=== PATIENT | male | born 1935 | race Caucasian/White ===

== ENCOUNTER 2017-01-16 14:05 | Emergency (ER) | payer MEDICARE, MEDICAID ==
[2017-01-16 14:17] VITALS: BP 112/72
--- NOTE | 2017-01-16 14:33 | EDM.PDOC ---
ED HPI GENERAL MEDICAL PROBLEM - General Chief Complaint: General Stated Complaint: PAIN R SIDE. [phone] Time Seen by Provider: 01/16/17 14:27 Source of Information: Reports: Patient History Limitations: Reports: No limitations - History of Present Illness INITIAL COMMENTS - FREE TEXT/NARRATIVE: This 81 yo male patient reports to the ED due to pain in his right lower ribs that started this morning. The patient reports he has COPD and coughs all the time, but today he has pain only when he takes a deep breath or coughs. Onset: today Onset Date: 01/16/17 Onset Time: 09:00 Duration: Intermittent Location: Reports: chest (right lower rib pain) Quality: Reports: Ache Severity: moderate Improves with: Reports: None Worsens with: Reports: None Associated Symptoms: Reports: chest pain (right lower ribs) Treatments HOSPITALIST MEDICAL DIRECTOR: Reports: Breathing treatments Right Abdominal Pain Score (Numeric/FACES): 5 - Related Data Allergies Allergy/AdvReac Type Severity Reaction Status Date / Time Penicillins Allergy Mild Rash Verified 11/06/14 13:26 roflumilast Allergy Mild Itching Verified 11/06/14 13:26 tiotropium bromide Allergy Unknown UNKNOWN Verified 11/06/14 13:26 [From Spiriva with HandiHaler] cortisone Allergy Hallucinati Verified 09/14/15 13:21 ons diltiazem Allergy Rash Verified 11/06/14 13:26 simvastatin Allergy Itching Verified 09/14/15 13:21 tiotropium Allergy Itching Verified 11/06/14 13:26 Home Meds: Home Meds Pantoprazole [Protonix] 40 mg PO DAILY 09/15/15 [History] Albuterol/Ipratropium [DuoNeb 3.0-0.5 MG/3 ML] 3 ml NEB TID #90 neb 07/23/16 [Rx ] Budesonide [Pulmicort] 0.5 mg NEB BIDRT #60 neb 07/23/16 [Rx] Levofloxacin [Levaquin] 500 mg PO Q24H #5 tablet 07/23/16 [Rx] Prednisone [IJD: Prednisone] 5 mg PO DAILY #2 tab 07/23/16 [Rx] Prednisone [IJD: predniSONE] 40 mg PO WITHBREAKFAST #2 tab 07/23/16 [Rx] Prednisone [IJP: Prednisone] 10 mg PO DAILY #2 tab 07/23/16 [Rx] Prednisone [IMW: predniSONE] 20 mg PO WITHBREAKFAST #2 tab 07/23/16 [Rx] Past Medical History Cardiovascular History: Reports: CAD, Hypertension Respiratory History: Reports: COPD Gastrointestinal History: Reports: Colon polyp, Diverticulosis, GERD, Other ( see below) Other Gastrointestinal History: angiodysplasiaof the colon Musculoskeletal History: Reports: Other (see below) Other Musculoskeletal History: neuropathy, Dupuytren's contracture, spdondylosis Neurological History: Reports: Neuropathy, diabetic, Other (see below) Other Neuro History: carpal tunnel syndrome Endocrine/Metabolic History: Reports: Diabetes, type II Hematologic History: Reports: Anemia - Past Surgical History Cardiovascular Surgical History: Reports: None Respiratory Surgical History: Reports: None GI Surgical History: Reports: Colonoscopy Social & Family History - Family History Family Medical History: Noncontributory - Tobacco Use Smoking Status *Q: Unknown Ever Smoked Years of Tobacco use: 20 Used Tobacco, but Quit: Yes Month Tobacco Last Used: 12 Second Hand Smoke Exposure: No - Caffeine Use Caffeine Use: Reports: None - Alcohol Use Days Per Week of Alcohol Use: 1 Number of Drinks Per Day: 1 Total Drinks Per Week: 1 - Recreational Drug Use Recreational Drug Use: No - Living Situation & Occupation Living situation: Reports: single, , alone Occupation: retired ED ROS GENERAL - Review of Systems Review Of Systems: See Below Constitutional: Reports: no symptoms HEENT: Reports: No symptoms Respiratory: Reports: pleuritic chest pain (right lower ribs) Cardiovascular: Reports: No symptoms Endocrine: Reports: no symptoms GI/Abdominal: Reports: No symptoms : Reports: no symptoms Musculoskeletal: Reports: no symptoms Skin: Reports: no symptoms Neurological: Reports: no symptoms Psychiatric: Reports: No symptoms Hematologic/Lymphatic: Reports: no symptoms Immunologic: Reports: no symptoms ED EXAM, GENERAL - Physical Exam Exam: See Below Exam Limited By: No limitations General Appearance: alert, WD/WN, mild distress Eye Exam: bilateral eye: EOMI, normal inspection, PERRL Ears: normal external exam, normal canal, normal TMs, hearing loss Nose: normal inspection, normal mucosa, no blood Throat/Mouth: Normal inspection, Normal lips, Normal teeth, Normal gums, Normal oropharynx, Normal voice, No airway compromise Head: atraumatic, normocephalic Neck: normal inspection, supple, non-tender, full range of motion Respiratory/Chest: no respiratory distress, lungs clear, normal breath sounds, no accessory muscle use, other (chest wall tenderness to right lower quadrant, no evidence of trauma, no bruising) Cardiovascular: normal peripheral pulses, regular rate, rhythm, no edema, no gallop, no JVD, no murmur, no rub GI/Abdominal: normal bowel sounds, soft, non tender, no organomegaly, no distention, no abnormal bruit, no mass (Male) Exam: Deferred Rectal (Males) Exam: Deferred Back Exam: normal inspection, full range of motion, NT Extremities: normal inspection, normal range of motion, non-tender, normal capillary refill, no pedal edema Neurological: alert, oriented, CN II-XII intact, normal cognition, normal gait, normal reflexes, no motor/sensory deficits Psychiatric: normal affect, normal mood Skin Exam: Warm, Dry, Intact, Normal color, No rash Lymphatic: no adenopathy Course - Vital Signs Last Recorded V/S: Last Vital Signs Temp 36.3 C 01/16/17 14:15 Pulse 105 H 01/16/17 14:15 Resp 20 01/16/17 14:15 BP 112/72 01/16/17 14:15 Pulse Ox 92 L 01/16/17 14:15 - Orders/Labs/Meds Labs: Laboratory Tests 01/16/17 01/16/17 Range/Units 14:50 14:50 WBC 10.4 H (5.0-10.0) 10^3/uL RBC 3.72 L (4.6-6.2) 10^6/uL Hgb 12.1 L (14.0-18.0) g/dL Hct 36.9 L (40.0-54.0) % MCV 99.2 (80-100) fL MCH 32.5 (27.0-34.0) pg MCHC 32.8 L (33.0-35.0) g/dL Plt Count 298 (150-450) 10^3/uL Neut % (Auto) 73.1 (42.2-75.2) % Lymph % (Auto) 19.5 L (20.5-50.1) % [place] % (Auto) 5.7 (2-8) % Eos % (Auto) 1.3 (1.0-3.0) % Baso % (Auto) 0.4 (0.0-1.0) % Sodium 137 (135-145) mmol/L Potassium 3.9 (3.6-5.0) mmol/L Chloride 102 (101-111) mmol/L Carbon Dioxide 24.0 (21.0-31.0) mmol/L Anion Gap 14.9 BUN 24 H (7-18) mg/dL Creatinine 1.3 (0.6-1.3) mg/dL Est Cr Clr Drug Dosing 44.46 mL/min Estimated GFR (MDRD) 53 BUN/Creatinine Ratio 18.46 Glucose 153 H (74-105) mg/dL Calcium 9.2 (8.4-10.2) mg/dl Total Bilirubin 0.7 (0.2-1.0) mg/dL AST 24 (10-42) IU/L ALT 13 (10-60) IU/L Alkaline Phosphatase 48 (42-121) IU/L Total Protein 7.4 (6.7-8.2) g/dl Albumin 3.7 (3.2-5.5) g/dl Globulin 3.7 Albumin/Globulin Ratio 1.00 Departure - Departure Time of Disposition: 15:38 Disposition: Home, Self-Care 01 Condition: fair Clinical Impression: Right-sided chest wall pain Instructions: Chest Wall Pain, [id number] Forms: ED Department Discharge Care Plan Goals: The patient was advised of the examination, lab and x-ray results during the visit. The patient was encouraged to continue to do his nebulizer treatments as prescribed. If the patient has any additional symptoms or further concerns, the patient should follow-up with his primary care facility or return to the emergency department.
--- NOTE | 2017-01-16 15:02 | CR ---
CLINICAL HISTORY: 81-year-old male with lower right chest pain (exacerbated by cough) upon awakening this a.m. No known trauma this patient reported with chronic, asymmetric extrathoracic subcutaneous mass (right of midline) upper back of the neck, posteriorly. INTERPRETATION: 1. Asymmetric large extrathoracic soft tissue mass posteriorly, right of midline, over the right ape x. 2. COPD and blunting both costophrenic sulci with pleural parenchymal scarring left lower lobe. 3. Normal cardiac silhouette without cephalization of flow or signs of alveolar edema. 4. No new lung mass, hilar lymphadenopathy or focal lobar pneumonia when compared directly to Oct emb2013 chest radiograph. CONCLUSION: No acute new cardiopulmonary abnormality.
== END 2017-01-16 15:48 | disposition home or self-care (01) ==
LOC: DL.ED 14:05
DX: R07.89 Other chest pain (principal); I25.10 Atherosclerotic heart disease of native coronary artery without angina pectoris; I10 Essential (primary) hypertension; J44.9 Chronic obstructive pulmonary disease, unspecified; K21.9 Gastro-esophageal reflux disease without esophagitis; E11.40 Type 2 diabetes mellitus with diabetic neuropathy, unspecified; Z86.2 Personal history of diseases of the blood and blood-forming organs and certain disorders involving the immune mechanism; Z79.899 Other long term (current) drug therapy; Z88.8 Allergy status to other drugs, medicaments and biological substances; Z88.0 Allergy status to penicillin
CPT/HCPCS: 36415; 71020; 80053; 85025; 99283; 99284

== ENCOUNTER 2017-04-18 10:54 | Inpatient (IN) | payer MEDICARE, MEDICAID ==
[2017-04-18] MEDS: Albuterol/Ipratropium 3.0-0.5 MG/3 ML Neb Soln ONE ×2 (10:46→10:49)
[~2017-04-18 10:54] MED LIST: Albuterol 0.083% 2.5 MG/3 ML Neb Soln NEB ONE; Albuterol/Ipratropium 3.0-0.5 MG/3 ML Neb Soln NEB ONE; methylPREDNISolone Sodium Succinate 125 MG/2 ML SDV IVPUSH ONE
[2017-04-18] MEDS ORDERED: Sodium Chloride 0.9% 500 ML IV SCH (11:00)
[2017-04-18 11:09] LABS: CHLORIDE,CL 96 mmol/L (101-111); SODIUM,NA 130 mmol/L (135-145)
--- NOTE | 2017-04-18 12:09 | EDM.PDOC ---
ED HPI GENERAL MEDICAL PROBLEM - General Chief Complaint: Respiratory Problem Stated Complaint: IN BY AMBULANCE Time Seen by Provider: 04/18/17 11:00 Source of Information: Reports: Patient History Limitations: Reports: No Limitations - History of Present Illness INITIAL COMMENTS - FREE TEXT/NARRATIVE: patient is an 81-year-old male who has a history of COPD. He states that he began feeling yesterday and gradually increased shortness of breath today. He states the shortness of breath is worse he gets up and walks around better when he sits still.he denies fever chills nausea or vomiting patient uses home oxygen as needed not continuously the he states that he began to have increased need over the last 3 days. At the time of my exam he is having no pain he is in no acute distress he speaks in full sentences. He is able to give history Onset: Gradual Duration: Day(s): (3) Severity: Moderate Improves with: Reports: Rest Worsens with: Reports: Movement - Related Data Allergies Allergy/AdvReac Type Severity Reaction Status Date / Time Penicillins Allergy Mild Rash Verified 11/06/14 13:26 roflumilast Allergy Mild Itching Verified 11/06/14 13:26 tiotropium bromide Allergy Unknown UNKNOWN Verified 11/06/14 13:26 [From Spiriva with HandiHaler] cortisone Allergy Hallucinati Verified 09/14/15 13:21 ons diltiazem Allergy Rash Verified 11/06/14 13:26 simvastatin Allergy Itching Verified 09/14/15 13:21 tiotropium Allergy Itching Verified 11/06/14 13:26 Home Meds: Home Meds Pantoprazole [ProTONIX] 40 mg PO DAILY 09/15/15 [History] Albuterol/Ipratropium [DuoNeb 3.0-0.5 MG/3 ML] 3 ml NEB TID #90 neb 07/23/16 [Rx ] Budesonide [Pulmicort] 0.5 mg NEB BIDRT #60 neb 07/23/16 [Rx] Levofloxacin [Levaquin] 500 mg PO Q24H #5 tablet 07/23/16 [Rx] Prednisone [IJD: Prednisone] 5 mg PO DAILY #2 tab 07/23/16 [Rx] Prednisone [IJD: predniSONE] 40 mg PO WITHBREAKFAST #2 tab 07/23/16 [Rx] Prednisone [IJP: Prednisone] 10 mg PO DAILY #2 tab 07/23/16 [Rx] Prednisone [IMW: predniSONE] 20 mg PO WITHBREAKFAST #2 tab 07/23/16 [Rx] Past Medical History Cardiovascular History: Reports: CAD, Hypertension Respiratory History: Reports: COPD Gastrointestinal History: Reports: Colon Polyp, Diverticulosis, GERD, Other ( See Below) Other Gastrointestinal History: angiodysplasiaof the colon Musculoskeletal History: Reports: Other (See Below) Other Musculoskeletal History: neuropathy, Dupuytren's contracture, spdondylosis Neurological History: Reports: Neuropathy, Diabetic, Other (See Below) Other Neuro History: carpal tunnel syndrome Endocrine/Metabolic History: Reports: Diabetes, Type II Hematologic History: Reports: Anemia - Past Surgical History Cardiovascular Surgical History: Reports: None Respiratory Surgical History: Reports: None GI Surgical History: Reports: Colonoscopy Social & Family History - Family History Family Medical History: Noncontributory - Tobacco Use Smoking Status *Q: Unknown Ever Smoked Years of Tobacco use: 20 Used Tobacco, but Quit: Yes Month Tobacco Last Used: 12 Second Hand Smoke Exposure: No - Caffeine Use Caffeine Use: Reports: None - Alcohol Use Days Per Week of Alcohol Use: 1 Number of Drinks Per Day: 1 Total Drinks Per Week: 1 - Recreational Drug Use Recreational Drug Use: No - Living Situation & Occupation Living situation: Reports: Single, , Alone Occupation: Retired ED ROS GENERAL - Review of Systems Review Of Systems: ROS reveals no pertinent complaints other than HPI. ED EXAM, GENERAL - Physical Exam Exam: See Below Exam Limited By: No Limitations General Appearance: Alert, WD/WN, Mild Distress Eye Exam: Bilateral Eye: PERRL Nose: Normal Inspection, Normal Mucosa, No Blood Throat/Mouth: Normal Lips, Normal Oropharynx, Normal Voice, No Airway Compromise Head: Atraumatic, Normocephalic Neck: Normal Inspection, Supple, Non-Tender, Full Range of Motion Respiratory/Chest: No Accessory Muscle Use, Chest Non-Tender, Rhonchi, Wheezing. No: Accessory Muscle Use Cardiovascular: Normal Peripheral Pulses, Regular Rate, Rhythm, No Edema, No Gallop, No JVD, No Murmur, No Rub (Male) Exam: No Hernia, Normal Inspection, Normal Prostate, Circumcised Back Exam: Normal Inspection, Full Range of Motion, NT Extremities: Normal Inspection, Normal Range of Motion, Non-Tender, No Pedal Edema, Normal Capillary Refill. No: Pedal Edema Neurological: Alert, Oriented, Normal Cognition Psychiatric: Normal Affect, Normal Mood Skin Exam: Warm, Dry, Intact, Normal Color, No Rash Course - Vital Signs Last Recorded V/S: Last Vital Signs Temp 98.1 F 04/18/17 10:30 Pulse 102 H 04/18/17 10:45 Resp 22 H 04/18/17 10:30 BP 88/55 L 04/18/17 10:30 Pulse Ox 90 L 04/18/17 10:54 - Orders/Labs/Meds Orders: Active Orders 24 hr Category Date Time Status Peripheral IV Care [RC] . DIRECTED Care 04/18/17 10:34 Active RT Aerosol Therapy [RC] ASDIRECTED Care 04/18/17 10:36 Active CULTURE BLOOD [BC] Stat Lab 04/18/17 10:40 Received CULTURE BLOOD [BC] Stat Lab 04/18/17 11:03 Results CULTURE SPUTUM + SMEAR [RM] Stat Lab 04/18/17 11:58 Results Sodium Chloride 0.9% [Normal Saline] 1,000 ml Med 04/18/17 12:30 Active IV ASDIRECTED Sodium Chloride 0.9% [Normal Saline] 500 ml Med 04/18/17 11:00 Active IV .BOLUS Sodium Chloride 0.9% [Saline Flush] Med 04/18/17 10:34 Active 10 ml FLUSH ASDIRECTED PRN Blood Culture x2 Reflex Set [OM.PC] Stat Oth 04/18/17 10:34 Ordered Peripheral IV Insertion Adult [OM.PC] Routine Oth 04/18/17 10:34 Ordered Medication Orders Sodium Chloride (Normal Saline) 500 mls @ 999 mls/hr IV .BOLUS TERESA Last Admin: 04/18/17 11:00 Dose: 999 mls/hr Sodium Chloride (Normal Saline) 1,000 mls @ 125 mls/hr IV ASDIRECTED TERESA Sodium Chloride (Saline Flush) 10 ml FLUSH ASDIRECTED PRN PRN Reason: Keep Vein Open Labs: Laboratory Tests 04/18/17 04/18/17 04/18/17 Range/Units 10:40 10:40 10:40 WBC 19.4 H (5.0-10.0) 10^3/uL RBC 3.70 L (4.6-6.2) 10^6/uL Hgb 11.6 L (14.0-18.0) g/dL Hct 35.4 L (40.0-54.0) % MCV 95.7 (80-100) fL MCH 31.4 (27.0-34.0) pg MCHC 32.8 L (33.0-35.0) g/dL Plt Count 424 (150-450) 10^3/uL Neut % (Auto) 84.6 H (42.2-75.2) % Lymph % (Auto) 8.5 L (20.5-50.1) % [place] % (Auto) 6.7 (2-8) % Eos % (Auto) 0.1 L (1.0-3.0) % Baso % (Auto) 0.1 (0.0-1.0) % Sodium 130 L (135-145) mmol/L Potassium 4.3 (3.6-5.0) mmol/L Chloride 96 L (101-111) mmol/L Carbon Dioxide 23.0 (21.0-31.0) mmol/L Anion Gap 15.3 BUN 24 H (7-18) mg/dL Creatinine 1.0 (0.6-1.3) mg/dL Est Cr Clr Drug Dosing TNP Estimated GFR (MDRD) > 60 BUN/Creatinine Ratio 24.00 Glucose 191 H (74-105) mg/dL Lactic Acid (0.5-2.2) mmol/L Calcium 9.2 (8.4-10.2) mg/dl Total Bilirubin 0.7 (0.2-1.0) mg/dL AST 51 H (10-42) IU/L ALT 58 (10-60) IU/L Alkaline Phosphatase 76 (42-121) IU/L Creatine Kinase 23 L (26-174) IU/L Creatine Kinase Index 7.8 H (0-2.4) % CK-MB (CK-2) 1.80 (0.4-4.7) ng/mL Troponin I < 0.02 (0.00-0.02) ng/ml B-Natriuretic Peptide 146 H (0-100) pg/ml Total Protein 7.7 (6.7-8.2) g/dl Albumin 2.8 L (3.2-5.5) g/dl Globulin 4.9 Albumin/Globulin Ratio 0.57 04/18/17 Range/Units 10:40 WBC (5.0-10.0) 10^3/uL RBC (4.6-6.2) 10^6/uL Hgb (14.0-18.0) g/dL Hct (40.0-54.0) % MCV (80-100) fL MCH (27.0-34.0) pg MCHC (33.0-35.0) g/dL Plt Count (150-450) 10^3/uL Neut % (Auto) (42.2-75.2) % Lymph % (Auto) (20.5-50.1) % [place] % (Auto) (2-8) % Eos % (Auto) (1.0-3.0) % Baso % (Auto) (0.0-1.0) % Sodium (135-145) mmol/L Potassium (3.6-5.0) mmol/L Chloride (101-111) mmol/L Carbon Dioxide (21.0-31.0) mmol/L Anion Gap BUN (7-18) mg/dL Creatinine (0.6-1.3) mg/dL Est Cr Clr Drug Dosing Estimated GFR (MDRD) BUN/Creatinine Ratio Glucose (74-105) mg/dL Lactic Acid 1.6 (0.5-2.2) mmol/L Calcium (8.4-10.2) mg/dl Total Bilirubin (0.2-1.0) mg/dL AST (10-42) IU/L ALT (10-60) IU/L Alkaline Phosphatase (42-121) IU/L Creatine Kinase (26-174) IU/L Creatine Kinase Index (0-2.4) % CK-MB (CK-2) (0.4-4.7) ng/mL Troponin I (0.00-0.02) ng/ml B-Natriuretic Peptide (0-100) pg/ml Total Protein (6.7-8.2) g/dl Albumin (3.2-5.5) g/dl Globulin Albumin/Globulin Ratio Meds: Medications Generic Name Dose Route Start Last Admin Trade Name Freq PRN Reason Stop Dose Admin Sodium Chloride 500 mls @ 999 mls/hr 04/18/17 11:00 04/18/17 11:00 Normal Saline IV 999 mls/hr .BOLUS TERESA Administration Sodium Chloride 1,000 mls @ 125 mls/hr 04/18/17 12:30 Normal Saline IV ASDIRECTED TERESA Sodium Chloride 10 ml 04/18/17 10:34 Saline Flush FLUSH ASDIRECTED PRN Keep Vein Open Discontinued Medications Generic Name Dose Route Start Last Admin Trade Name Freq PRN Reason Stop Dose Admin Albuterol 2.5 mg 04/18/17 10:36 Proventil Neb Soln NEB 04/18/17 10:37 ONETIME ONE Albuterol 5 mg 04/18/17 10:48 04/18/17 10:50 Proventil Neb Soln NEB 04/18/17 10:49 5 mg ONETIME ONE Administration Albuterol/Ipratropium Confirm 04/18/17 10:40 04/18/17 10:49 Duoneb 3.0-0.5 Mg/3 Ml Administered 04/18/17 10:41 Not Given Dose 3 ml .ROUTE .STK-MED ONE Albuterol/Ipratropium 3 ml 04/18/17 10:47 04/18/17 10:49 Duoneb 3.0-0.5 Mg/3 Ml NEB 04/18/17 10:48 3 ml ONETIME ONE Administration Methylprednisolone Sodium Succinate 125 mg 04/18/17 10:36 04/18/17 11:30 Solu-Medrol IVPUSH 04/18/17 10:37 125 mg ONETIME ONE Administration - Radiology Interpretation Free Text/Narrative:: x-ray of the chest shows right lower lobe pneumonia per radiology report reviewed by myself - Re-Assessments/Exams Free Text/Narrative Re-Assessment/Exam: 04/18/17 12:12 patient is a chronically ill 81-year-old male who had IV established and was given DuoNeb x1 albuterol x2 and Solu-Medrol 125 and had significant decrease in work of breathing. Labs were obtained and reviewedand discussed with the patient. As well as Dr. Mix the hospitalist spine surgeon and the patient was admitted to the hospital. The patient remained stable with admission 04/18/17 12:52 Departure - Departure Time of Disposition: 12:52 Disposition: Admitted As Inpatient 64 Condition: fair Clinical Impression: Pneumonia of right lower lobe due to infectious organism, Hyponatremia Chronic obstructive pulmonary disease Qualifiers: COPD type: COPD with acute exacerbation Qualified Code(s): J44.1 - Chronic obstructive pulmonary disease with (acute) exacerbation Leukocytosis Qualifiers: Leukocytosis type: bandemia Qualified Code(s): D72.825 - Bandemia - Discharge Information Additional Instructions: Patient will be admitted for further evaluation and treatment the patient was agreeable to this plan of care and [facility] time of admissionpatient will have 750 mg of Levaquin started while in the emergency room. Cultures have been obtained - My Orders Last 24 Hours: My Active Orders 04/18/17 10:34 Peripheral IV Care [RC] . DIRECTED Sodium Chloride 0.9% [Saline Flush] 10 ml FLUSH ASDIRECTED PRN Blood Culture x2 Reflex Set [OM.PC] Stat Peripheral IV Insertion Adult [OM.PC] Routine 04/18/17 10:36 RT Aerosol Therapy [RC] ASDIRECTED 04/18/17 10:40 CULTURE BLOOD [BC] Stat 04/18/17 11:00 Sodium Chloride 0.9% [Normal Saline] 500 ml IV .BOLUS 04/18/17 11:03 CULTURE BLOOD [BC] Stat 04/18/17 11:58 CULTURE SPUTUM + SMEAR [RM] Stat 04/18/17 12:30 Sodium Chloride 0.9% [Normal Saline] 1,000 ml IV ASDIRECTED - Assessment/Plan Last 24 Hours: My Active Orders 04/18/17 10:34 Peripheral IV Care [RC] . DIRECTED Sodium Chloride 0.9% [Saline Flush] 10 ml FLUSH ASDIRECTED PRN Blood Culture x2 Reflex Set [OM.PC] Stat Peripheral IV Insertion Adult [OM.PC] Routine 04/18/17 10:36 RT Aerosol Therapy [RC] ASDIRECTED 04/18/17 10:40 CULTURE BLOOD [BC] Stat 04/18/17 11:00 Sodium Chloride 0.9% [Normal Saline] 500 ml IV .BOLUS 04/18/17 11:03 CULTURE BLOOD [BC] Stat 04/18/17 11:58 CULTURE SPUTUM + SMEAR [RM] Stat 04/18/17 12:30 Sodium Chloride 0.9% [Normal Saline] 1,000 ml IV ASDIRECTED
--- NOTE | 2017-04-18 12:20 | CR ---
CLINICAL HISTORY: 81-year-old male "short of air" INTERPRETATION: Abnormal AP portable chest. Asymmetric dense new pneumonic like consolidation right lower lobe when compared to 16 January 2017 exam. Clinical aspiration? 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 Normal cardiac silhouette without alveolar edema or dependent effusion. (Chronic blunting of the cos tophrenic sulci). No lung mass or other focal lobar consolidation. CONCLUSION: Right lower lobe pneumonia.
[2017-04-18] MEDS ORDERED: Sodium Chloride 0.9% 1,000 ML IV SCH (12:30)
[2017-04-18] MEDS ORDERED: Levofloxacin/Dextrose 5%-Water 750 MG in Premix Bag 1 BAG IV ONE (12:55)
[2017-04-18] MEDS ORDERED: Sodium Chloride 0.9% 10 ML Syringe FLUSH PRN (13:56)
[2017-04-18] MEDS ORDERED: Zolpidem 5 MG Tab PO PRN (13:56)
[2017-04-18] MEDS ORDERED: Acetaminophen 325 MG Tab PO PRN (13:56)
[2017-04-18] MEDS ORDERED: Albuterol 0.083% 2.5 MG/3 ML Neb Soln NEB PRN (13:59)
--- NOTE | 2017-04-18 14:09 | PCM.HP ---
H&P History of Present Illness - General Date of Service: 04/18/17 Admit Problem/Dx: Admission Diagnosis/Problem Admission Diagnosis/Problem Pneumonia Source of Information: Patient - History of Present Illness Initial Comments - Free Text/Narative: History of coronary artery disease, COPD on home oxygen, type 2 diabetes on no medication, hypertension. he has a chronic baseline shortness of breath, was recently evaluated by cardiology Dr. Almonte, if this is likely not cardiac in origin but recommended further pulmonary followup He presented with about a one-week history of increasing shortness of breath, cough, subjective fever, sputum production. the shortness of breath has been getting worse. He started to use his oxygen that he has been rarely doing. - Related Data Allergies/Adverse Reactions: Allergies Allergy/AdvReac Type Severity Reaction Status Date / Time Penicillins Allergy Mild Rash Verified 04/18/17 13:42 roflumilast Allergy Mild Itching Verified 04/18/17 13:42 tiotropium bromide Allergy Unknown UNKNOWN Verified 04/18/17 13:42 [From Spiriva with HandiHaler] cortisone Allergy Hallucinati Verified 04/18/17 13:42 ons diltiazem Allergy Rash Verified 04/18/17 13:42 simvastatin Allergy Itching Verified 04/18/17 13:42 tiotropium Allergy Itching Verified 04/18/17 13:42 Home Medications: Home Meds Pantoprazole [ProTONIX] 40 mg PO DAILY 09/15/15 [History] Albuterol/Ipratropium [DuoNeb 3.0-0.5 MG/3 ML] 3 ml NEB TID #90 neb 07/23/16 [Rx ] Budesonide [Pulmicort] 0.5 mg NEB BIDRT #60 neb 07/23/16 [Rx] Albuterol [Proventil Neb Soln] 2.5 mg NEB QID PRN 04/18/17 [History] Amoxicillin 1,000 mg PO DAILY 04/18/17 [History] Clopidogrel [Plavix] 75 mg PO DAILY 04/18/17 [History] Docusate Sodium [Colace] 100 mg PO DAILY PRN 04/18/17 [History] Fluticasone Propionate [Flonase] 1 spray NASBOTH DAILY 04/18/17 [History] Ranitidine HCl [Zantac] 150 mg PO BID 04/18/17 [History] Past Medical History Cardiovascular History: Reports: CAD, Hypertension Respiratory History: Reports: COPD Gastrointestinal History: Reports: Colon Polyp, Diverticulosis, GERD, Other ( See Below) Other Gastrointestinal History: angiodysplasiaof the colon Musculoskeletal History: Reports: Other (See Below) Other Musculoskeletal History: neuropathy, Dupuytren's contracture, spdondylosis Neurological History: Reports: Neuropathy, Diabetic, Other (See Below) Other Neuro History: carpal tunnel syndrome Endocrine/Metabolic History: Reports: Diabetes, Type II Hematologic History: Reports: Anemia - Past Surgical History Cardiovascular Surgical History: Reports: None Respiratory Surgical History: Reports: None GI Surgical History: Reports: Colonoscopy Social & Family History - Family History Family Medical History: Noncontributory - Tobacco Use Smoking Status *Q: Unknown Ever Smoked Years of Tobacco use: 20 Used Tobacco, but Quit: Yes Month Tobacco Last Used: 12 Second Hand Smoke Exposure: No - Caffeine Use Caffeine Use: Reports: None - Alcohol Use Days Per Week of Alcohol Use: 1 Number of Drinks Per Day: 1 Total Drinks Per Week: 1 - Recreational Drug Use Recreational Drug Use: No - Living Situation & Occupation Living situation: Reports: Single, , Alone Occupation: Retired H&P Review of Systems - Review of Systems: Review Of Systems: See Below General: Reports: Fever (subjective), Chills, Malaise, Weakness Pulmonary: Reports: Shortness of Breath, Wheezing. Denies: Pleuritic Chest Pain Cardiovascular: Reports: Dyspnea on Exertion. Denies: Chest Pain, Palpitations Gastrointestinal: Denies: Abdominal Pain Musculoskeletal: Denies: Neck Pain Psychiatric: Denies: Confusion Exam - Exam Exam: See Below - Vital Signs Vital Signs: Last Vital Signs Temp 37.3 C 04/18/17 13:36 Pulse 53 L 04/18/17 13:36 Resp 20 04/18/17 13:36 BP 106/67 04/18/17 13:36 Pulse Ox 93 L 04/18/17 13:56 Weight: 70.851 kg - Exam General: Alert, Oriented HEENT: EOMI Neck: Supple Lungs: Normal Respiratory Effort, Wheezing (bilateral). No: Rales Cardiovascular: Regular Rate, Regular Rhythm Abdomen: Normal Bowel Sounds, Soft Extremities: No: Edema Skin: Warm, Other (large lipoma on the upper back) Neuro Extensive - Mental Status: Alert, Oriented x3, Normal Mood/Affect, Normal Cognition Psychiatric: Alert, Normal Affect, Normal Mood - Patient Data Result Diagrams: 04/18/17 10:40 04/18/17 10:40 Imaging Impressions last 24 hrs: chest x-ray per official reading shows a right lower lobe infiltrate *Q Meaningful Use (ADM) - VTE *Q VTE Criteria *Q: - Stroke *Q Stroke Criteria *Q: - AMI *Q AMI Criteria *Q: - Problem List (1) Hyperglycemia SNOMED Code(s): 83808109 ICD Code: R73.9 - HYPERGLYCEMIA, UNSPECIFIED Status: Acute Current Visit : Yes (2) Pneumonia of right lower lobe due to infectious organism SNOMED Code(s): 664871794, 148708383 ICD Code: J18.1 - LOBAR PNEUMONIA, UNSPECIFIED ORGANISM Status: Acute Current Visit: Yes (3) Acute exacerbation of chronic obstructive airways disease SNOMED Code(s): 158805200 ICD Code: J44.1 - CHRONIC OBSTRUCTIVE PULMONARY DISEASE W (ACUTE) EXACERBATION Status: Acute Current Visit: No (4) Hyponatremia SNOMED Code(s): 89032056 ICD Code: E87.1 - HYPO-OSMOLALITY AND HYPONATREMIA Status: Acute Current Visit: No Problem List Initiated/Reviewed/Updated: Yes Orders Last 24hrs: Active Orders 24 hr Category Date Time Status Antiembolic Devices [RC] PER UNIT ROUTINE Care 04/18/17 13:58 Ordered Blood Glucose Check, Bedside [RC] QIDACANDBED Care 04/18/17 13:56 Ordered Oxygen Therapy [RC] PRN Care 04/18/17 13:56 Ordered Up With Assistance [RC] ASDIRECTED Care 04/18/17 13:56 Ordered VTE/DVT Education [RC] PER UNIT ROUTINE Care 04/18/17 13:56 Ordered Vital Signs [RC] Q4H Care 04/18/17 13:56 Ordered Consistent Carbohydrate Diet [DIET] Diet 04/18/17 Dinner Ordered Acetaminophen [Tylenol] Med 04/18/17 13:56 Ordered 650 mg PO Q4H PRN Albuterol [Proventil Neb Soln] Med 04/18/17 13:59 Ordered 2.5 mg NEB Q4HRRT PRN Albuterol/Ipratropium [DuoNeb 3.0-0.5 MG/3 ML] Med 04/18/17 14:00 Ordered 3 ml NEB TID Budesonide [Pulmicort] Med 04/18/17 18:00 Ordered 0.5 mg NEB BIDRT Clopidogrel [Plavix] Med 04/19/17 09:00 Ordered 75 mg PO DAILY Docusate Sodium [Colace] Med 04/18/17 13:56 Ordered 100 mg PO BID PRN Fluticasone Propionate [Flonase] Med 04/19/17 09:00 Ordered 1 spray NASBOTH DAILY Heparin Sodium Med 04/18/17 14:00 Ordered 5,000 units SUBCUT Q8HR Insulin Aspart [NovoLOG] Med 04/18/17 17:00 Ordered See Protocol SUBCUT TIDAC Levofloxacin/Dextrose 5%-Water [Levaquin in D5W 750 MG/ Med 04/19/17 14:00 Ordered 150 ML] 750 mg Premix Bag 1 bag IV Q24H Pantoprazole [ProTONIX] Med 04/19/17 09:00 Ordered 40 mg PO DAILY Sodium Chloride 0.9% [Saline Flush] Med 04/18/17 13:56 Ordered 10 ml FLUSH ASDIRECTED PRN Zolpidem [Ambien] Med 04/18/17 13:56 Ordered 5 mg PO BEDTIME PRN methylPREDNISolone Sod Succ [Solu-MEDROL] Med 04/18/17 14:00 Ordered 40 mg IVPUSH Q8H Antiembolic Hose [OM.PC] Per Unit Routine Oth 04/18/17 13:57 Ordered Saline Lock Insert [OM.PC] Routine Oth 04/18/17 13:56 Ordered Resuscitation Status Routine Resus Stat 04/18/17 13:56 Ordered Medication Orders Acetaminophen (Tylenol) 650 mg PO Q4H PRN PRN Reason: Pain (Mild 1-3)/fever Albuterol (Proventil Neb Soln) 2.5 mg NEB Q4HRRT PRN PRN Reason: Shortness of Breath Albuterol/Ipratropium (Duoneb 3.0-0.5 Mg/3 Ml) 3 ml NEB TID TERESA Budesonide (Pulmicort) 0.5 mg NEB BIDRT TERESA Clopidogrel Bisulfate (Plavix) 75 mg PO DAILY [facility] Docusate Sodium (Colace) 100 mg PO BID PRN PRN Reason: Constipation Fluticasone Propionate (Flonase) gm NASBOTH DAILY [facility] Heparin Sodium (Porcine) (Heparin Sodium) 5,000 units SUBCUT Q8HR TERESA Levofloxacin/Dextrose 750 mg/ (Premix) 150 mls @ 100 mls/hr IV ONETIME ONE Stop: 04/18/17 14:24 Last Admin: 04/18/17 13:04 Dose: 100 mls/hr Levofloxacin/Dextrose 750 mg/ (Premix) 150 mls @ 100 mls/hr IV Q24H TERESA Insulin Aspart (Novolog) 0 unit SUBCUT TIDAC TERESA PRN Reason: Protocol Methylprednisolone Sodium Succinate (Solu-Medrol) 40 mg IVPUSH Q8H TERESA Pantoprazole Sodium (Protonix) 40 mg PO DAILY [facility] Sodium Chloride (Saline Flush) 10 ml FLUSH ASDIRECTED PRN PRN Reason: Keep Vein Open Sodium Chloride (Saline Flush) 10 ml FLUSH ASDIRECTED PRN PRN Reason: Keep Vein Open Zolpidem Tartrate (Ambien) 5 mg PO BEDTIME PRN PRN Reason: Sleep Assessment/Plan Comment:: the patient is an 81-year-old gentleman with a history of coronary artery disease, COPD, diet-controlled diabetes. Acute community acquired right lower lobe pneumonia Will obtain blood culture, sputum culture The patient has penicillin allergy Will start with IV levofloxacin Acute on chronic hypoxemic respiratory failure Supplemental oxygen as needed Acute COPD exacerbation Start IV steroids, Pulmicort He was scheduled and p.r.n. DuoNeb Hyperglycemia with diet-controlled diabetes Likely exacerbated by the steroids Will give her supplemental insulin as needed follow blood sugars and consider long-acting insulin if needed Hyponatremia Mild, likely secondary to the lung disease Follow periodically History of coronary artery disease Recent evaluation with cardiology was reassuring Continue Plavix Gastroesophageal reflux disease treat with protonix DVT prophylaxis with subcutaneous heparin
[2017-04-18] MEDS: Heparin Sodium 5,000 Units/ML Vial SUBCUT SCH ×2 (14:41→21:00)
[2017-04-18] MEDS: Albuterol/Ipratropium 3.0-0.5 MG/3 ML Neb Soln NEB SCH ×3 (14:42→20:57)
[2017-04-18] MEDS ORDERED: Insulin Aspart 100 Units/ML 3 ML Pen SUBCUT SCH (17:00)
[2017-04-18] MEDS: Budesonide 0.5 MG/2 ML Neb Susp NEB SCH (18:04)
[2017-04-18] MEDS: Sodium Chloride 0.9% 10 ML Syringe FLUSH PRN (21:00)
[2017-04-18] MEDS: methylPREDNISolone Sodium Succinate 40 MG/1 ML SDV IVPUSH SCH (21:01)
[2017-04-18] MEDS: Insulin Aspart 100 Units/ML 3 ML Pen SUBCUT SCH (22:34)
[2017-04-18] MEDS: Docusate Sodium 100 MG Cap PO PRN (22:36)
[2017-04-19] MEDS: Heparin Sodium 5,000 Units/ML Vial SUBCUT SCH ×3 (05:48→22:02)
[2017-04-19] MEDS: Pantoprazole 40 MG Tab.CR PO SCH (05:51)
[2017-04-19] MEDS: Sodium Chloride 0.9% 10 ML Syringe FLUSH PRN ×3 (06:27→22:20)
[2017-04-19] MEDS: methylPREDNISolone Sodium Succinate 40 MG/1 ML SDV IVPUSH SCH ×3 (06:27→22:17)
[2017-04-19] MEDS: Budesonide 0.5 MG/2 ML Neb Susp NEB SCH ×2 (07:31→18:41)
[2017-04-19] MEDS: Albuterol/Ipratropium 3.0-0.5 MG/3 ML Neb Soln NEB SCH ×3 (07:31→21:45)
[2017-04-19] MEDS: Insulin Aspart 100 Units/ML 3 ML Pen SUBCUT SCH ×4 (08:21→21:44)
[2017-04-19] MEDS: Fluticasone Propionate Nasal Spray 16 GM Bottle NASBOTH SCH (08:22)
[2017-04-19] MEDS: Clopidogrel 75 MG Tab PO SCH (08:23)
[2017-04-19] MEDS ORDERED: Bisacodyl 10 MG Supp RECTAL PRN (10:29)
--- NOTE | 2017-04-19 10:52 | PN ---
DATE: 04/19/2017 SUBJECTIVE: He does not indicates that he still feels short of breath. He is coughing and it is productive of yellowish sputum. No chest pain. No headache, no blurring of vision. He is weak. His shortness of breath has improved since admission. REVIEW OF SYSTEMS: Cardiac, constitutional, respiratory, gastrointestinal, genitourinary system were reviewed. No other pertinent findings except as noted above. OBJECTIVE: General: The patient is alert, oriented to place, time, and person. Head: Atraumatic and normocephalic. Ear, Nose, and throat, unremarkable. Chest: Diminished air entry bilaterally. CVS: Regular rate and rhythm. Abdomen: Soft and nontender. Extremities: No pedal edema. No finger clubbing. skin: No rash. Vital Signs: Oxygen saturation is 94% on 2 L. Blood pressure 100/54, temperature 36.6. LABORATORY DATA: White count was 19,000, hemoglobin 11.6, platelets 424, glucose is 289. ASSESSMENT: 1. Community-acquired pneumonia. The patient has right lower lobe infiltrate. 2. Acute on chronic hypoxemic respiratory failure. This is secondary to pneumonia. He does have chronic oxygen use 2 L/minute. 3. Acute exacerbation of chronic obstructive pulmonary disease. 4. This also precipitated by pneumonia. 5. Diabetes mellitus. This has been diet controlled. However, blood sugar has been running high because of steroids. 6. Hyponatremia. 7. Coronary artery disease. Denies having chest pain. Has been on Plavix. 8. Gastroesophageal reflux disease. PLAN: 1. We will obtain repeat CBC. 2. Continue intravenous antibiotics. 3. Intravenous levofloxacin. 4. Keep the patient on Solu-Medrol. 5. Nebulize with DuoNeb. 6. Encourage increased activity. [facility] /[id number]
[2017-04-19] MEDS: Levofloxacin/Dextrose 5%-Water 750 MG in Premix Bag 1 BAG IV SCH (12:51)
[2017-04-19] MEDS: Docusate Sodium 100 MG Cap PO PRN (23:24)
[2017-04-20] MEDS: Pantoprazole 40 MG Tab.CR PO SCH (05:47)
[2017-04-20] MEDS: methylPREDNISolone Sodium Succinate 40 MG/1 ML SDV IVPUSH SCH (05:48)
[2017-04-20] MEDS: Sodium Chloride 0.9% 10 ML Syringe FLUSH PRN (05:48)
[2017-04-20] MEDS: Heparin Sodium 5,000 Units/ML Vial SUBCUT SCH ×3 (05:48→22:44)
[2017-04-20] MEDS: Budesonide 0.5 MG/2 ML Neb Susp NEB SCH ×2 (07:20→18:17)
[2017-04-20] MEDS: Albuterol/Ipratropium 3.0-0.5 MG/3 ML Neb Soln NEB SCH ×3 (07:20→21:04)
[2017-04-20] MEDS: Fluticasone Propionate Nasal Spray 16 GM Bottle NASBOTH SCH (08:30)
[2017-04-20] MEDS: Clopidogrel 75 MG Tab PO SCH (08:31)
[2017-04-20] MEDS: Insulin Aspart 100 Units/ML 3 ML Pen SUBCUT SCH ×4 (08:31→21:29)
--- NOTE | 2017-04-20 11:23 | PN ---
DATE: 04/20/2017 SUBJECTIVE: Mr. Jamil Cadet is an 81-year-old male with medical history significant for hypertension, hyperlipidemia, type 2 diabetes mellitus, not on any medication, diet controlled, chronic obstructive pulmonary disease, chronic hypoxic respiratory failure, was admitted to the hospital with complaints of increasing shortness of breath and noted to have right lower lobe pneumonia along with COPD exacerbation and acute respiratory failure. For the last 24 hours, the patient denies any complaints of chest pain. No shortness of breath. No abdominal pain. No nausea. No vomiting. No diarrhea. No acute events overnight. REVIEW OF SYSTEMS: Cardiovascular, respiratory, gastrointestinal, neurology, constitutional were all evaluated. PHYSICAL EXAMINATION: Vital Signs: Temperature of 97.9, pulse of 86, blood pressure of 123/77, respiratory rate of 20, and saturating at 96% on room air. General Appearance: The patient is well oriented to time, place, and person. Follows commands spontaneously. Cardiovascular System: S1 and S2 heard with normal intensity. No gallops. Respiratory: Clear to auscultation bilaterally. Crepitations at the bases mostly on the right lower lobe. No wheeze. Abdomen: Soft. Bowel sounds positive. Nontender. No rigidity. Extremities: No edema in bilateral lower extremities. Neurology: No gross focal neurological deficits. Skin: No acute rash noted. MEDICATIONS: Reviewed. 1. Continue with Tylenol 650 mg every 4 hours as needed for pain. 2. Albuterol every 4 hours as needed. 3. Dulcolax daily. 4. Pulmicort 0.5 mg nebulizer twice a day. 5. Plavix 75 mg daily. 6. Fluticasone daily. 7. Heparin 5000 subcutaneous q.8 hourly. 8. Levaquin 750 mg daily. 9. Ambien 5 mg at bedtime as needed. 10.Methylprednisolone 40 mg IV q.8 hourly. LABORATORY DATA: Reviewed. WBC 15.1, hemoglobin 10, hematocrit 30, and platelet count 412. Blood glucose 198. ASSESSMENT: 1. Acute chronic obstructive pulmonary disease exacerbation. 2. Acute respiratory failure. 3. Pneumonia. 4. Type 2 diabetes mellitus. 5. Hypertension. 6. Hyperlipidemia. 7. Weakness. PLAN: 1. Pneumonia. The patient was admitted with pneumonia. He is currently on IV antibiotic with Levaquin. So far, his cultures remain negative. We will closely follow. He remains afebrile. Continues to have leukocytosis. We will repeat a CBC in a.m. 2. Chronic obstructive pulmonary disease exacerbation. The patient was noted to have wheeze on initial presentation. His wheezing has much improved. He is started on nebulizer treatment and IV methylprednisolone. We will switch him to oral prednisone at this time. Continue the nebulizer treatment. 3. Acute respiratory failure. The patient was noted to be hypoxic at the time of admission, has home oxygen. We will increase the patient to ambulate around. We will get a walking desat study to see if the patient would need oxygen on exertion. 4. Hypertension. The patient's blood pressure seems to be in acceptable range. Continue with current antihypertensive medications. 5. Type 2 diabetes mellitus. The patient is currently on insulin regimen, supplemental scale. Have him check his fingersticks with each meals and dose adjust medications. The patient might benefit from adding a low-dose lisinopril, but he was noted to have low blood pressure at the time of admission, so, we will closely follow and add lisinopril given his underlying diabetes for renal protective cause. 6. Deep vein thrombosis prophylaxis. Continue with heparin for DVT prophylaxis. 7. Discussed with family members at bedside. [facility] /[id number]
[2017-04-20] MEDS: Levofloxacin/Dextrose 5%-Water 750 MG in Premix Bag 1 BAG IV SCH (12:58)
[2017-04-20] MEDS: Docusate Sodium 100 MG Cap PO PRN (21:03)
[2017-04-21] MEDS: Pantoprazole 40 MG Tab.CR PO SCH (06:06)
[2017-04-21] MEDS: Heparin Sodium 5,000 Units/ML Vial SUBCUT SCH ×3 (06:11→21:26)
[2017-04-21 07:05] LABS: CHLORIDE,CL 105 mmol/L (101-111); SODIUM,NA 136 mmol/L (135-145)
[2017-04-21] MEDS: Budesonide 0.5 MG/2 ML Neb Susp NEB SCH ×2 (07:20→18:38)
[2017-04-21] MEDS: Albuterol/Ipratropium 3.0-0.5 MG/3 ML Neb Soln NEB SCH ×3 (07:20→18:39)
[2017-04-21] MEDS ORDERED: predniSONE 20 MG Tab PO SCH (08:00)
[2017-04-21] MEDS: Clopidogrel 75 MG Tab PO SCH (08:39)
[2017-04-21] MEDS: Fluticasone Propionate Nasal Spray 16 GM Bottle NASBOTH SCH (08:41)
[2017-04-21] MEDS: Insulin Aspart 100 Units/ML 3 ML Pen SUBCUT SCH ×4 (08:42→21:24)
[2017-04-21] MEDS: methylPREDNISolone Sodium Succinate 40 MG/1 ML SDV IVPUSH SCH ×2 (12:10→18:00)
--- NOTE | 2017-04-21 12:12 | PN ---
DATE: 04/21/2017 HISTORY AND PHYSICAL: Mr. Jamil Cadet is an 81-year-old male with medical history significant for hypertension, hyperlipidemia, type 2 diabetes mellitus which is diet controlled, chronic obstructive pulmonary airway disease, chronic hypoxic respiratory failure, admitted with complaints of increasing shortness of breath, noted to have right lower lobe pneumonia along with acute COPD exacerbation and acute respiratory failure. For the past 24 hours, the patient's shortness of breath has gotten worse and we actually changed IV methylprednisolone to oral prednisone which could potentially lead to this acute exacerbation. He also required nasal cannula oxygen overnight. He grades the shortness of breath as 3 to 4/10 in intensity, aggravated on exertion, relieved with rest, not associated with any chest pain. Denies any abdominal pain. No nausea. No vomiting. No diarrhea. REVIEW OF SYSTEMS: Cardiovascular, respiratory, gastrointestinal, neurology, constitutional were all evaluated. PHYSICAL EXAMINATION: Vital signs: Temperature of 99.2, pulse of 121, blood pressure 106/47, respiratory rate of 20, saturating at 90% on 2 L of oxygen. General Appearance: The patient is well oriented to time, place, and person. Follows commands spontaneously. Cardiovascular System: S1 and S2 heard with normal intensity. No gallops. Respiratory System: Bilateral wheeze noted. Mild crepitations at the right lower lobe. Abdomen: Soft. Bowel sounds positive. Nontender. No rigidity. Extremities: No edema in bilateral lower extremities. MEDICATIONS: Reviewed, continue with; 1. Tylenol 650 every 4 hours for pain and fever. 2. DuoNeb changed to every 6 hours for wheezing. 3. Pulmicort 0.5 mg nebulizer twice a day. 4. Plavix 75 mg daily. 5. Flonase as needed. 6. Heparin 5000 subcutaneous q.8 hourly. 7. NovoLog supplemental scale. 8. Levaquin 750 mg every 24 hours. 9. Solu-Medrol 40 mg IV q.8 hourly. 10.Protonix 40 mg daily. 11.Ambien 5 mg at bedtime as needed for sleep. LABORATORY DATA: WBC 13.4, hemoglobin 9.9, hematocrit 29.2, platelet count 384. Sodium 136, potassium 4.8, chloride 105, bicarb 20, BUN 39, creatinine 1.1, glucose 169. ASSESSMENT: 1. Pneumonia. 2. Acute chronic obstructive pulmonary disease exacerbation. 3. Acute respiratory failure. 4. Hypertension. 5. Hyperlipidemia. 6. Type 2 diabetes mellitus. PLAN: 1. Pneumonia. The patient was admitted with pneumonia. He is currently on Levaquin. His cultures remain negative. Continue the same. His leukocytosis is improving at this time. 2. Acute chronic obstructive pulmonary disease exacerbation. The patient continues to have wheeze. We tried to decrease the Solu-Medrol to oral prednisone yesterday this could be resulting in this chronic obstructive pulmonary disease exacerbation. We will switch him back to IV methylprednisolone 40 mg q.8 hourly. We will continue with the nebulizers. Increase the DuoNeb to 4 times a day and continue with the Pulmicort nebulizer. Continue supplemental oxygen. 3. Acute respiratory failure. The patient continues to be hypoxic. Continue supplemental oxygen to maintain a saturation of 95%. 4. Hypertension. The patient was noted to have low blood pressure this morning, not on any active antihypertensive medication. Avoid any hypotensive episodes. This could be resulting again from chronic obstructive pulmonary disease exacerbation as he was noted to be tachycardic. 5. Type 2 diabetes mellitus, this is diet controlled. Use supplemental scale insulin as needed for additional coverage of his blood glucose as the patient is noted to be on steroid dosing. 6. Discussed with family members at bedside. 7. Deep vein thrombosis prophylaxis. Continue with heparin 5000 subcu q.8 hourly for deep vein thrombosis prophylaxis. [facility] /[id number]
[2017-04-21] MEDS: Levofloxacin/Dextrose 5%-Water 750 MG in Premix Bag 1 BAG IV SCH (13:39)
[2017-04-21] MEDS: Sodium Chloride 0.9% 10 ML Syringe FLUSH PRN (21:27)
[2017-04-22] MEDS: Albuterol/Ipratropium 3.0-0.5 MG/3 ML Neb Soln NEB SCH ×4 (00:27→18:00)
[2017-04-22] MEDS: Sodium Chloride 0.9% 10 ML Syringe FLUSH PRN ×2 (02:51→19:13)
[2017-04-22] MEDS: methylPREDNISolone Sodium Succinate 40 MG/1 ML SDV IVPUSH SCH ×3 (02:51→19:13)
[2017-04-22] MEDS: Pantoprazole 40 MG Tab.CR PO SCH (05:40)
[2017-04-22] MEDS: Heparin Sodium 5,000 Units/ML Vial SUBCUT SCH ×3 (05:40→21:24)
[2017-04-22] MEDS: Budesonide 0.5 MG/2 ML Neb Susp NEB SCH ×2 (07:23→18:00)
[2017-04-22] MEDS: Fluticasone Propionate Nasal Spray 16 GM Bottle NASBOTH SCH (08:27)
[2017-04-22] MEDS: Clopidogrel 75 MG Tab PO SCH (08:27)
[2017-04-22] MEDS: Insulin Aspart 100 Units/ML 3 ML Pen SUBCUT SCH ×4 (08:28→21:25)
--- NOTE | 2017-04-22 09:46 | PN ---
DATE: 04/22/2017 SUBJECTIVE: The patient is doing well this morning. He had a good night sleep, and he still has some coughing spells but denies any chest pain or shortness of breath, abdominal pain, or any other complaints. OBJECTIVE: Vital Signs: Blood pressure is 122/67, pulse of 95, respirations of 20, temperature of 97.8, and saturation is 97% on room air. Heart: Regular rate and rhythm. Normal S1 and S2. No gallops. No rubs. Lungs: Diminished breath sounds on both bases but no significant crackles. No wheezing. Abdomen: Soft, nontender. Bowel sounds positive. Extremities: Negative for any significant pedal edema. No calf tenderness. MEDICATIONS: Reviewed. PLAN: We will continue with IV Levaquin and also continue the IV Solu-Medrol and the rest of his management; and if he continues to do well, we will try again to change Solu-Medrol to oral prednisone. [facility] /[id number]
[2017-04-22] MEDS: Benzonatate 100 MG Cap PO PRN ×2 (11:57→23:37)
[2017-04-22] MEDS: Levofloxacin/Dextrose 5%-Water 750 MG in Premix Bag 1 BAG IV SCH (12:00)
[2017-04-22] MEDS: Bisacodyl 5 MG Tab PO PRN (22:11)
[2017-04-23] MEDS: Albuterol/Ipratropium 3.0-0.5 MG/3 ML Neb Soln NEB SCH ×4 (00:49→17:39)
[2017-04-23] MEDS: methylPREDNISolone Sodium Succinate 40 MG/1 ML SDV IVPUSH SCH (02:54)
[2017-04-23] MEDS: Sodium Chloride 0.9% 10 ML Syringe FLUSH PRN ×2 (02:55→21:17)
[2017-04-23] MEDS: Pantoprazole 40 MG Tab.CR PO SCH (05:48)
[2017-04-23] MEDS: Heparin Sodium 5,000 Units/ML Vial SUBCUT SCH ×3 (05:48→21:15)
[2017-04-23] MEDS: Budesonide 0.5 MG/2 ML Neb Susp NEB SCH ×2 (08:00→17:39)
[2017-04-23] MEDS: Clopidogrel 75 MG Tab PO SCH (08:18)
[2017-04-23] MEDS: Benzonatate 100 MG Cap PO PRN ×2 (08:18→17:46)
[2017-04-23] MEDS: Fluticasone Propionate Nasal Spray 16 GM Bottle NASBOTH SCH (08:20)
[2017-04-23] MEDS: Insulin Aspart 100 Units/ML 3 ML Pen SUBCUT SCH ×4 (08:21→21:12)
[2017-04-23] MEDS: predniSONE 20 MG Tab PO SCH (09:20)
[2017-04-23] MEDS: Levofloxacin/Dextrose 5%-Water 750 MG in Premix Bag 1 BAG IV SCH (12:05)
[2017-04-23] MEDS: Bisacodyl 5 MG Tab PO PRN (21:34)
[2017-04-24] MEDS: Benzonatate 100 MG Cap PO PRN ×2 (01:02→10:00)
[2017-04-24] MEDS: Albuterol/Ipratropium 3.0-0.5 MG/3 ML Neb Soln NEB SCH ×3 (01:02→13:44)
[2017-04-24] MEDS: Pantoprazole 40 MG Tab.CR PO SCH (06:04)
[2017-04-24] MEDS: Heparin Sodium 5,000 Units/ML Vial SUBCUT SCH ×2 (06:05→13:34)
[2017-04-24] MEDS: Budesonide 0.5 MG/2 ML Neb Susp NEB SCH (07:16)
--- NOTE | 2017-04-24 07:17 | PN ---
DATE: 04/23/2017 SUBJECTIVE: The patient had a good night sleep. He continues to do well and the patient denies any chest pain or any worsening of shortness of breath. Denies any abdominal pain or any other complaints. OBJECTIVE: Vital Signs: Blood pressure is 124/80, pulse of 93, respiration of 20, and saturation is 95% on room air. Heart: Regular rate and rhythm. Normal S1 and S2. No gallops. No rubs. Lungs: Diminished breath sounds on both bases, but no significant crackles. No wheezing. Abdomen: Soft and nontender. Bowel sounds positive. Extremities: Negative for any significant pedal edema. No calf tenderness. MEDICATIONS: Reviewed. PLAN: We will continue with his present management. I am going to discontinue the Solu-Medrol and we will try to change him to oral prednisone and we will see how he does. [facility] /[id number]
[2017-04-24] MEDS ORDERED: predniSONE 20 MG Tab PO SCH (08:00)
[2017-04-24] MEDS: Insulin Aspart 100 Units/ML 3 ML Pen SUBCUT SCH ×2 (08:21→12:30)
[2017-04-24] MEDS: predniSONE 20 MG Tab PO SCH (09:54)
[2017-04-24] MEDS: Clopidogrel 75 MG Tab PO SCH (09:54)
[2017-04-24] MEDS: Fluticasone Propionate Nasal Spray 16 GM Bottle NASBOTH SCH (09:55)
--- NOTE | 2017-04-24 11:25 | CR ---
Clinical history: 81-year-old hypertensive, diabetic male reported on 18 Apr 2017 to have "right low er lobe pneumonia". Follow-up please. Interpretation: Reproducible dense posterior segment right lower lobe pneumonic like consolidation ( aspiration?) but relative interval clearing i.e. improvement since 18 Apr 2017 exam. Chronic hypertrophic arthritic changes spine and blunting the left costophrenic sulcus. Normal cardiac silhouette without cephalization of flow, new signs of alveolar edema or dependent pl eural fluid accumulation. No new lung mass, hilar lymphadenopathy or other focal lobar consolidation. Asymmetric soft tissue mass upper back, on the right, partially obscuring the right lung apex.
[2017-04-24] MEDS: Levofloxacin/Dextrose 5%-Water 750 MG in Premix Bag 1 BAG IV SCH (13:27)
[2017-04-24 15:32] VITALS: BP 116/75
--- NOTE | 2017-04-25 22:24 | PCM.DCSUM1 ---
[id number] of increasing shortness of breath associated with cough in the last one week. He has a history of COPD and rarely he uses his oxygen however with a recent problem, he is needing to use the oxygen. He also has a past medical history of coronary artery disease. - Discharge Data Discharge Date: 04/24/17 Discharge Disposition: Home, Self-Care 01 Condition: Good - Discharge Diagnosis/Problem(s) (1) Pneumonia SNOMED Code(s): 301170058 ICD Code: J18.9 - PNEUMONIA, UNSPECIFIED ORGANISM Status: Acute (2) Acute exacerbation of chronic obstructive airways disease SNOMED Code(s): 747311476 ICD Code: J44.1 - CHRONIC OBSTRUCTIVE PULMONARY DISEASE W (ACUTE) EXACERBATION Status: Acute - Patient Summary/Data Consults: Consultations 04/20/17 13:32 PT Evaluation and Treatment [CONS] Routine 04/20/17 13:33 OT Evaluation and Treatment [CONS] Routine Hospital Course: patient was admitted in medical surgical bed. Chest x-ray showed right lower lobe pneumonia. given his history of coronary artery disease, troponin was checked and this was normal.He was started on Levaquin and because of the exacerbation of the COPDfrom the pneumonia, he was also given a loading dose of Solu-Medrol. This was followed by methylprednisolone 40 mg every 8 hours which was eventually tapered down to a p.o. prednisone. blood cultures unrevealing. Patient slowly gradually started to feel better. On the day of discharge, he reports that he feels better, and is ready to go home.he was eventually tapered off his oxygen.tolerating diet and ambulating well. - Patient Instructions Diet: Heart Healthy Diet Activity: As Tolerated Driving: Do Not Drive Showering/Bathing: May Shower Notify Provider of: Fever Other/Special Instructions: Follow up with primary care provider within one week from discharge. continue and finish antibiotics and steroids. monitor for adverse reactions from the medications. continue with flutter valve and incentive spirometry. will have repeat blood work on the morning of follow up. to come back to the emergency if with emergent health concerns. - Discharge Plan Prescriptions/Med Rec: Benzonatate [Tessalon Perles] 100 mg PO TID PRN 7 Days PRN Reason: Cough Levofloxacin [Levaquin] 750 mg PO DAILY 4 Days Methylprednisolone [IJD: Methylprednisolone] 4 mg PO DAILY #21 tab Home Medications: Home Meds Pantoprazole [ProTONIX] 40 mg PO DAILY 09/15/15 [History] Albuterol/Ipratropium [DuoNeb 3.0-0.5 MG/3 ML] 3 ml NEB TID #90 neb 07/23/16 [Rx ] Budesonide [Pulmicort] 0.5 mg NEB BIDRT #60 neb 07/23/16 [Rx] Albuterol [Proventil Neb Soln] 2.5 mg NEB QID PRN 04/18/17 [History] Clopidogrel [Plavix] 75 mg PO DAILY 04/18/17 [History] Docusate Sodium [Colace] 100 mg PO DAILY PRN 04/18/17 [History] Fluticasone Propionate [Flonase] 1 spray NASBOTH DAILY 04/18/17 [History] Ranitidine HCl [Zantac] 150 mg PO BID 04/18/17 [History] Benzonatate [Tessalon Perles] 100 mg PO TID PRN 7 Days 04/24/17 [Rx] Levofloxacin [Levaquin] 750 mg PO DAILY 4 Days 04/24/17 [Rx] Methylprednisolone [IJD: Methylprednisolone] 4 mg PO DAILY #21 tab 04/24/17 [Rx] Patient Handouts: Chronic Obstructive Pulmonary Disease Exacerbation, Easy-to- Read, Levofloxacin tablets, Methylprednisolone tablets, Community-Acquired Pneumonia, Adult, Benzonatate capsules Referrals: PCP,Unobtain [Primary Care Provider] - - Discharge Summary/Plan Comment DC Time >30 min.: No Discharge Summary/Plan Comment: followup in the clinic within 5 days from discharge with repeat blood work. Continue and complete antibiotics. Monitor for intolerance from antibiotic use. To come back to the emergency room if with emergent health concerns. - General Info Date of Service: 04/24/17 Subjective Update: significantly feels better today and is ready to go home. - Patient Data Vitals - Most Recent: Last Vital Signs Temp 37.1 C 04/24/17 15:00 Pulse 106 H 04/24/17 15:00 Resp 20 04/24/17 15:00 BP 116/75 04/24/17 15:00 Pulse Ox 96 04/24/17 15:00 Weight - Most Recent: 72.303 kg Med Orders - Current: Current Medications Discontinued Medications Acetaminophen (Tylenol) 650 mg PO Q4H PRN PRN Reason: Pain (Mild 1-3)/fever Albuterol (Proventil Neb Soln) 2.5 mg NEB ONETIME ONE Stop: 04/18/17 10:37 Last Admin: 04/18/17 14:32 Dose: Not Given Albuterol (Proventil Neb Soln) 5 mg NEB ONETIME ONE Stop: 04/18/17 10:49 Last Admin: 04/18/17 10:50 Dose: 5 mg Albuterol (Proventil Neb Soln) 2.5 mg NEB Q4HRRT PRN PRN Reason: Shortness of Breath Last Admin: 04/22/17 15:24 Dose: 2.5 mg Albuterol/Ipratropium (Duoneb 3.0-0.5 Mg/3 Ml) Confirm Administered Dose 3 ml .ROUTE .STK-MED ONE Stop: 04/18/17 10:41 Last Admin: 04/18/17 10:49 Dose: Not Given Albuterol/Ipratropium (Duoneb 3.0-0.5 Mg/3 Ml) 3 ml NEB ONETIME ONE Stop: 04/18/17 10:48 Last Admin: 04/18/17 10:49 Dose: 3 ml Albuterol/Ipratropium (Duoneb 3.0-0.5 Mg/3 Ml) 3 ml NEB TIDRT [facility] Last Admin: 04/21/17 07:20 Dose: 3 ml Albuterol/Ipratropium (Duoneb 3.0-0.5 Mg/3 Ml) 3 ml NEB Q6HRRT [facility] Last Admin: 04/24/17 13:44 Dose: 3 ml Benzonatate (Tessalon Perles) 100 mg PO TID PRN PRN Reason: Cough Last Admin: 04/24/17 10:00 Dose: 100 mg Bisacodyl (Dulcolax) 10 mg RECTAL DAILY PRN PRN Reason: constipation Bisacodyl (Dulcolax) 5 mg PO BID PRN PRN Reason: Constipation Last Admin: 04/23/17 21:34 Dose: 5 mg Budesonide (Pulmicort) 0.5 mg NEB BIDRT [facility] Last Admin: 04/24/17 07:16 Dose: 0.5 mg Clopidogrel Bisulfate (Plavix) 75 mg PO DAILY [facility] Last Admin: 04/24/17 09:54 Dose: 75 mg Docusate Sodium (Colace) 100 mg PO BID PRN PRN Reason: Constipation Last Admin: 04/20/17 21:03 Dose: 100 mg Fluticasone Propionate (Flonase) 0 gm NASBOTH DAILY [facility] Last Admin: 04/24/17 09:55 Dose: 1 spray Heparin Sodium (Porcine) (Heparin Sodium) 5,000 units SUBCUT Q8HR [facility] Last Admin: 04/24/17 13:34 Dose: 5,000 units Sodium Chloride (Normal Saline) 500 mls @ 999 mls/hr IV .BOLUS [facility] Last Admin: 04/18/17 11:00 Dose: 999 mls/hr Sodium Chloride (Normal Saline) 1,000 mls @ 125 mls/hr IV ASDIRECTED [facility] Last Admin: 04/18/17 11:30 Dose: 125 mls/hr Levofloxacin/Dextrose 750 mg/ (Premix) 150 mls @ 100 mls/hr IV ONETIME ONE Stop: 04/18/17 14:24 Last Admin: 04/18/17 13:04 Dose: 100 mls/hr Levofloxacin/Dextrose 750 mg/ (Premix) 150 mls @ 100 mls/hr IV Q24H [facility] Last Admin: 04/24/17 13:27 Dose: 100 mls/hr Insulin Aspart (Novolog) 0 unit SUBCUT TIDAC [facility] PRN Reason: Protocol Last Admin: 04/18/17 17:14 Dose: 6 units Insulin Aspart (Novolog) 0 unit SUBCUT QIDACANDBED [facility] PRN Reason: Protocol Last Admin: 04/24/17 12:30 Dose: 4 units Methylprednisolone Sodium Succinate (Solu-Medrol) 125 mg IVPUSH ONETIME ONE Stop: 04/18/17 10:37 Last Admin: 04/18/17 11:30 Dose: 125 mg Methylprednisolone Sodium Succinate (Solu-Medrol) 40 mg IVPUSH Q8HR [facility] Last Admin: 04/20/17 05:48 Dose: 40 mg Methylprednisolone Sodium Succinate (Solu-Medrol) 40 mg IVPUSH Q8H [facility] Last Admin: 04/23/17 02:54 Dose: 40 mg Pantoprazole Sodium (Protonix) 40 mg PO ACBRK [facility] Last Admin: 04/24/17 06:04 Dose: 40 mg Prednisone (Prednisone) 20 mg PO WITHBREAKFAST TERESA Last Admin: 04/21/17 08:39 Dose: 20 mg Prednisone (Prednisone) 40 mg PO WITHBREAKFAST TERESA Prednisone (Prednisone) 40 mg PO WITHBREAKFAST TERESA Last Admin: 04/24/17 09:54 Dose: 40 mg Sodium Chloride (Saline Flush) 10 ml FLUSH ASDIRECTED PRN PRN Reason: Keep Vein Open Last Admin: 04/23/17 21:17 Dose: 10 ml Sodium Chloride (Saline Flush) 10 ml FLUSH ASDIRECTED PRN PRN Reason: Keep Vein Open Zolpidem Tartrate (Ambien) 5 mg PO BEDTIME PRN PRN Reason: Sleep - Exam General: Reports: alert, oriented Lungs: Reports: Normal respiratory effort Cardiovascular: Reports: Regular Rate, Regular Rhythm Abdomen: Reports: bowel sounds present, soft, no tenderness Extremities: Reports: no edema *Q Meaningful Use (DIS) - VTE *Q VTE Criteria *Q: - Stroke *Q Stroke Criteria *Q: - AMI *Q AMI Criteria *Q:
== END 2017-04-24 16:05 | disposition home or self-care (01) | DRG 190 ==
LOC: DL.ED 10:54 → DL.MS 13:30
PROVIDERS: ADMIT Internal Medicine; ATTEND Internal Medicine
DX: J44.0 Chronic obstructive pulmonary disease with (acute) lower respiratory infection (principal); J18.9 Pneumonia, unspecified organism; J18.1 Lobar pneumonia, unspecified organism; E87.1 Hypo-osmolality and hyponatremia; D72.825 Bandemia; J44.1 Chronic obstructive pulmonary disease with (acute) exacerbation; K21.9 Gastro-esophageal reflux disease without esophagitis; I25.10 Atherosclerotic heart disease of native coronary artery without angina pectoris; I10 Essential (primary) hypertension; E11.40 Type 2 diabetes mellitus with diabetic neuropathy, unspecified; E11.65 Type 2 diabetes mellitus with hyperglycemia; Z88.0 Allergy status to penicillin; Z88.8 Allergy status to other drugs, medicaments and biological substances; Z79.899 Other long term (current) drug therapy
CPT/HCPCS: 36415; 71010; 80053; 82550; 82553; 83605; 83880; 84484; 85025; 87040 ×2; 87070; 87205; 94640; 94762; 96361; 96365; 96375; 99284; 99285; J1956; J2930; J7030; J7040; J7620; 71020; 80048; 82962; 85027; 94010; 94060; 94667; 94668; 96366; 97162-GP; 97165-GO; A9270-GY; J1644; J1815-GY; J2920; J7050

== ENCOUNTER 2017-04-25 20:04 | Observation (INO) | payer MEDICARE, MEDICAID ==
--- NOTE | 2017-04-25 20:28 | EDM.PDOC ---
ED HPI GENERAL MEDICAL PROBLEM - General Chief Complaint: General Stated Complaint: AMBULANCA Time Seen by Provider: 04/25/17 20:20 Source of Information: Reports: Patient, EMS History Limitations: Reports: No Limitations - History of Present Illness INITIAL COMMENTS - FREE TEXT/NARRATIVE: This 81 yo male patient was brought to the ED by [facility] due to profound weakness and inability to get up. The patient was discharged from the Hospital yesterday after being admitted for pneumonia. The patient reports his family assisted him getting home yesterday. Once the patient was home, the patient got up to go to the bathroom, but did not have enough strength to get off the toilet. The patient reports he slid to the floor and stayed on the floor the past 24 hours. The patient's family came to check on the patient this evening and called the ambulance. Onset: Gradual Duration: Constant Location: Reports: Generalized Quality: Reports: Other Severity: Severe Improves with: Reports: None Worsens with: Reports: None Associated Symptoms: Reports: Weakness Lower Back Pain Score (Numeric/FACES): 10 - Related Data Allergies Allergy/AdvReac Type Severity Reaction Status Date / Time Penicillins Allergy Mild Rash Verified 04/18/17 13:42 roflumilast Allergy Mild Itching Verified 04/18/17 13:42 tiotropium bromide Allergy Unknown UNKNOWN Verified 04/18/17 13:42 [From Spiriva with HandiHaler] cortisone Allergy Hallucinati Verified 04/18/17 13:42 ons diltiazem Allergy Rash Verified 04/18/17 13:42 simvastatin Allergy Itching Verified 04/18/17 13:42 tiotropium Allergy Itching Verified 04/18/17 13:42 Home Meds: Home Meds Pantoprazole [ProTONIX] 40 mg PO DAILY 09/15/15 [History] Albuterol/Ipratropium [DuoNeb 3.0-0.5 MG/3 ML] 3 ml NEB TID #90 neb 07/23/16 [Rx ] Budesonide [Pulmicort] 0.5 mg NEB BIDRT #60 neb 07/23/16 [Rx] Albuterol [Proventil Neb Soln] 2.5 mg NEB QID PRN 04/18/17 [History] Clopidogrel [Plavix] 75 mg PO DAILY 04/18/17 [History] Docusate Sodium [Colace] 100 mg PO DAILY PRN 04/18/17 [History] Fluticasone Propionate [Flonase] 1 spray NASBOTH DAILY 04/18/17 [History] Ranitidine HCl [Zantac] 150 mg PO BID 04/18/17 [History] Benzonatate [Tessalon Perles] 100 mg PO TID PRN 7 Days 04/24/17 [Rx] Levofloxacin [Levaquin] 750 mg PO DAILY 4 Days 04/24/17 [Rx] Methylprednisolone [IJD: Methylprednisolone] 4 mg PO DAILY #21 tab 04/24/17 [Rx] Past Medical History Cardiovascular History: Reports: CAD, Hypertension Respiratory History: Reports: COPD Gastrointestinal History: Reports: Colon Polyp, Diverticulosis, GERD, Other ( See Below) Other Gastrointestinal History: angiodysplasiaof the colon Musculoskeletal History: Reports: Other (See Below) Other Musculoskeletal History: neuropathy, Dupuytren's contracture, spdondylosis Neurological History: Reports: Neuropathy, Diabetic, Other (See Below) Other Neuro History: carpal tunnel syndrome Endocrine/Metabolic History: Reports: Diabetes, Type II Hematologic History: Reports: Anemia Dermatologic History: Reports: Other (See Below) Other Dermatologic History: hump to right side of upper back. - Past Surgical History Cardiovascular Surgical History: Reports: None Respiratory Surgical History: Reports: None GI Surgical History: Reports: Colonoscopy Social & Family History - Family History Family Medical History: Noncontributory - Tobacco Use Smoking Status *Q: Never Smoker Years of Tobacco use: 20 Used Tobacco, but Quit: Yes Month Tobacco Last Used: 12 Second Hand Smoke Exposure: No - Caffeine Use Caffeine Use: Reports: None - Alcohol Use Days Per Week of Alcohol Use: 1 Number of Drinks Per Day: 1 Total Drinks Per Week: 1 - Recreational Drug Use Recreational Drug Use: No - Living Situation & Occupation Living situation: Reports: Single, , Alone Occupation: Retired ED ROS GENERAL - Review of Systems Review Of Systems: ROS reveals no pertinent complaints other than HPI. ED EXAM, GENERAL - Physical Exam Exam: See Below Exam Limited By: No Limitations General Appearance: Alert, WD/WN, Moderate Distress, Thin Eye Exam: Bilateral Eye: EOMI, Normal Inspection, PERRL Ears: Normal External Exam, Normal Canal, Hearing Grossly Normal, Normal TMs Nose: Normal Inspection, Normal Mucosa, No Blood Throat/Mouth: Normal Inspection, Normal Lips, Normal Teeth, Normal Gums, Normal Oropharynx, Normal Voice, No Airway Compromise Head: Atraumatic, Normocephalic Neck: Normal Inspection, Supple, Non-Tender, Full Range of Motion Respiratory/Chest: No Respiratory Distress, Lungs Clear, Normal Breath Sounds, No Accessory Muscle Use, Chest Non-Tender Cardiovascular: Normal Peripheral Pulses, Regular Rate, Rhythm, No Edema, No Gallop, No JVD, No Murmur, No Rub GI/Abdominal: Normal Bowel Sounds, Soft, Non-Tender, No Organomegaly, No Distention, No Abnormal Bruit, No Mass (Male) Exam: Deferred Rectal (Males) Exam: Deferred Back Exam: Normal Inspection, Full Range of Motion, NT Extremities: Other Neurological: Alert, Oriented, CN II-XII Intact, Normal Cognition. No: Normal Gait Psychiatric: Normal Affect, Normal Mood Skin Exam: Other (abrasion to right lateral elbow) Lymphatic: No Adenopathy Course - Vital Signs Last Recorded V/S: Last Vital Signs Temp 37.9 C 04/25/17 20:04 Pulse 114 H 04/25/17 20:04 Resp 18 04/25/17 20:04 BP 115/61 04/25/17 20:04 Pulse Ox 95 04/25/17 20:04 - Orders/Labs/Meds Orders: Active Orders 24 hr Category Date Time Status CULTURE BLOOD [BC] Stat Lab 04/25/17 21:05 Ordered CULTURE BLOOD [BC] Stat Lab 04/25/17 21:05 Ordered UA W/MICROSCOPIC [URIN] Stat Lab 04/25/17 21:05 Uncollected Blood Culture x2 Reflex Set [OM.PC] Stat Oth 04/25/17 21:05 Ordered Labs: Laboratory Tests 04/25/17 04/25/17 04/25/17 Range/Units 20:31 20:31 20:31 WBC 29.8 H* (5.0-10.0) 10^3/uL RBC 4.23 L (4.6-6.2) 10^6/uL Hgb 13.3 L (14.0-18.0) g/dL Hct 38.6 L (40.0-54.0) % MCV 91.3 (80-100) fL MCH 31.4 (27.0-34.0) pg MCHC 34.5 (33.0-35.0) g/dL Plt Count 519 H (150-450) 10^3/uL Neut % (Auto) 87.5 H (42.2-75.2) % Lymph % (Auto) 7.2 L (20.5-50.1) % [place] % (Auto) 5.1 (2-8) % Eos % (Auto) 0.1 L (1.0-3.0) % Baso % (Auto) 0.1 (0.0-1.0) % Add Manual Diff Yes Neutrophils % (Manual) 78 % Band Neutrophils % 8 % Lymphocytes % (Manual) 11 % Monocytes % (Manual) 3 % Sodium (135-145) mmol/L Potassium (3.6-5.0) mmol/L Chloride (101-111) mmol/L Carbon Dioxide (21.0-31.0) mmol/L Anion Gap BUN (7-18) mg/dL Creatinine (0.6-1.3) mg/dL Est Cr Clr Drug Dosing mL/min Estimated GFR (MDRD) BUN/Creatinine Ratio Glucose (74-105) mg/dL Lactic Acid 1.7 (0.5-2.2) mmol/L Calcium (8.4-10.2) mg/dl Magnesium 1.8 (1.8-2.5) mg/dL Total Bilirubin (0.2-1.0) mg/dL AST (10-42) IU/L ALT (10-60) IU/L Alkaline Phosphatase (42-121) IU/L Total Protein (6.7-8.2) g/dl Albumin (3.2-5.5) g/dl Globulin Albumin/Globulin Ratio // Range/Units 20:31 WBC (5.0-10.0) 10^3/uL RBC (4.6-6.2) 10^6/uL Hgb (14.0-18.0) g/dL Hct (40.0-54.0) % MCV (80-100) fL MCH (27.0-34.0) pg MCHC (33.0-35.0) g/dL Plt Count (150-450) 10^3/uL Neut % (Auto) (42.2-75.2) % Lymph % (Auto) (20.5-50.1) % [place] % (Auto) (2-8) % Eos % (Auto) (1.0-3.0) % Baso % (Auto) (0.0-1.0) % Add Manual Diff Neutrophils % (Manual) % Band Neutrophils % % Lymphocytes % (Manual) % Monocytes % (Manual) % Sodium 135 (135-145) mmol/L Potassium 4.0 (3.6-5.0) mmol/L Chloride 102 (101-111) mmol/L Carbon Dioxide 25.0 (21.0-31.0) mmol/L Anion Gap 12.0 BUN 26 H (7-18) mg/dL Creatinine 1.0 (0.6-1.3) mg/dL Est Cr Clr Drug Dosing 56.74 mL/min Estimated GFR (MDRD) > 60 BUN/Creatinine Ratio 26.00 Glucose 156 H (74-105) mg/dL Lactic Acid (0.5-2.2) mmol/L Calcium 8.3 L (8.4-10.2) mg/dl Magnesium (1.8-2.5) mg/dL Total Bilirubin 0.8 (0.2-1.0) mg/dL AST 23 (10-42) IU/L ALT 23 (10-60) IU/L Alkaline Phosphatase 59 (42-121) IU/L Total Protein 6.6 L (6.7-8.2) g/dl Albumin 2.6 L (3.2-5.5) g/dl Globulin 4.0 Albumin/Globulin Ratio 0.65 Departure - Departure Time of Disposition: 21:06 Disposition: Admitted As Inpatient 64 Condition: poor Clinical Impression: Weakness Pneumonia Qualifiers: Pneumonia type: due to unspecified organism Laterality: bilateral Lung location : lower lobe of lung Qualified Code(s): J18.9 - Pneumonia, unspecified organism - Discharge Information Care Plan Goals: Discussed the history, lab and x-ray results with Dr. Cortez. Dr. Cortez accepted the patient for continued evaluation and care as an inpatient at [facility]. - My Orders Last 24 Hours: My Active Orders 04/25/17 21:05 CULTURE BLOOD [BC] Stat CULTURE BLOOD [BC] Stat UA W/MICROSCOPIC [URIN] Stat Blood Culture x2 Reflex Set [OM.PC] Stat - Assessment/Plan Last 24 Hours: My Active Orders 04/25/17 21:05 CULTURE BLOOD [BC] Stat CULTURE BLOOD [BC] Stat UA W/MICROSCOPIC [URIN] Stat Blood Culture x2 Reflex Set [OM.PC] Stat
[2017-04-25 20:57] LABS: CHLORIDE,CL 102 mmol/L (101-111); SODIUM,NA 135 mmol/L (135-145)
--- NOTE | 2017-04-25 22:36 | PCM.HP ---
[id number] Illness Initial Comments - Free Text/Narative: patient is an 81-year-old male was admitted because of generalized weakness. Patient was recently admitted because of right lower lobe pneumonia and was discharged on steroids and p.o. Levaquin. Left the hospital around 5 PM. Daughter brought him home. He reports that his daughter is turned on the air conditioning and his room felt chilly. He went to the bathroom to have a bowel movement however, is not able to stand himself up from the stool. he slowly lowered himself to the floor.He clearly denies falling. subsequent day, still not able to stand himself up, stayed on the floor. Around 7 PM on the day of admission, daughter found him and since they're not able to stand him up, called ambulance and brought to the emergency room. patient denies any shortness of breath, he actually reports his cough to be "tapering down". He denies any chest pain. Reports his stools are normal. No headache or dizziness. Lower Back Pain Score (Numeric/FACES): 10 - Related Data Allergies/Adverse Reactions: Allergies Allergy/AdvReac Type Severity Reaction Status Date / Time Penicillins Allergy Mild Rash Verified 06/06/17 21:46 roflumilast Allergy Mild Itching Verified 06/06/17 21:46 tiotropium bromide Allergy Unknown UNKNOWN Verified 06/06/17 21:46 [From Spiriva with HandiHaler] cortisone Allergy Hallucinati Verified 06/06/17 21:46 ons diltiazem Allergy Rash Verified 06/06/17 21:46 simvastatin Allergy Itching Verified 06/06/17 21:46 tiotropium Allergy Itching Verified 06/06/17 21:46 Home Medications: Home Meds Pantoprazole [ProTONIX] 40 mg PO DAILY 09/15/15 [History] Albuterol/Ipratropium [DuoNeb 3.0-0.5 MG/3 ML] 3 ml NEB TID #90 neb 07/23/16 [Rx ] Budesonide [Pulmicort] 0.5 mg NEB BIDRT #60 [facility] 07/23/16 [Rx] Clopidogrel [Plavix] 75 mg PO DAILY 04/18/17 [History] Docusate Sodium [Colace] 100 mg PO DAILY PRN 04/18/17 [History] Fluticasone Propionate [Flonase] 1 spray NASBOTH DAILY 04/18/17 [History] Ranitidine HCl [Zantac] 150 mg PO BID 04/18/17 [History] Benzonatate [Tessalon Perles] 100 mg PO TID PRN 7 Days 04/24/17 [Rx] Methylprednisolone [IJD: Methylprednisolone] 4 mg PO DAILY #21 tab 04/24/17 [Rx] Albuterol [IJD: Albuterol] 2.5 mg NEB QID PRN #0 nebule 04/27/17 [Rx] Latanoprost [Xalatan 0.005% Ophth Soln] 1 drop EYEBOTH BEDTIME 05/04/17 [History ] Meropenem [Merrem] 1 gm IV Q8H sdv 05/12/17 [Rx] Past Medical History Cardiovascular History: Reports: CAD, Hypertension Respiratory History: Reports: COPD Gastrointestinal History: Reports: Colon Polyp, Diverticulosis, GERD, Other ( See Below) Other Gastrointestinal History: angiodysplasiaof the colon Musculoskeletal History: Reports: Other (See Below) Other Musculoskeletal History: neuropathy, Dupuytren's contracture, spdondylosis Neurological History: Reports: Neuropathy, Diabetic, Other (See Below) Other Neuro History: carpal tunnel syndrome Endocrine/Metabolic History: Reports: Diabetes, Type II Hematologic History: Reports: Anemia Dermatologic History: Reports: Other (See Below) Other Dermatologic History: hump to right side of upper back. - Past Surgical History Cardiovascular Surgical History: Reports: None Respiratory Surgical History: Reports: None GI Surgical History: Reports: Colonoscopy Social & Family History - Family History Family Medical History: Noncontributory - Tobacco Use Smoking Status *Q: Never Smoker Years of Tobacco use: 20 Used Tobacco, but Quit: Yes Month Tobacco Last Used: 12 Second Hand Smoke Exposure: No - Caffeine Use Caffeine Use: Reports: None - Alcohol Use Days Per Week of Alcohol Use: 1 Number of Drinks Per Day: 1 Total Drinks Per Week: 1 - Recreational Drug Use Recreational Drug Use: No - Living Situation & Occupation Living situation: Reports: Single, , Alone Occupation: Retired H&P Review of Systems - Review of Systems: Review Of Systems: See Below General: Reports: Chills Pulmonary: Reports: No Symptoms, Cough (getting better from the recent admission.) Cardiovascular: Reports: No Symptoms Gastrointestinal: Reports: No Symptoms Exam - Exam Exam: See Below - Vital Signs Vital Signs: Last Vital Signs Temp 37.9 C 04/25/17 20:04 Pulse 114 H 04/25/17 20:04 Resp 18 04/25/17 20:04 BP 115/61 04/25/17 20:04 Pulse Ox 95 04/25/17 20:04 Weight: 70.942 kg - Exam Quality Assessment: Supplemental Oxygen General: Alert, Oriented Lungs: Normal Respiratory Effort, Crackles (on the right lower lobe) Cardiovascular: Regular Rate, Regular Rhythm Abdomen: Normal Bowel Sounds, Soft Extremities: Normal Inspection - Patient Data Result Diagrams: 04/27/17 05:55 04/27/17 05:55 Polo Results Last 24 hrs: Microbiology 04/25/17 21:24 Anaerobic Blood Culture - Final Blood - Venous - Lab Draw *Q Meaningful Use (ADM) - VTE *Q VTE Criteria *Q: - Stroke *Q Stroke Criteria *Q: - AMI *Q AMI Criteria *Q: Problem List Initiated/Reviewed/Updated: Yes Assessment/Plan Comment:: Generalized weakness - might still be related to the recent infection however with increase in leukocytosis, infectious workup ordered; chest x-ray didn't show any significant worsening from the recent chest x-ray done from her previous admission. - Follow up in the blood cultures done - repeat CBC the next day - IV fluids started Leukocytosis, likely related to underlying infection versus recent steroid use - Infectious work up as mentioned Recent pneumonia, right lower lobe - continue and finish p.o. antibiotics ( Levaquin) - Send sputum for culture and sensitivity COPD, stable - Denies shortness of breath, no wheezing on auscultation Continue albuterol and budesonide Hyperglycemia, patient has history of diabetes which is diet controlled Continue Glucochecks and NovoLog sliding-scale History of coronary artery disease - Patient denies any chest pain; continue Plavix DVT prophylaxis- Lovenox Code status: full
[2017-04-25] MEDS ORDERED: Benzonatate 100 MG Cap PO PRN (22:39)
[2017-04-25] MEDS ORDERED: Albuterol 0.083% 2.5 MG/3 ML Neb Soln NEB PRN (22:39)
[2017-04-25] MEDS ORDERED: Docusate Sodium 100 MG Cap PO PRN (22:39)
[2017-04-25] MEDS ORDERED: methylPREDNISolone 4 MG Tab 21 Tab/Dosepak PO SCH (22:45)
[2017-04-25] MEDS: Sodium Chloride 0.9% 1,000 ML IV SCH (23:10)
[2017-04-26] MEDS: Pantoprazole 40 MG Tab.CR PO SCH (05:33)
[2017-04-26] MEDS ORDERED: methylPREDNISolone 4 MG Tab 21 Tab/Dosepak PO SCH ×5 (06:00→21:00)
[2017-04-26] MEDS: Sodium Chloride 0.9% 1,000 ML IV SCH ×2 (09:24→21:15)
[2017-04-26] MEDS: Albuterol/Ipratropium 3.0-0.5 MG/3 ML Neb Soln NEB SCH ×3 (09:30→21:23)
[2017-04-26] MEDS: Budesonide 0.5 MG/2 ML Neb Susp NEB SCH ×2 (09:30→17:39)
[2017-04-26] MEDS ORDERED: Iopamidol 612 MG/ML 100 ML Bottle IVPUSH ONE (09:33)
[2017-04-26] MEDS: Levofloxacin 250 MG Tab PO SCH (09:35)
[2017-04-26] MEDS: Fluticasone Propionate Nasal Spray 16 GM Bottle NASBOTH SCH (09:35)
[2017-04-26] MEDS: Clopidogrel 75 MG Tab PO SCH (09:36)
[2017-04-26] MEDS: Enoxaparin 40 MG/0.4 ML Syringe SUBCUT SCH (09:36)
[2017-04-26] MEDS: Famotidine 20 MG Tab PO SCH ×2 (10:35→21:19)
[2017-04-26] MEDS ORDERED: Barium Sulfate w/v 1.3% Oral Susp 450 ML Bottle PO ONE (12:30)
[2017-04-26] MEDS ORDERED: Barium Sulfate w/v 2.1% Oral Susp 450 ML Bottle PO ONE ×2 (12:30→13:30)
--- NOTE | 2017-04-26 15:23 | CT ---
CLINICAL HISTORY: 81-year-old hospitalized 156 pound hypertensive and diabetic male with leukocytosi s. Etiology? Previous appendectomy and colon surgery". SCAN TECHNIQUE: Volume acquisition of data from the chest, abdomen and pelvis obtained after oral in gestion 2 bottles Redicat barium and during the intravenous administration 100 cc nonionic Isovue co ntrast while the patient was lying supine on the Siemens multislice CT scanner [place], [place]. All data archived in the PACS system for storage, reformatting and study . INTERPRETATION: Abnormal. 1. Asymmetric mixed pneumonic like consolidation and atelectasis involving the entire right lower lo be. Ipsilateral large dependent right pleural effusion. Small inflammatory lymph nodes right hilum a nd middle mediastinum. Clinical aspiration? 2. Multilevel thoracic and lumbar disc disease with associated hypertrophic arthritic changes of the spine. 3. Normal cardiac silhouette. No pericardial effusion, cephalization of vascular flow or alveolar ed joann. Normal aorta. 4. Small cortical cysts, upper pole cortex right and renal pelvis left kidneys. No nephrolithiasis o r obstructive uropathy. 5. Diseased gallbladder (tiny dependently layering stones). No gallbladder wall inflammation or abno rmal ductal dilatation. 6. Total orthopedic hip prosthesis, on the right. Large fat density subcutaneous mass, high on the b ack. 7. Resection ascending right colon but no abdominal or pelvic mass lesion, inflammatory "dirty" darlene toneal fat, signs of retroperitoneal lymphadenopathy, mechanical bowel obstruction, ascites or free intraperitoneal air. CONCLUSION: Right hemicolectomy. Cholelithiasis. Renal cysts. Total right hip. Multilevel disc disea se/arthritis spine. *Extensive right lower lobe pneumonia with lymphadenopathy and effusion.
[2017-04-26] MEDS ORDERED: Furosemide 20 MG/2 ML VIAL IVPUSH ONE (17:27)
[2017-04-26] MEDS: Insulin Aspart 100 Units/ML 3 ML Pen SUBCUT SCH ×2 (17:38→21:28)
--- NOTE | 2017-04-26 18:12 | PCM.PN ---
- General Info Date of Service: 04/26/17 Subjective Update: patient has no new concerns today. Again he denies any shortness of breath or worsening of his cough. There has been no fever. He continues to cough productive of greenish phlegm. No chest pain. Tolerated his diet. still feels weak - Patient Data Vitals - most recent: Last Vital Signs Temp 36.8 C 04/26/17 15:00 Pulse 77 04/26/17 15:14 Resp 20 04/26/17 15:00 BP 113/63 04/26/17 15:00 Pulse Ox 96 04/26/17 15:00 Weight - most recent: 70.942 kg I&O - last 24 hours: Intake & Output 04/26/17 04/26/17 04/26/17 06:59 14:59 22:59 Intake Total 850 463 Balance 850 463 Lab Results last 24 hrs: Laboratory Results - last 24 hr 04/26/17 04/26/17 04/26/17 Range/Units 06:09 11:03 17:05 WBC 24.4 H (5.0-10.0) 10^3/uL RBC 3.62 L (4.6-6.2) 10^6/uL Hgb 11.3 L (14.0-18.0) g/dL Hct 33.5 L (40.0-54.0) % MCV 92.5 (80-100) fL MCH 31.2 (27.0-34.0) pg MCHC 33.7 (33.0-35.0) g/dL Plt Count 417 (150-450) 10^3/uL Neut % (Auto) 87.8 H (42.2-75.2) % Lymph % (Auto) 8.2 L (20.5-50.1) % [place] % (Auto) 3.9 (2-8) % Eos % (Auto) 0.1 L (1.0-3.0) % Baso % (Auto) 0.0 (0.0-1.0) % Add Manual Diff POC Glucose 272 H 162 H (83-110) mg/dl Med Orders - Current: Current Medications Albuterol (Proventil Neb Soln) 2.5 mg NEB QID PRN PRN Reason: Shortness of Breath Albuterol/Ipratropium (Duoneb 3.0-0.5 Mg/3 Ml) 3 ml NEB TIDRT [facility] Last Admin: 04/26/17 15:16 Dose: 3 ml Benzonatate (Tessalon Perles) 100 mg PO TID PRN PRN Reason: Cough Budesonide (Pulmicort) 0.5 mg NEB BIDRT [facility] Last Admin: 04/26/17 17:39 Dose: 0.5 mg Clopidogrel Bisulfate (Plavix) 75 mg PO DAILY [facility] Last Admin: 04/26/17 09:36 Dose: 75 mg Docusate Sodium (Colace) 100 mg PO DAILY PRN PRN Reason: Constipation Enoxaparin Sodium (Lovenox) 40 mg SUBCUT DAILY [facility] Last Admin: 04/26/17 09:36 Dose: 40 mg Famotidine (Pepcid) 20 mg PO BID [facility] Last Admin: 04/26/17 10:35 Dose: 20 mg Fluticasone Propionate (Flonase) 0 gm NASBOTH DAILY [facility] Last Admin: 04/26/17 09:35 Dose: 1 spray Sodium Chloride (Normal Saline) 1,000 mls @ 100 mls/hr IV ASDIRECTED [facility] Last Admin: 04/26/17 09:24 Dose: 100 mls/hr Insulin Aspart (Novolog) 0 unit SUBCUT ACBED [facility] PRN Reason: Protocol Last Admin: 04/26/17 17:38 Dose: 2 units Levofloxacin (Levaquin) 750 mg PO DAILY [facility] Last Admin: 04/26/17 09:35 Dose: 750 mg Methylprednisolone (Medrol) 4 mg PO PCLUNCH [facility] PRN Reason: Protocol Stop: 04/29/17 12:31 Last Admin: 04/26/17 12:59 Dose: 4 mg Methylprednisolone (Medrol) 4 mg PO PCDINNER [facility] PRN Reason: Protocol Stop: 04/28/17 18:31 Last Admin: 04/26/17 17:38 Dose: 4 mg Methylprednisolone (Medrol) 8 mg PO BEDTIME [facility] PRN Reason: Protocol Stop: 04/27/17 21:01 Methylprednisolone (Medrol) 4 mg PO BEDTIME [facility] PRN Reason: Protocol Stop: 04/30/17 21:01 Methylprednisolone (Medrol) 4 mg PO ACBRK [facility] PRN Reason: Protocol Stop: 05/01/17 06:01 Pantoprazole Sodium (Protonix) 40 mg PO ACBRK [facility] Last Admin: 04/26/17 05:33 Dose: 40 mg Discontinued Medications Barium Sulfate (Readi-Cat 2) 450 ml PO ONETIME ONE Stop: 04/26/17 13:31 Last Admin: 04/26/17 13:36 Dose: 450 ml Barium Sulfate (Readi-Cat 2) 450 ml PO ONETIME ONE Stop: 04/26/17 12:31 Last Admin: 04/26/17 12:59 Dose: 450 ml Furosemide (Lasix) 20 mg IVPUSH ONETIME ONE Stop: 04/26/17 17:28 Last Admin: 04/26/17 17:38 Dose: 20 mg Iopamidol (Isovue-300 (61%)) 100 ml IVPUSH ONETIME ONE Stop: 04/26/17 09:34 Last Admin: 04/26/17 09:33 Dose: 100 ml Methylpred[facility]isolone (Medrol) 8 [facility] PRN Reason: Protocol Stop: 04/26/17 06:01 Last Admin: 04/26/17 05:31 Dose: 8 mg - Exam Quality Assessment: supplemental oxygen General: alert, oriented Lungs: Normal respiratory effort, Crackles (right lower no) Cardiovascular: Regular Rate, Regular Rhythm Abdomen: bowel sounds present, soft, no tenderness Back Exam: No: Paraspinal Tenderness Extremities: no edema - Problem List Review Problem List Initiated/Reviewed/Updated: Yes - My Orders Last 24 Hours: My Active Orders 04/25/17 22:51 Flutter Valve Therapy [RT Chest Physiotherapy] [RC] ASDIRECTED RT Incentive Spirometry [RC] ASDIRECTED 04/25/17 22:53 PT Evaluation and Treatment [CONS] Routine 04/26/17 09:28 RT Aerosol Therapy [RC] ASDIRECTED 04/26/17 11:00 POC Glucose [Blood Glucose Check, Bedside] [RC] QIDACANDBED 04/26/17 12:30 methylPREDNISolone [Medrol] 4 mg PO PCLUNCH 04/26/17 16:26 CULTURE SPUTUM + SMEAR [RM] Routine 04/26/17 17:00 Insulin Aspart [NovoLOG] See Protocol SUBCUT ACBED 04/26/17 18:30 methylPREDNISolone [Medrol] 4 mg PO PCDINNER 04/26/17 21:00 methylPREDNISolone [Medrol] 8 mg PO BEDTIME 04/27/17 06:00 B-TYPE NATRIURETIC PEPTIDE,BNP [CHEM] Routine BASIC METABOLIC PANEL,BMP [CHEM] Routine CBC WITH AUTO DIFF [HEME] Routine methylPREDNISolone [Medrol] 4 mg PO ACBRK 04/28/17 21:00 methylPREDNISolone [Medrol] 4 mg PO BEDTIME - Plan Plan:: right lower lobe pneumonia, stable; patient's breathing is better although with persistent cough; leukocytosis is better -Continue Levaquin, send sputum for culture and sensitivity - With culture showing, unrevealing so far - continue with incentive spirometry and flutter valve - Continue oxygen supplementation leukocytosis, better - Scheduled for a CAT scan of the chest abdomen pelvis - No signs of fever, monitor CBC Hyperglycemia on a patient with history of diet-controlled - Patient has been on steroids, continue glucosechecksand to be covered by NovoLog sliding scale COPD, stable - Continue nebulizations, incentive spirometry, flutter - continue with the budesonide history of coronary artery disease - Chest pain-free, on Plavix DVT prophylaxis with Lovenox Generalized weakness - PT evaluation
[2017-04-27] MEDS ORDERED: methylPREDNISolone 4 MG Tab 21 Tab/Dosepak PO SCH ×2 (06:00)
[2017-04-27] MEDS: Pantoprazole 40 MG Tab.CR PO SCH (06:27)
[2017-04-27 07:05] LABS: CHLORIDE,CL 106 mmol/L (101-111); SODIUM,NA 136 mmol/L (135-145)
[2017-04-27] MEDS: Albuterol/Ipratropium 3.0-0.5 MG/3 ML Neb Soln NEB SCH (07:18)
[2017-04-27] MEDS: Budesonide 0.5 MG/2 ML Neb Susp NEB SCH (07:19)
[2017-04-27] MEDS: Sodium Chloride 0.9% 1,000 ML IV SCH (07:41)
[2017-04-27] MEDS: Insulin Aspart 100 Units/ML 3 ML Pen SUBCUT SCH (08:31)
[2017-04-27] MEDS: Enoxaparin 40 MG/0.4 ML Syringe SUBCUT SCH (08:57)
[2017-04-27] MEDS: Fluticasone Propionate Nasal Spray 16 GM Bottle NASBOTH SCH (08:57)
[2017-04-27] MEDS: Famotidine 20 MG Tab PO SCH (08:58)
[2017-04-27] MEDS: Clopidogrel 75 MG Tab PO SCH (08:58)
[2017-04-27] MEDS: Levofloxacin 250 MG Tab PO SCH (09:03)
--- NOTE | 2017-04-27 09:53 | PCM.DCSUM1 ---
Discharge Summary - Hospital Course Free Text/Narrative:: the patient is an 81-year-old gentleman who was recently admitted with a pneumonia. The patient has a history of diet-controlled diabetes, COPD. During the previous acute care hospital stay was noted to have significant right lower lobe pneumonia. Was treated with IV antibiotics, treated for COPD exacerbation. The patient was discharged home. The patient was readmitted with weakness. Noted to have leukocytosis. CT showed continued right lower lobe infiltrate and some effusion. nevertheless the patient remained afebrile. Breathing remained stable. He continued to be weak. Plan to transfer to main campus medical center for further antibiotic therapy, treatment for COPD , physical and occupational therapy. - Discharge Data Discharge Date: 04/27/17 Discharge Disposition: DC/Tfer W/I Hosp To [place] [id number] Condition: Fair - Patient Summary/Data Consults: Consultations 04/25/17 22:53 PT Evaluation and Treatment [CONS] Routine - Patient Instructions Diet: Heart Healthy Diet Activity: As Tolerated - Discharge Plan Home Medications: Home Meds Pantoprazole [ProTONIX] 40 mg PO DAILY 09/15/15 [History] Albuterol/Ipratropium [DuoNeb 3.0-0.5 MG/3 ML] 3 ml NEB TID #90 neb 07/23/16 [Rx ] Budesonide [Pulmicort] 0.5 mg NEB BIDRT #60 neb 07/23/16 [Rx] Clopidogrel [Plavix] 75 mg PO DAILY 04/18/17 [History] Docusate Sodium [Colace] 100 mg PO DAILY PRN 04/18/17 [History] Fluticasone Propionate [Flonase] 1 spray NASBOTH DAILY 04/18/17 [History] Ranitidine HCl [Zantac] 150 mg PO BID 04/18/17 [History] Benzonatate [Tessalon Perles] 100 mg PO TID PRN 7 Days 04/24/17 [Rx] Levofloxacin [Levaquin] 750 mg PO DAILY 4 Days 04/24/17 [Rx] Methylprednisolone [IJD: Methylprednisolone] 4 mg PO DAILY #21 tab 04/24/17 [Rx] Albuterol [IJD: Albuterol] 2.5 mg NEB QID PRN #0 nebule 04/27/17 [Rx] Insulin Aspart [NovoLOG] 0 unit SUBCUT ACBED pen 04/27/17 [Rx] methylPREDNISolone [Medrol] 4 mg PO ACBRK dospk 04/27/17 [Rx] methylPREDNISolone [Medrol] 4 mg PO BEDTIME dospk 04/27/17 [Rx] methylPREDNISolone [Medrol] 4 mg PO PCDINNER dospk 04/27/17 [Rx] methylPREDNISolone [Medrol] 4 mg PO PCLUNCH dospk 04/27/17 [Rx] methylPREDNISolone [Medrol] 8 mg PO BEDTIME [facility]k 04/27/17 [Rx] - Discharge Summary/Plan Comment DC Time >30 min.: No - General Info Date of Service: 04/27/17 Subjective Update: patient has no new concerns today. remained afebrile, some cough but no significant shortness of breath. - Review of Systems General: Reports: Weakness. Denies: Fever Pulmonary: Denies: shortness of breath Cardiovascular: Denies: Chest Pain Gastrointestinal: Denies: Abdominal pain - Patient Data Vitals - Most Recent: Last Vital Signs Temp 36.8 C 04/27/17 03:00 Pulse 69 04/27/17 07:20 Resp 20 04/27/17 03:00 BP 106/53 L 04/26/17 22:14 Pulse Ox 96 04/27/17 07:20 Weight - Most Recent: 70.942 kg I&O - Last 24 hours: Intake & Output 04/26/17 04/27/17 04/27/17 22:59 06:59 14:59 Intake Total 7859 974 5531 Output Total 600 600 Balance 796 037 3363 Lab Results - Last 24 hrs: Laboratory Results - last 24 hr 04/26/17 04/26/17 04/26/17 Range/Units 11:03 17:05 20:39 WBC (5.0-10.0) 10^3/uL RBC (4.6-6.2) 10^6/uL Hgb (14.0-18.0) g/dL Hct (40.0-54.0) % MCV (80-100) fL MCH (27.0-34.0) pg MCHC (33.0-35.0) g/dL Plt Count (150-450) 10^3/uL Neut % (Auto) (42.2-75.2) % Lymph % (Auto) (20.5-50.1) % [place] % (Auto) (2-8) % Eos % (Auto) (1.0-3.0) % Baso % (Auto) (0.0-1.0) % Add Manual Diff Neutrophils % (Manual) % Lymphocytes % (Manual) % Sodium (135-145) mmol/L Potassium (3.6-5.0) mmol/L Chloride (101-111) mmol/L Carbon Dioxide (21.0-31.0) mmol/L Anion Gap BUN (7-18) mg/dL Creatinine (0.6-1.3) mg/dL Est Cr Clr Drug Dosing mL/min Estimated GFR (MDRD) Glucose (74-105) mg/dL POC Glucose 272 H 162 H 279 H (83-110) mg/dl Calcium (8.4-10.2) mg/dl B-Natriuretic Peptide (0-100) pg/ml Urine Color (YELLOW) Urine Appearance (CLEAR) Urine pH (5.0-9.0) Ur Specific [place] (1.005-1.030) Urine Protein (NEGATIVE) Urine Glucose (UA) (NEGATIVE) Urine Ketones (NEGATIVE) Urine Occult Blood (NEGATIVE) Urine Nitrite (NEGATIVE) Urine Bilirubin (NEGATIVE) Urine Urobilinogen (0.2-1.0) mg/dL Ur Leukocyte Esterase (NEGATIVE) Urine RBC /HPF Urine WBC (0-5/HPF) /HPF Ur Epithelial Cells /HPF Urine Bacteria (0-FEW/HPF) /HPF 04/26/17 04/27/17 04/27/17 Range/Units 22:20 05:55 05:55 WBC 23.1 H (5.0-10.0) 10^3/uL RBC 3.38 L (4.6-6.2) 10^6/uL Hgb 10.6 L (14.0-18.0) g/dL Hct 31.2 L (40.0-54.0) % MCV 92.3 (80-100) fL MCH 31.4 (27.0-34.0) pg MCHC 34.0 (33.0-35.0) g/dL Plt Count 398 (150-450) 10^3/uL Neut % (Auto) 91.9 H (42.2-75.2) % Lymph % (Auto) 5.8 L (20.5-50.1) % [place] % (Auto) 2.3 (2-8) % Eos % (Auto) 0.0 L (1.0-3.0) % Baso % (Auto) 0.0 (0.0-1.0) % Add Manual Diff Yes Neutrophils % (Manual) 95 % Lymphocytes % (Manual) 5 % Sodium 136 (135-145) mmol/L Potassium 3.9 (3.6-5.0) mmol/L Chloride 106 (101-111) mmol/L Carbon Dioxide 24.0 (21.0-31.0) mmol/L Anion Gap 9.9 BUN 21 H (7-18) mg/dL Creatinine 0.8 (0.6-1.3) mg/dL Est Cr Clr Drug Dosing 70.20 mL/min Estimated GFR (MDRD) > 60 Glucose 177 H (74-105) mg/dL POC Glucose (83-110) mg/dl Calcium 7.4 L (8.4-10.2) mg/dl B-Natriuretic Peptide 79 (0-100) pg/ml Urine Color Light yellow (YELLOW) Urine Appearance Clear (CLEAR) Urine pH 5.5 (5.0-9.0) Ur Specific [place] <= 1.005 (1.005-1.030) Urine Protein Negative (NEGATIVE) Urine Glucose (UA) 100 H (NEGATIVE) Urine Ketones Negative (NEGATIVE) Urine Occult Blood Negative (NEGATIVE) Urine Nitrite Negative (NEGATIVE) Urine Bilirubin Negative (NEGATIVE) Urine Urobilinogen 0.2 (0.2-1.0) mg/dL Ur Leukocyte Esterase Negative (NEGATIVE) Urine RBC 0-5 /HPF Urine WBC 0-5 (0-5/HPF) /HPF Ur Epithelial Cells Few /HPF Urine Bacteria Few (0-FEW/HPF) /HPF 04/27/17 Range/Units 07:41 WBC (5.0-10.0) 10^3/uL RBC (4.6-6.2) 10^6/uL Hgb (14.0-18.0) g/dL Hct (40.0-54.0) % MCV (80-100) fL MCH (27.0-34.0) pg MCHC (33.0-35.0) g/dL Plt Count (150-450) 10^3/uL Neut % (Auto) (42.2-75.2) % Lymph % (Auto) (20.5-50.1) % [place] % (Auto) (2-8) % Eos % (Auto) (1.0-3.0) % Baso % (Auto) (0.0-1.0) % Add Manual Diff Neutrophils % (Manual) % Lymphocytes % (Manual) % Sodium (135-145) mmol/L Potassium (3.6-5.0) mmol/L Chloride (101-111) mmol/L Carbon Dioxide (21.0-31.0) mmol/L Anion Gap BUN (7-18) mg/dL Creatinine (0.6-1.3) mg/dL Est Cr Clr Drug Dosing mL/min Estimated GFR (MDRD) Glucose (74-105) mg/dL POC Glucose 185 H (83-110) mg/dl Calcium (8.4-10.2) mg/dl B-Natriuretic Peptide (0-100) pg/ml Urine Color (YELLOW) Urine Appearance (CLEAR) Urine pH (5.0-9.0) Ur Specific [place] (1.005-1.030) Urine Protein (NEGATIVE) Urine Glucose (UA) (NEGATIVE) Urine Ketones (NEGATIVE) Urine Occult Blood (NEGATIVE) Urine Nitrite (NEGATIVE) Urine Bilirubin (NEGATIVE) Urine Urobilinogen (0.2-1.0) mg/dL Ur Leukocyte Esterase (NEGATIVE) Urine RBC /HPF Urine WBC (0-5/HPF) /HPF Ur Epithelial Cells /HPF Urine Bacteria (0-FEW/HPF) /HPF SMITH Results - Last 24 hrs: Microbiology 04/26/17 22:52 Gram Stain - Final Sputum - Expectorated Med Orders - Current: Current Medications Albuterol (Proventil Neb Soln) 2.5 mg NEB QID PRN PRN Reason: Shortness of Breath Albuterol/Ipratropium (Duoneb 3.0-0.5 Mg/3 Ml) 3 ml NEB TIDRT [facility] Last Admin: 04/27/17 07:18 Dose: 3 ml Benzonatate (Tessalon Perles) 100 mg PO TID PRN PRN Reason: Cough Budesonide (Pulmicort) 0.5 mg NEB BIDRT [facility] Last Admin: 04/27/17 07:19 Dose: 0.5 mg Clopidogrel Bisulfate (Plavix) 75 mg PO DAILY [facility] Last Admin: 04/27/17 08:58 Dose: 75 mg Docusate Sodium (Colace) 100 mg PO DAILY PRN PRN Reason: Constipation Enoxaparin Sodium (Lovenox) 40 mg SUBCUT DAILY [facility] Last Admin: 04/27/17 08:57 Dose: 40 mg Famotidine (Pepcid) 20 mg PO BID [facility] Last Admin: 04/27/17 08:58 Dose: 20 mg Fluticasone Propionate (Flonase) 0 gm NASBOTH DAILY [facility] Last Admin: 04/27/17 08:57 Dose: 1 spray Sodium Chloride (Normal Saline) 1,000 mls @ 100 mls/hr IV ASDIRECTED [facility] Last Admin: 04/27/17 07:41 Dose: 100 mls/hr Insulin Aspart (Novolog) 0 unit SUBCUT ACBED [facility] PRN Reason: Protocol Last Admin: 04/27/17 08:31 Dose: 2 units Levofloxacin (Levaquin) 750 mg PO DAILY [facility] Last Admin: 04/27/17 09:03 Dose: 750 mg Methylprednisolone (Medrol) 4 mg PO PCLUNCH [facility] PRN Reason: Protocol Stop: 04/29/17 12:31 Last Admin: 04/26/17 12:59 Dose: 4 mg Methylprednisolone (Medrol) 4 mg PO PCDINNER [facility] PRN Reason: Protocol Stop: 04/28/17 18:31 Last Admin: 04/26/17 17:38 Dose: 4 mg Methylprednisolone (Medrol) 8 mg PO BEDTIME [facility] PRN Reason: Protocol Stop: 04/27/17 21:01 Last Admin: 04/26/17 21:20 Dose: 8 mg Methylprednisolone (Medrol) 4 mg PO BEDTIME [facility] PRN Reason: Protocol Stop: 04/30/17 21:01 Methylprednisolone (Medrol) 4 mg PO ACBRK [facility] PRN Reason: Protocol Stop: 05/01/17 06:01 Last Admin: 04/27/17 06:30 Dose: 1 tab Pantoprazole Sodium (Protonix) 40 mg PO ACBRK [facility] Last Admin: 04/27/17 06:27 Dose: 40 mg Discontinued Medications Barium Sulfate (Readi-Cat 2) 450 ml PO ONETIME ONE Stop: 04/26/17 13:31 Last Admin: 04/26/17 13:36 Dose: 450 ml Barium Sulfate (Readi-Cat 2) 450 ml PO ONETIME ONE Stop: 04/26/17 12:31 Last Admin: 04/26/17 12:59 Dose: 450 ml Furosemide (Lasix) 20 mg IVPUSH ONETIME ONE Stop: 04/26/17 17:28 Last Admin: 04/26/17 17:38 Dose: 20 mg Iopamidol (Isovue-300 (61%)) 100 ml IVPUSH ONETIME ONE Stop: 04/26/17 09:34 Last Admin: 04/26/17 09:33 Dose: 100 ml Methylprednisolone (Medrol) 8 mg PO ACK [facility] PRN Reason: Protocol Stop: 04/26/17 06:01 Last Admin: 04/26/17 05:31 Dose: 8 mg - Exam General: Reports: alert, oriented Neck: Reports: supple Lungs: Reports: Decreased breath sounds, Rhonchi (right side) Abdomen: Reports: bowel sounds present, soft, no tenderness Extremities: Reports: no edema Skin: Reports: warm, dry Neurological: Reports: no new focal deficit Psy/Mental Status: Reports: alert, normal affect, normal mood *Q Meaningful Use (DIS) - VTE *Q VTE Criteria *Q: - Stroke *Q Stroke Criteria *Q: - AMI *Q AMI Criteria *Q:
[2017-04-27 12:09] VITALS: BP 122/62
[2017-04-28] MEDS ORDERED: methylPREDNISolone 4 MG Tab 21 Tab/Dosepak PO SCH (21:00)
== END 2017-04-27 09:54 | disposition swing bed (61) ==
LOC: DL.ED 20:04 → UNDOADMOB 21:10 → INTOOBSV 21:10 → DL.MS 21:10
PROVIDERS: ADMIT Internal Medicine; ATTEND Internal Medicine
DX: J18.9 Pneumonia, unspecified organism (principal); R53.1 Weakness; D72.829 Elevated white blood cell count, unspecified; J44.1 Chronic obstructive pulmonary disease with (acute) exacerbation; Z79.4 Long term (current) use of insulin; Z79.899 Other long term (current) drug therapy; Z88.0 Allergy status to penicillin; Z88.8 Allergy status to other drugs, medicaments and biological substances; I25.10 Atherosclerotic heart disease of native coronary artery without angina pectoris; I10 Essential (primary) hypertension; K21.9 Gastro-esophageal reflux disease without esophagitis; E11.40 Type 2 diabetes mellitus with diabetic neuropathy, unspecified; D64.9 Anemia, unspecified; Z98.890 Other specified postprocedural states
CPT/HCPCS: 36415; 71010; 71260; 74177; 80048; 80053; 81001; 82550; 82962; 83605; 83735; 83880; 85025; 87040; 87070; 87205; 94640; 96361; 96372; 96374; 97161; 99285; A9270; G0378; J1650; J1815; J1940; J7030; Q9967; 99217; 99284

== ENCOUNTER 2017-04-27 09:54 | Inpatient (IN) | payer MEDICARE, MEDICAID ==
--- NOTE | 2017-04-27 10:43 | PCM.HP ---
H&P History of Present Illness - General Date of Service: 04/27/17 Admit Problem/Dx: Admission Diagnosis/Problem Admission Diagnosis/Problem Weakness Source of Information: Patient - History of Present Illness Initial Comments - Free Text/Narative: transfer from acute care to swing bed for weakness. Will need further treatment for COPD and pneumonia. - Related Data Allergies/Adverse Reactions: Allergies Allergy/AdvReac Type Severity Reaction Status Date / Time Penicillins Allergy Mild Rash Verified 04/27/17 10:14 roflumilast Allergy Mild Itching Verified 04/27/17 10:14 tiotropium bromide Allergy Unknown UNKNOWN Verified 04/27/17 10:14 [From Spiriva with HandiHaler] cortisone Allergy Hallucinati Verified 04/27/17 10:14 ons diltiazem Allergy Rash Verified 04/27/17 10:14 simvastatin Allergy Itching Verified 04/27/17 10:14 tiotropium Allergy Itching Verified 04/27/17 10:14 Home Medications: Home Meds Pantoprazole [ProTONIX] 40 mg PO DAILY 09/15/15 [History] Albuterol/Ipratropium [DuoNeb 3.0-0.5 MG/3 ML] 3 ml NEB TID #90 neb 07/23/16 [Rx ] Budesonide [Pulmicort] 0.5 mg NEB BIDRT #60 neb 07/23/16 [Rx] Clopidogrel [Plavix] 75 mg PO DAILY 04/18/17 [History] Docusate Sodium [Colace] 100 mg PO DAILY PRN 04/18/17 [History] Fluticasone Propionate [Flonase] 1 spray NASBOTH DAILY 04/18/17 [History] Ranitidine HCl [Zantac] 150 mg PO BID 04/18/17 [History] Benzonatate [Tessalon Perles] 100 mg PO TID PRN 7 Days 04/24/17 [Rx] Levofloxacin [Levaquin] 750 mg PO DAILY 4 Days 04/24/17 [Rx] Methylprednisolone [IJD: Methylprednisolone] 4 mg PO DAILY #21 tab 04/24/17 [Rx] Albuterol [IJD: Albuterol] 2.5 mg NEB QID PRN #0 nebule 04/27/17 [Rx] Insulin Aspart [NovoLOG] 0 unit SUBCUT ACBED pen 04/27/17 [Rx] methylPREDNISolone [Medrol] 4 mg PO ACBRK dospk 04/27/17 [Rx] methylPREDNISolone [Medrol] 4 mg PO BEDTIME dospk 04/27/17 [Rx] methylPREDNISolone [Medrol] 4 mg PO PCDINNER dospk 04/27/17 [Rx] methylPREDNISolone [Medrol] 4 mg PO PCLUNCH dospk 04/27/17 [Rx] methylPREDNISolone [Medrol] 8 mg PO BEDTIME dospk 04/27/17 [Rx] Past Medical History HEENT History: Reports: Hard of Hearing Cardiovascular History: Reports: CAD, Hypertension Respiratory History: Reports: COPD, Pneumonia, Recurrent Gastrointestinal History: Reports: Colon Polyp, Diverticulosis, GERD, Other ( See Below) Other Gastrointestinal History: angiodysplasiaof the colon Musculoskeletal History: Reports: Other (See Below) Other Musculoskeletal History: neuropathy, Dupuytren's contracture, spdondylosis Neurological History: Reports: Neuropathy, Diabetic, Other (See Below) Other Neuro History: carpal tunnel syndrome Endocrine/Metabolic History: Reports: Diabetes, Type II Hematologic History: Reports: Anemia Dermatologic History: Reports: Other (See Below) Other Dermatologic History: hump to right side of upper back. - Past Surgical History Cardiovascular Surgical History: Reports: None Respiratory Surgical History: Reports: None GI Surgical History: Reports: Colonoscopy Social & Family History - Family History Family Medical History: Noncontributory - Tobacco Use Smoking Status *Q: Former Smoker Years of Tobacco use: 20 Used Tobacco, but Quit: Yes Month Tobacco Last Used: unknown Second Hand Smoke Exposure: No - Caffeine Use Caffeine Use: Reports: None - Alcohol Use Days Per Week of Alcohol Use: 1 Number of Drinks Per Day: 1 Total Drinks Per Week: 1 - Recreational Drug Use Recreational Drug Use: No - Living Situation & Occupation Living situation: Reports: Single, , Alone Occupation: Retired H&P Review of Systems - Review of Systems: Review Of Systems: See Below General: Reports: Weakness. Denies: Fever Pulmonary: Denies: Shortness of Breath, Hemoptysis Cardiovascular: Denies: Chest Pain Genitourinary: Denies: Dysuria Exam - Exam Exam: See Below - Vital Signs Weight: 70.942 kg - Exam General: Alert Neck: Supple Lungs: Decreased Breath Sounds, Rhonchi (right-sided) Cardiovascular: Regular Rate, Regular Rhythm Abdomen: Normal Bowel Sounds, Soft Extremities: No: Edema *Q Meaningful Use (ADM) - VTE *Q VTE Criteria *Q: - Stroke *Q Stroke Criteria *Q: - AMI *Q AMI Criteria *Q: - Problem List (1) Chronic obstructive pulmonary disease SNOMED Code(s): 03630902 ICD Code: J44.9 - CHRONIC OBSTRUCTIVE PULMONARY DISEASE, UNSPECIFIED Status : Acute Current Visit: No (2) Pneumonia SNOMED Code(s): 880666481 ICD Code: J18.9 - PNEUMONIA, UNSPECIFIED ORGANISM Status: Acute Current Visit: No (3) Weakness SNOMED Code(s): 38679663 ICD Code: R53.1 - WEAKNESS Status: Acute Current Visit: No Problem List Initiated/Reviewed/Updated: Yes Orders Last 24hrs: Active Orders 24 hr Category Date Time Status Patient Status [ADT] Routine ADT 04/27/17 10:30 Ordered Antiembolic Devices [RC] PER UNIT ROUTINE Care 04/27/17 10:31 Ordered Oxygen Therapy [RC] PRN Care 04/27/17 10:30 Ordered Up With Assistance [RC] ASDIRECTED Care 04/27/17 10:30 Ordered VTE/DVT Education [RC] PER UNIT ROUTINE Care 04/27/17 10:30 Ordered Vital Signs [RC] QSHIFT Care 04/27/17 10:30 Ordered OT Evaluation and Treatment [CONS] Routine Cons 04/27/17 10:30 Ordered PT Evaluation and Treatment [CONS] Routine Cons 04/27/17 10:30 Ordered Consistent Carbohydrate Diet [DIET] Diet 04/27/17 Lunch Ordered Albuterol [Proventil Neb Soln] Med 04/27/17 10:25 Ordered 2.5 mg NEB QID PRN Albuterol/Ipratropium [DuoNeb 3.0-0.5 MG/3 ML] Med 04/27/17 14:00 Ordered 3 ml NEB TID Benzonatate [Tessalon Perles] Med 04/27/17 10:25 Ordered 100 mg PO TID PRN Budesonide [Pulmicort] Med 04/27/17 18:00 Ordered 0.5 mg NEB BIDRT Clopidogrel [Plavix] Med 04/28/17 09:00 Ordered 75 mg PO DAILY Docusate Sodium [Colace] Med 04/27/17 10:25 Ordered 100 mg PO DAILY PRN Famotidine [Pepcid] Med 04/27/17 21:00 Ordered 20 mg PO BID Fluticasone Propionate [Flonase] Med 04/28/17 09:00 Ordered 1 spray NASBOTH DAILY Heparin Sodium Med 04/27/17 14:00 Ordered 5,000 units SUBCUT Q8HR Insulin Aspart [NovoLOG] Med 04/27/17 10:30 Ordered 1 unit SUBCUT ACBED Levofloxacin Med 04/28/17 09:00 Ordered 750 mg PO DAILY Pantoprazole [ProTONIX] Med 04/28/17 09:00 Ordered 40 mg PO DAILY predniSONE Med 05/10/17 09:00 Ordered 10 mg PO DAILY predniSONE Med 05/04/17 08:00 Ordered 20 mg PO WITHBREAKFAST predniSONE Med 04/28/17 08:00 Ordered 40 mg PO WITHBREAKFAST Antiembolic Hose [OM.PC] Per Unit Routine Oth 04/27/17 10:31 Ordered Resuscitation Status Routine Resus Stat 04/27/17 10:30 Ordered Medication Orders Albuterol (Proventil Neb Soln) 2.5 mg NEB QID PRN PRN Reason: Shortness of Breath Albuterol/Ipratropium (Duoneb 3.0-0.5 Mg/3 Ml) 3 ml NEB TID [facility] Benzonatate (Tessalon Perles) 100 mg PO TID PRN PRN Reason: Cough Budesonide (Pulmicort) 0.5 mg NEB BIDRT [facility] Clopidogrel Bisulfate (Plavix) 75 mg PO DAILY [facility] Docusate Sodium (Colace) 100 mg PO DAILY PRN PRN Reason: Constipation Famotidine (Pepcid) 20 mg PO BID [facility] Fluticasone Propionate (Flonase) gm NASBOTH DAILY [facility] Heparin Sodium (Porcine) (Heparin Sodium) 5,000 units SUBCUT Q8HR [facility] Insulin Aspart (Novolog) 1 unit SUBCUT ACBED [facility] PRN Reason: Protocol Non-Formulary Medication (Levofloxacin) 750 mg PO DAILY [facility] Pantoprazole Sodium (Protonix) 40 mg PO DAILY [facility] Prednisone (Prednisone) 20 mg PO WITHBREAKFAST [facility] Stop: 05/09/17 08:01 Prednisone (Prednisone) 40 mg PO WITHBREAKFAST [facility] Stop: 05/03/17 08:01 Prednisone (Prednisone) 10 mg PO DAILY [facility] Stop: 05/15/17 09:01 Assessment/Plan Comment:: right lower lobe pneumonia, with bilateral r>l effusion patient's breathing is good -Continue Levaquin - at this point I do not think that the benefits of the right sided thoracentesis for possible parapneumonic effusion would outweigh its risks - continue with incentive spirometry and flutter valve - Continue oxygen supplementation Hyperglycemia on a patient with history of diet-controlled - Patient has been on steroids, continue glucose checks - use NovoLog sliding scale COPD, stable - Continue nebulizations with scheduled Pulmicort, Miky, p.r.n. DuoNeb - Taper systemic steroids history of coronary artery disease - Chest pain-free, on Plavix Generalized weakness - PT OT evaluation
[2017-04-27] MEDS: Insulin Aspart 100 Units/ML 3 ML Pen SUBCUT SCH ×3 (12:14→21:26)
[2017-04-27] MEDS: Albuterol/Ipratropium 3.0-0.5 MG/3 ML Neb Soln NEB SCH ×2 (15:57→20:40)
[2017-04-27] MEDS: Budesonide 0.5 MG/2 ML Neb Susp NEB SCH (18:03)
[2017-04-27] MEDS: Famotidine 20 MG Tab PO SCH (20:40)
[2017-04-27] MEDS: Docusate Sodium 100 MG Cap PO PRN (23:05)
[2017-04-28] MEDS: Heparin Sodium 5,000 Units/ML Vial SUBCUT SCH ×3 (05:29→21:57)
[2017-04-28] MEDS: Pantoprazole 40 MG Tab.CR PO SCH (05:29)
[2017-04-28] MEDS: Albuterol/Ipratropium 3.0-0.5 MG/3 ML Neb Soln NEB SCH ×3 (07:59→21:57)
[2017-04-28] MEDS: Budesonide 0.5 MG/2 ML Neb Susp NEB SCH ×2 (07:59→18:00)
[2017-04-28] MEDS ORDERED: predniSONE 20 MG Tab PO SCH (08:00)
[2017-04-28] MEDS: Insulin Aspart 100 Units/ML 3 ML Pen SUBCUT SCH ×4 (08:15→21:52)
[2017-04-28] MEDS: predniSONE 20 MG Tab PO SCH (08:16)
[2017-04-28] MEDS: Levofloxacin 250 MG Tab PO SCH (08:17)
[2017-04-28] MEDS: Famotidine 20 MG Tab PO SCH ×2 (08:17→21:57)
[2017-04-28] MEDS: Clopidogrel 75 MG Tab PO SCH (08:18)
[2017-04-28] MEDS: Fluticasone Propionate Nasal Spray 16 GM Bottle NASBOTH SCH (08:18)
[2017-04-28] MEDS: Albuterol 0.083% 2.5 MG/3 ML Neb Soln NEB PRN (17:58)
[2017-04-28] MEDS: Docusate Sodium 100 MG Cap PO PRN (21:57)
[2017-04-29] MEDS: Pantoprazole 40 MG Tab.CR PO SCH (06:31)
[2017-04-29] MEDS: Heparin Sodium 5,000 Units/ML Vial SUBCUT SCH ×3 (06:31→22:11)
[2017-04-29] MEDS: predniSONE 20 MG Tab PO SCH (08:48)
[2017-04-29] MEDS: Insulin Aspart 100 Units/ML 3 ML Pen SUBCUT SCH ×4 (08:49→22:09)
[2017-04-29] MEDS: Albuterol/Ipratropium 3.0-0.5 MG/3 ML Neb Soln NEB SCH ×3 (09:19→22:10)
[2017-04-29] MEDS: Budesonide 0.5 MG/2 ML Neb Susp NEB SCH ×3 (09:19→17:38)
[2017-04-29] MEDS: Clopidogrel 75 MG Tab PO SCH (10:32)
[2017-04-29] MEDS: Levofloxacin 250 MG Tab PO SCH (10:33)
[2017-04-29] MEDS: Famotidine 20 MG Tab PO SCH ×2 (10:34→22:11)
[2017-04-29] MEDS: Fluticasone Propionate Nasal Spray 16 GM Bottle NASBOTH SCH (10:35)
[2017-04-30] MEDS: Pantoprazole 40 MG Tab.CR PO SCH (05:54)
[2017-04-30] MEDS: Heparin Sodium 5,000 Units/ML Vial SUBCUT SCH ×3 (05:54→21:50)
[2017-04-30] MEDS: Albuterol/Ipratropium 3.0-0.5 MG/3 ML Neb Soln NEB SCH ×3 (07:15→21:52)
[2017-04-30] MEDS: Budesonide 0.5 MG/2 ML Neb Susp NEB SCH ×2 (07:16→17:26)
[2017-04-30] MEDS: Insulin Aspart 100 Units/ML 3 ML Pen SUBCUT SCH ×4 (07:59→21:55)
[2017-04-30] MEDS: Levofloxacin 250 MG Tab PO SCH (08:27)
[2017-04-30] MEDS: Clopidogrel 75 MG Tab PO SCH (08:27)
[2017-04-30] MEDS: predniSONE 20 MG Tab PO SCH (08:28)
[2017-04-30] MEDS: Famotidine 20 MG Tab PO SCH ×2 (08:28→21:48)
[2017-04-30] MEDS: Docusate Sodium 100 MG Cap **OWN MED PO SCH (08:29)
[2017-04-30] MEDS: Fluticasone Propionate Nasal Spray 16 GM Bottle NASBOTH SCH (08:29)
[2017-04-30] MEDS: Docusate Sodium 100 MG Cap **OWN MED PO PRN (22:42)
[2017-04-30] MEDS: Benzonatate 100 MG Cap PO PRN (22:44)
[2017-05-01] MEDS: Pantoprazole 40 MG Tab.CR PO SCH (06:21)
[2017-05-01] MEDS: Heparin Sodium 5,000 Units/ML Vial SUBCUT SCH ×3 (06:22→21:39)
[2017-05-01] MEDS: Albuterol/Ipratropium 3.0-0.5 MG/3 ML Neb Soln NEB SCH ×3 (06:23→21:39)
[2017-05-01] MEDS: Budesonide 0.5 MG/2 ML Neb Susp NEB SCH ×2 (06:32→15:15)
[2017-05-01] MEDS: Insulin Aspart 100 Units/ML 3 ML Pen SUBCUT SCH ×4 (08:47→21:38)
[2017-05-01] MEDS: Famotidine 20 MG Tab PO SCH ×2 (08:49→21:37)
[2017-05-01] MEDS: Levofloxacin 250 MG Tab PO SCH (08:49)
[2017-05-01] MEDS: Clopidogrel 75 MG Tab PO SCH (08:49)
[2017-05-01] MEDS: predniSONE 20 MG Tab PO SCH (08:49)
[2017-05-01] MEDS: Docusate Sodium 100 MG Cap **OWN MED PO SCH (08:51)
[2017-05-01] MEDS: Fluticasone Propionate Nasal Spray 16 GM Bottle NASBOTH SCH (08:52)
[2017-05-01] MEDS: Docusate Sodium 100 MG Cap **OWN MED PO PRN (21:48)
[2017-05-01] MEDS: Benzonatate 100 MG Cap PO PRN (21:52)
[2017-05-02] MEDS: Heparin Sodium 5,000 Units/ML Vial SUBCUT SCH ×3 (06:02→21:08)
[2017-05-02] MEDS: Pantoprazole 40 MG Tab.CR PO SCH (06:02)
[2017-05-02 07:06] LABS: CHLORIDE,CL 103 mmol/L (101-111); SODIUM,NA 138 mmol/L (135-145)
[2017-05-02] MEDS: Albuterol/Ipratropium 3.0-0.5 MG/3 ML Neb Soln NEB SCH ×3 (07:26→21:06)
[2017-05-02] MEDS: Budesonide 0.5 MG/2 ML Neb Susp NEB SCH ×2 (07:26→18:03)
[2017-05-02] MEDS: Famotidine 20 MG Tab PO SCH ×2 (08:40→21:03)
[2017-05-02] MEDS: Docusate Sodium 100 MG Cap **OWN MED PO SCH (08:40)
[2017-05-02] MEDS: predniSONE 20 MG Tab PO SCH (08:40)
[2017-05-02] MEDS: Clopidogrel 75 MG Tab PO SCH (08:41)
[2017-05-02] MEDS: Levofloxacin 250 MG Tab PO SCH (08:41)
[2017-05-02] MEDS: Fluticasone Propionate Nasal Spray 16 GM Bottle NASBOTH SCH (08:42)
[2017-05-02] MEDS: Insulin Aspart 100 Units/ML 3 ML Pen SUBCUT SCH ×4 (08:42→21:06)
--- NOTE | 2017-05-02 13:30 | CR ---
Clinical history: 81-year-old male with clinical "leukocytosis" and shortness of breath. CLINICAL HISTORY: Abnormal. 1. Asymmetric large soft tissue mass high in the back on the right (lipoma). 2. Chronic dense pneumonic like consolidation, anterior and posterior segments, right lower lobe pre sumably reflecting aspiration (similar appearance on upright AP chest of 25 April 2017). 3. Normal cardiac silhouette without alveolar edema or dependent effusion. 4. No new lung mass, hilar lymphadenopathy or focal lobar moderate consolidation in the left lung. 5. No pneumothorax.
[2017-05-02] MEDS: Benzonatate 100 MG Cap PO PRN (21:03)
[2017-05-02] MEDS: Docusate Sodium 100 MG Cap **OWN MED PO PRN (21:05)
[2017-05-03] MEDS: Pantoprazole 40 MG Tab.CR PO SCH (05:46)
[2017-05-03] MEDS: Heparin Sodium 5,000 Units/ML Vial SUBCUT SCH ×3 (05:47→21:34)
[2017-05-03] MEDS: Budesonide 0.5 MG/2 ML Neb Susp NEB SCH ×3 (07:11→17:17)
[2017-05-03] MEDS: Albuterol/Ipratropium 3.0-0.5 MG/3 ML Neb Soln NEB SCH ×3 (07:11→20:41)
[2017-05-03] MEDS: Insulin Aspart 100 Units/ML 3 ML Pen SUBCUT SCH ×4 (08:30→21:34)
[2017-05-03] MEDS: predniSONE 20 MG Tab PO SCH (08:53)
[2017-05-03] MEDS: Fluticasone Propionate Nasal Spray 16 GM Bottle NASBOTH SCH (08:54)
[2017-05-03] MEDS: Clopidogrel 75 MG Tab PO SCH (08:54)
[2017-05-03] MEDS: Famotidine 20 MG Tab PO SCH ×2 (08:54→20:41)
[2017-05-03] MEDS: Levofloxacin 250 MG Tab PO SCH (08:54)
[2017-05-03] MEDS: Docusate Sodium 100 MG Cap **OWN MED PO SCH (08:55)
--- NOTE | 2017-05-03 09:45 | PCM.PN ---
- General Info Date of Service: 05/03/17 Admission Dx/Problem (Free Text): Admission Diagnosis/Problem Admission Diagnosis/Problem Weakness Admitted after acute care for pneumonia. Subjective Update: Feeling well, has been working with physical therapy. Noted to have hypoxemia with activity. - Review of Systems General: Reports: Weakness Pulmonary: Reports: shortness of breath. Denies: cough, wheezing Cardiovascular: Denies: Chest Pain, Palpitations Gastrointestinal: Denies: Abdominal pain Genitourinary: Denies: dysuria Neurological: Denies: Confusion - Patient Data Vitals - most recent: Last Vital Signs Temp 36.9 C 05/02/17 21:00 Pulse 78 05/03/17 07:11 Resp 20 05/02/17 21:00 BP 109/55 L 05/02/17 21:00 Pulse Ox 96 05/02/17 22:00 Weight - most recent: 69.037 kg I&O - last 24 hours: Intake & Output 05/02/17 05/03/17 05/03/17 22:59 06:59 14:59 Intake Total 1190 75 Output Total 1075 600 Balance 115 -525 Lab Results last 24 hrs: Laboratory Results - last 24 hr 05/02/17 05/02/17 05/02/17 Range/Units 11:34 16:51 20:41 POC Glucose 289 H 279 H 333 H (83-110) mg/dl 05/03/17 Range/Units 07:41 POC Glucose 159 H (83-110) mg/dl Med Orders - Current: Current Medications Albuterol (Proventil Neb Soln) 2.5 mg NEB QIDRT PRN PRN Reason: Shortness of Breath Last Admin: 04/28/17 17:58 Dose: 2.5 mg Albuterol/Ipratropium (Duoneb 3.0-0.5 Mg/3 Ml) 3 ml NEB TIDRT TERESA Last Admin: 05/03/17 07:11 Dose: 3 ml Benzonatate (Tessalon Perles) 100 mg PO TID PRN PRN Reason: Cough Last Admin: 05/02/17 21:03 Dose: 100 mg Budesonide (Pulmicort) 0.5 mg NEB BIDRT [facility] Last Admin: 05/03/17 07:11 Dose: 0.5 mg Clopidogrel Bisulfate (Plavix) 75 mg PO DAILY [facility] Last Admin: 05/03/17 08:54 Dose: 75 mg Docusate Sodium (Colace) 100 mg PO DAILY [facility] Last Admin: 05/03/17 08:55 Dose: 100 mg Docusate Sodium (Colace) 100 mg PO DAILY PRN PRN Reason: Constipation Last Admin: 05/02/17 21:05 Dose: 100 mg Famotidine (Pepcid) 20 mg PO BID [facility] Last Admin: 05/03/17 08:54 Dose: 20 mg Fluticasone Propionate (Flonase) 0 gm NASBOTH DAILY [facility] Last Admin: 05/03/17 08:54 Dose: 1 spray Heparin Sodium (Porcine) (Heparin Sodium) 5,000 units SUBCUT Q8HR [facility] Last Admin: 05/03/17 05:47 Dose: 5,000 units Insulin Aspart (Novolog) 0 unit SUBCUT ACBED [facility] PRN Reason: Protocol Last Admin: 05/03/17 08:30 Dose: 1 units Levofloxacin (Levaquin) 750 mg PO DAILY [facility] Last Admin: 05/03/17 08:54 Dose: 750 mg Pantoprazole Sodium (Protonix) 40 mg PO ACBRK [facility] Last Admin: 05/03/17 05:46 Dose: 40 mg Prednisone (Prednisone) 20 mg PO WITHBREAKFAST [facility] Stop: 05/09/17 08:01 Prednisone (Prednisone) 10 mg PO DAILY [facility] Stop: 05/15/17 09:01 Senna/Docusate Sodium (Senna Plus) 1 tab PO DAILY [facility] Last Admin: 05/03/17 08:53 Dose: 1 tab Discontinued Medications Docusate Sodium (Colace) 100 mg PO DAILY PRN PRN Reason: Constipation Last Admin: 04/28/17 21:57 Dose: 100 mg Prednisone (Prednisone) 40 mg PO WITHBREAKFAST [facility] Prednisone (Prednisone) 40 mg PO WITHBREAKFAST [facility] Stop: 05/03/17 08:01 Last Admin: 05/03/17 08:53 Dose: 40 mg - Exam General: alert, oriented Neck: supple Lungs: Decreased breath sounds, Rhonchi (r base) Cardiovascular: Regular Rate, Regular Rhythm Abdomen: bowel sounds present, soft, no tenderness, no distension Extremities: no edema - Problem List & Annotations (1) Chronic obstructive pulmonary disease SNOMED Code(s): 23560296 Code(s): J44.9 - CHRONIC OBSTRUCTIVE PULMONARY DISEASE, UNSPECIFIED Status : Acute Current Visit: No (2) Pneumonia SNOMED Code(s): 036613338 Code(s): J18.9 - PNEUMONIA, UNSPECIFIED ORGANISM Status: Acute Current Visit: No (3) Weakness SNOMED Code(s): 18576144 Code(s): R53.1 - WEAKNESS Status: Acute Current Visit: No - Problem List Review Problem List Initiated/Reviewed/Updated: Yes - My Orders Last 24 Hours: My Active Orders 05/04/17 08:00 predniSONE 20 mg PO WITHBREAKFAST 05/10/17 09:00 predniSONE 10 mg PO DAILY - Plan Plan:: admitted with right lower lobe pneumonia, with bilateral r>l effusion on repeat CXR on 05/02 effusion resolved, still r. consolidation hypoxemia with activity still leukocytosis but afebrile -Continue Levaquin -leuocytosis might relate to steroids - taper - continue with incentive spirometry and flutter valve - Continue oxygen supplementation - repeat cbc and imaging in a few days - consider CT if consolidation is not resolving Hyperglycemia on a patient with history of diet-controlled - Patient has been on steroids, continue glucose checks - use NovoLog sliding scale COPD, stable - Continue nebulizations with scheduled Pulmicort, DuoNeb, p.r.n. DuoNeb - Taper systemic steroids history of coronary artery disease - Chest pain-free, on Plavix Generalized weakness - PT OT treatment
[2017-05-03] MEDS: Benzonatate 100 MG Cap PO PRN (22:22)
[2017-05-04] MEDS: Heparin Sodium 5,000 Units/ML Vial SUBCUT SCH ×3 (06:11→22:09)
[2017-05-04] MEDS: Pantoprazole 40 MG Tab.CR PO SCH (06:11)
[2017-05-04] MEDS: Albuterol/Ipratropium 3.0-0.5 MG/3 ML Neb Soln NEB SCH ×3 (07:11→20:59)
[2017-05-04] MEDS: Budesonide 0.5 MG/2 ML Neb Susp NEB SCH ×2 (07:11→18:25)
[2017-05-04] MEDS: Clopidogrel 75 MG Tab PO SCH (08:24)
[2017-05-04] MEDS: Levofloxacin 250 MG Tab PO SCH (08:24)
[2017-05-04] MEDS: Famotidine 20 MG Tab PO SCH ×2 (08:25→20:59)
[2017-05-04] MEDS: predniSONE 20 MG Tab PO SCH (08:25)
[2017-05-04] MEDS: Fluticasone Propionate Nasal Spray 16 GM Bottle NASBOTH SCH (08:26)
[2017-05-04] MEDS: Insulin Aspart 100 Units/ML 3 ML Pen SUBCUT SCH ×4 (08:27→21:06)
[2017-05-04] MEDS: Docusate Sodium 100 MG Cap **OWN MED PO SCH (20:59)
[2017-05-04] MEDS: LATANOPROST 0.005% EYEBOTH SCH (21:02)
[2017-05-04] MEDS: Benzonatate 100 MG Cap PO PRN (21:02)
[2017-05-05] MEDS: Pantoprazole 40 MG Tab.CR PO SCH (05:46)
[2017-05-05] MEDS: Heparin Sodium 5,000 Units/ML Vial SUBCUT SCH ×3 (05:46→22:03)
[2017-05-05] MEDS: Budesonide 0.5 MG/2 ML Neb Susp NEB SCH ×2 (07:12→17:17)
[2017-05-05] MEDS: Albuterol/Ipratropium 3.0-0.5 MG/3 ML Neb Soln NEB SCH ×3 (07:12→20:20)
[2017-05-05] MEDS: Insulin Aspart 100 Units/ML 3 ML Pen SUBCUT SCH ×4 (08:35→21:02)
[2017-05-05] MEDS: predniSONE 20 MG Tab PO SCH (08:37)
[2017-05-05] MEDS: Levofloxacin 250 MG Tab PO SCH (08:38)
[2017-05-05] MEDS: Fluticasone Propionate Nasal Spray 16 GM Bottle NASBOTH SCH (08:38)
[2017-05-05] MEDS: Famotidine 20 MG Tab PO SCH (08:39)
[2017-05-05] MEDS: Clopidogrel 75 MG Tab PO SCH (08:39)
[2017-05-05] MEDS: Fluconazole 100 MG Tab PO SCH (12:42)
--- NOTE | 2017-05-05 13:59 | PN ---
DATE: 05/05/2017 SUBJECTIVE: Mr. Jamil Cadet is an 81-year-old male with a medical history significant for hypertension, hyperlipidemia, chronic obstructive pulmonary airway disease, and history of coronary artery disease, was admitted to the hospital with complaints of pneumonia and got readmitted to the swing bed with complaints of increasing weakness and consistent pneumonia in the right lower lobe. For the last 24 hours, the patient continues to have mild shortness of breath aggravated on exertion, relieved with rest. He also complains of having some pain in the oral cavity, mostly on the left side. Denies any chest pains. No abdominal pain. No nausea. No vomiting. No diarrhea. The patient was noted to have low blood pressure earlier today. REVIEW OF SYSTEMS: Cardiovascular, respiratory, gastrointestinal, neurology, constitutional were all evaluated. PHYSICAL EXAMINATION: Vital signs: Temperature of 98.4, pulse of 89, blood pressure 108/54, respiratory rate 20, saturating at 94% on room air. General Appearance: The patient is well oriented to time, place, and person. Follows commands spontaneously. Cardiovascular System: S1 and S2 heard with normal intensity. No gallops. Respiratory: Clear to auscultation bilaterally. No wheeze. No crepitations. Abdomen: Soft. Bowel sounds positive. Nontender. No rigidity. Extremities: No edema in bilateral lower extremities. Neurology: No gross focal neurological deficits. LABORATORY DATA: No new labs ordered for today. The patient had leukocytosis with WBC of 20.4 dated 05/02/2017. MEDICATIONS: Reviewed. Continue with: 1. Albuterol nebulizer 4 times a day as needed. 2. DuoNeb 3 times a day. 3. Tessalon Perles 100 mg 3 times a day as needed. 4. Pulmicort 0.5 mg twice a day. 5. Plavix 75 mg daily. 6. Docusate sodium 100 mg as needed. 7. Pepcid 20 mg twice a day. 8. Diflucan 100 mg daily. 9. Heparin 5000 units subcu q.8 hourly. 10.Levaquin 750 mg daily. 11.Protonix 40 mg daily. 12.Prednisone 20 mg daily with breakfast. ASSESSMENT: 1. Pneumonia. 2. Generalized weakness. 3. Possible oral candidiasis. 4. Hypertension. 5. Hyperlipidemia. 6. Type 2 diabetes mellitus. 7. Chronic obstructive pulmonary airway disease. 8. Coronary artery disease. PLAN: 1. Pneumonia. The patient noted to have pneumonia, mostly involving the right lower lobe and he is currently on Levaquin. The patient is noted to have some cough while drinking water, so we will order for speech and swallow evaluation. Make sure the patient is not aspirating and causing this recurrent pneumonias, we will closely follow. Continue the oral Levaquin for now. We will recheck a CBC and a BMP in a.m. 2. Hyperglycemia. The patient noted to have tight control diabetes and currently having hyperglycemia secondary to steroid dosing. We will have him on a basal insulin like Lantus and continue supplemental scale insulin as needed for additional coverage of his blood glucose. 3. Chronic obstructive pulmonary disease, remains stable. The patient is noted to be on nebulizer treatment, continue the same. He is also noted to be on tapered dose of steroids. Continue the same. 4. Coronary artery disease. The patient denies any ongoing chest pains. Continue with Plavix and statin. 5. Generalized weakness. The patient was evaluated by Physical Therapy and Occupational Therapy while in the swing bed. Continue the same. 6. Oral thrush. The patient is noted to have oral thrush. We will start him on oral Diflucan for now. [facility] /[id number]
[2017-05-05] MEDS ORDERED: Sodium Chloride 0.9% 10 ML Syringe FLUSH PRN (14:01)
[2017-05-05] MEDS ORDERED: Sodium Chloride 0.9% 1,000 ML IV SCH ×2 (14:30→23:45)
[2017-05-05] MEDS: Insulin Detemir 100 Units/ML 3 ML Pen SUBCUT SCH (17:18)
[2017-05-05] MEDS: Docusate Sodium 100 MG Cap **OWN MED PO SCH (20:20)
[2017-05-05] MEDS: LATANOPROST 0.005% EYEBOTH SCH (20:51)
[2017-05-06] MEDS: Heparin Sodium 5,000 Units/ML Vial SUBCUT SCH ×3 (05:35→21:54)
[2017-05-06] MEDS: Pantoprazole 40 MG Tab.CR PO SCH (05:40)
[2017-05-06 06:44] LABS: CHLORIDE,CL 104 mmol/L (101-111); SODIUM,NA 137 mmol/L (135-145)
[2017-05-06] MEDS: Albuterol/Ipratropium 3.0-0.5 MG/3 ML Neb Soln NEB SCH ×3 (07:16→21:29)
[2017-05-06] MEDS: Budesonide 0.5 MG/2 ML Neb Susp NEB SCH ×3 (07:16→19:18)
[2017-05-06] MEDS: Insulin Detemir 100 Units/ML 3 ML Pen SUBCUT SCH ×2 (08:14→17:44)
[2017-05-06] MEDS: Levofloxacin 250 MG Tab PO SCH (08:52)
[2017-05-06] MEDS: Fluconazole 100 MG Tab PO SCH (08:53)
[2017-05-06] MEDS: Clopidogrel 75 MG Tab PO SCH (08:53)
[2017-05-06] MEDS: predniSONE 20 MG Tab PO SCH (08:53)
[2017-05-06] MEDS: Insulin Aspart 100 Units/ML 3 ML Pen SUBCUT SCH ×4 (10:57→21:30)
[2017-05-06] MEDS: Fluticasone Propionate Nasal Spray 16 GM Bottle NASBOTH SCH (12:48)
[2017-05-06] MEDS: Docusate Sodium 100 MG Cap **OWN MED PO SCH (21:30)
[2017-05-06] MEDS: LATANOPROST 0.005% EYEBOTH SCH (21:54)
[2017-05-06] MEDS: Benzonatate 100 MG Cap PO PRN (21:55)
[2017-05-07] MEDS: Pantoprazole 40 MG Tab.CR PO SCH (05:44)
[2017-05-07] MEDS: Heparin Sodium 5,000 Units/ML Vial SUBCUT SCH ×3 (05:44→22:32)
[2017-05-07] MEDS: Budesonide 0.5 MG/2 ML Neb Susp NEB SCH ×3 (08:08→23:52)
[2017-05-07] MEDS: Albuterol/Ipratropium 3.0-0.5 MG/3 ML Neb Soln NEB SCH ×3 (08:08→22:33)
[2017-05-07] MEDS: Fluticasone Propionate Nasal Spray 16 GM Bottle NASBOTH SCH (08:09)
[2017-05-07] MEDS: Insulin Aspart 100 Units/ML 3 ML Pen SUBCUT SCH ×4 (08:09→22:36)
[2017-05-07] MEDS: predniSONE 20 MG Tab PO SCH (08:29)
[2017-05-07] MEDS: Levofloxacin 250 MG Tab PO SCH (08:29)
[2017-05-07] MEDS: Fluconazole 100 MG Tab PO SCH (08:29)
[2017-05-07] MEDS: Clopidogrel 75 MG Tab PO SCH (08:29)
[2017-05-07] MEDS: Insulin Detemir 100 Units/ML 3 ML Pen SUBCUT SCH (17:45)
[2017-05-07] MEDS: Docusate Sodium 100 MG Cap **OWN MED PO SCH (22:33)
[2017-05-07] MEDS: LATANOPROST 0.005% EYEBOTH SCH (22:35)
[2017-05-08] MEDS: Heparin Sodium 5,000 Units/ML Vial SUBCUT SCH ×3 (05:53→22:22)
[2017-05-08] MEDS: Pantoprazole 40 MG Tab.CR PO SCH (05:54)
[2017-05-08] MEDS: Albuterol/Ipratropium 3.0-0.5 MG/3 ML Neb Soln NEB SCH ×3 (07:16→22:23)
[2017-05-08] MEDS: Budesonide 0.5 MG/2 ML Neb Susp NEB SCH ×3 (07:16→17:53)
[2017-05-08] MEDS: Levofloxacin 250 MG Tab PO SCH (08:30)
[2017-05-08] MEDS: Clopidogrel 75 MG Tab PO SCH (08:30)
[2017-05-08] MEDS: Fluticasone Propionate Nasal Spray 16 GM Bottle NASBOTH SCH (08:30)
[2017-05-08] MEDS: predniSONE 20 MG Tab PO SCH (08:30)
[2017-05-08] MEDS: Fluconazole 100 MG Tab PO SCH (08:30)
--- NOTE | 2017-05-08 08:38 | CR ---
Clinical history: 81-year-old diabetic male with history "pneumonia" and persistent cough. Interpretation: Abnormal but radiographically unchanged since 02 May films. Reproducible dense pneumonic like consolidation involving the right lower lobe with associated pleur al reactive changes. Normal cardiac silhouette without heart failure. Left lung and pleural space remain clear. Large "lipoma" over the upper right chest, posteriorly. CONCLUSION: No improvement.
--- NOTE | 2017-05-08 09:55 | PN ---
DATE: 05/06/2017 SUBJECTIVE: Mr. Jamil Cadet is an 81-year-old male with a medical history significant for hypertension, hyperlipidemia, chronic obstructive pulmonary disease, history of coronary artery disease, admitted with complaints of pneumonia requiring readmission to the swing bed with complaints of increasing weakness. For the last 24 hours, the patient received IV fluids. The patient was noted to have hypotensive episodes and was positive for orthostatic blood pressure requiring IV fluids, after which his blood pressure seems to be improved. He was noted to have a small ulcer in the coccygeal area requiring DuoDERM placement. He also had a swallow study done which showed evidence of aspirations, so he is recommended to have thickened liquids. This morning, he denies any complaints of chest pain. No shortness of breath. No abdominal pain. No nausea. No vomiting. Claims that his weakness is much improved. REVIEW OF SYSTEMS: Cardiovascular, respiratory, gastrointestinal, neurology, constitutional were all evaluated. PHYSICAL EXAMINATION: Vital signs: Temperature of 96.9, pulse of 88, blood pressure 116/77, respiratory rate of 20, and saturating at 98% on room air. General Appearance: The patient is well oriented to time, place, and person. Follows commands spontaneously. Cardiovascular System: S1, S2 heard with normal intensity. No gallops. Respiratory: Clear to auscultation bilaterally except for mild crepitations at the bases. No wheeze. Abdomen: Soft. Bowel sounds positive. Nontender. No rigidity. Extremities: No edema bilateral lower extremities. Neurology: No gross focal neurological deficit appreciated. MEDICATIONS: Reviewed. Continue with: 1. Albuterol 2.5 mg nebulizer 4 times a day as needed. 2. DuoNeb 3 mL nebulizer 3 times a day. 3. Tessalon Perles 100 mg 3 times a day as needed for cough. 4. Pulmicort 0.5 mg nebulizer twice a day. 5. Plavix 75 mg daily. 6. Docusate sodium 100 mg as needed. 7. Diflucan 100 mg daily. 8. Flonase daily. 9. Heparin 5000 subcutaneous q.8 hourly. 10.NovoLog supplemental scale. 11.Levemir 15 units at bedtime. 12.Levaquin 750 mg oral daily. 13.Prednisone 20 mg daily. 14.Protonix 40 mg daily. 15.Senokot with docusate sodium as needed daily. LABORATORY DATA: Reviewed. WBC 15.1, hemoglobin 9.3, hematocrit 27.7, and platelet count 232. Sodium 137, potassium 3.8, chloride 104, bicarb 25, BUN 26, and creatinine 1. Glucose 267. ASSESSMENT: 1. Pneumonia. 2. Generalized weakness. 3. Orthostatic hypotension. 4. Coccygeal ulcer. 5. Oral candidiasis. 6. Possible aspiration. 7. Hypertension. 8. Hyperlipidemia. 9. Type 2 diabetes mellitus. 10.Chronic obstructive pulmonary disease. 11.Coronary artery disease. PLAN: 1. Pneumonia. The patient has recurrent pneumonia, questionable aspiration. At this time, the patient has been on Levaquin. His leukocytosis seems to be improving. We will continue with oral Levaquin. The patient was evaluated by speech and swallow evaluation and was noted to have possible aspiration. He is recommended to be on thickened liquids, we will continue the same. The patient is encouraged to sit upright 90 degrees while he is eating and have him on aspiration precautions at this time. 2. Generalized weakness. The patient was noted to be very weak yesterday, this is mainly from hypotensive episodes, possibly from dehydration. We will have him on IV fluids, after which his blood pressures improved. We will discontinue the IV fluids at this time. 3. Oral candidiasis. The patient was started on oral Diflucan which seems to be improving his symptoms. 4. Hypertension, much improved. Try to avoid any hypotensive episodes. Try to avoid any antihypertensive medications. Normalize the blood pressure. 5. Type 2 diabetes mellitus, improving. We started him on Levemir 15 units at bedtime in addition to the supplemental scale insulin. Try to avoid any hypoglycemic episodes. Have him on hypoglycemic protocol. 6. Chronic obstructive pulmonary airway disease, remains stable. Continue with current nebulizer treatment with DuoNeb, Pulmicort nebulizer, and use Flonase. 7. Coronary artery disease. Denies any ongoing chest pain. 8. Continue with physical therapy and occupational therapy while in the swing bed. [facility] /[id number]
[2017-05-08] MEDS: Insulin Aspart 100 Units/ML 3 ML Pen SUBCUT SCH ×4 (12:24→22:15)
--- NOTE | 2017-05-08 15:18 | PCM.PN ---
- General Info Date of Service: 05/08/17 Admission Dx/Problem (Free Text): Admission Diagnosis/Problem Admission Diagnosis/Problem Weakness Admitted after acute care for pneumonia. Subjective Update: Patient stated that his feeling better. He denies shortness of breath. He is still having cough but better. Overall he is feeling better. However he had the best of hypoglycemia today where he was shaking and felt cold. Otherwise he denies fever, chills, nausea, vomiting, chest pain, or any other symptoms. - Patient Data Vitals - most recent: Last Vital Signs Temp 36.5 C 05/08/17 06:46 Pulse 89 05/08/17 07:17 Resp 20 05/08/17 06:46 BP 120/70 05/08/17 06:46 Pulse Ox 100 05/08/17 06:46 Orthostatic Blood Pressure [ 74/40 Standing] Orthostatic Blood Pressure [ 98/50 Sitting] Orthostatic Blood Pressure [ 96/55 Supine] Weight - most recent: 69.037 kg I&O - last 24 hours: Intake & Output 05/08/17 05/08/17 05/08/17 06:59 14:59 22:59 Intake Total 480 Output Total 350 Balance 130 Lab Results last 24 hrs: Laboratory Results - last 24 hr 05/07/17 05/07/17 05/08/17 Range/Units 16:56 20:59 02:20 WBC (5.0-10.0) 10^3/uL RBC (4.6-6.2) 10^6/uL Hgb (14.0-18.0) g/dL Hct (40.0-54.0) % MCV (80-100) fL MCH (27.0-34.0) pg MCHC (33.0-35.0) g/dL Plt Count (150-450) 10^3/uL POC Glucose 239 H 324 H 51 L (83-110) mg/dl 05/08/17 05/08/17 05/08/17 Range/Units 05:50 07:53 11:29 WBC 12.6 H (5.0-10.0) 10^3/uL RBC 3.19 L (4.6-6.2) 10^6/uL Hgb 9.8 L (14.0-18.0) g/dL Hct 30.1 L (40.0-54.0) % MCV 94.4 (80-100) fL MCH 30.7 (27.0-34.0) pg MCHC 32.6 L (33.0-35.0) g/dL Plt Count 230 (150-450) 10^3/uL POC Glucose 213 H 129 H (83-110) mg/dl Med Orders - Current: Current Medications Albuterol (Proventil Neb Soln) 2.5 mg NEB QIDRT PRN PRN Reason: Shortness of Breath Last Admin: 04/28/17 17:58 Dose: 2.5 mg Albuterol/Ipratropium (Duoneb 3.0-0.5 Mg/3 Ml) 3 ml NEB TIDRT [facility] Last Admin: 05/08/17 07:16 Dose: 3 ml Benzonatate (Tessalon Perles) 100 mg PO TID PRN PRN Reason: Cough Last Admin: 05/06/17 21:55 Dose: 100 mg Budesonide (Pulmicort) 0.5 mg NEB BIDRT [facility] Last Admin: 05/08/17 07:16 Dose: 0.5 mg Clopidogrel Bisulfate (Plavix) 75 mg PO DAILY [facility] Last Admin: 05/08/17 08:30 Dose: 75 mg Docusate Sodium (Colace) 100 mg PO DAILY PRN PRN Reason: Constipation Last Admin: 05/02/17 21:05 Dose: 100 mg Docusate Sodium (Colace) 100 mg PO BEDTIME [facility] Last Admin: 05/07/17 22:33 Dose: 100 mg Fluconazole (Diflucan) 100 mg PO DAILY [facility] Last Admin: 05/08/17 08:30 Dose: 100 mg Fluticasone Propionate (Flonase) 0 gm NASBOTH DAILY [facility] Last Admin: 05/08/17 08:30 Dose: 1 spray Heparin Sodium (Porcine) (Heparin Sodium) 5,000 units SUBCUT Q8HR [facility] Last Admin: 05/08/17 05:53 Dose: 5,000 units Ceftriaxone Sodium 1 gm/ (Sodium Chloride) 50 mls @ 100 mls/hr IV Q24H [facility] Insulin Aspart (Novolog) 0 unit SUBCUT ACBED [facility] PRN Reason: Protocol Last Admin: 05/08/17 12:29 Dose: 2 units Insulin Detemir (Levemir) 15 unit SUBCUT DAILY@1800 [facility] Last Admin: 05/07/17 17:45 Dose: 15 units Latanoprost (Xalatan 0.005% Ophth Soln) 0 ml EYEBOTH BEDTIME [facility] Last Admin: 05/07/17 22:35 Dose: 1 drop Levofloxacin (Levaquin) 750 mg PO DAILY [facility] Last Admin: 05/08/17 08:30 Dose: 750 mg Pantoprazole Sodium (Protonix) 40 mg PO ACBRK [facility] Last Admin: 05/08/17 05:54 Dose: 40 mg Prednisone (Prednisone) 20 mg PO WITHBREAKFAST [facility] Stop: 05/09/17 08:01 Last Admin: 05/08/17 08:30 Dose: 20 mg Prednisone (Prednisone) 10 mg PO DAILY [facility] Stop: 05/15/17 09:01 Senna/Docusate Sodium (Senna Plus) 1 tab PO DAILY [facility] Last Admin: 05/08/17 08:30 Dose: 1 tab Discontinued Medications Docusate Sodium (Colace) 100 mg PO DAILY PRN PRN Reason: Constipation Last Admin: 04/28/17 21:57 Dose: 100 mg Docusate Sodium (Colace) 100 mg PO DAILY [facility] Last Admin: 05/03/17 08:55 Dose: 100 mg Famotidine (Pepcid) 20 mg PO BID [facility] Last Admin: 05/05/17 08:39 Dose: 20 mg Sodium Chloride (Normal Saline) 1,000 mls @ 100 mls/hr IV ASDIRECTED [facility] Stop: 05/06/17 00:29 Last Admin: 05/05/17 14:30 Dose: 100 mls/hr Sodium Chloride (Normal Saline) 1,000 mls @ 75 mls/hr IV ASDIRECTED [facility] Last Admin: 05/06/17 00:36 Dose: 75 mls/hr Insulin Detemir (Levemir) 15 unit SUBCUT DAILY [facility] Last Admin: 05/06/17 08:14 Dose: Not Given Prednisone (Prednisone) 40 mg PO WITHBREAKFAST [facility] Prednisone (Prednisone) 40 mg PO WITHBREAKFAST [facility] Stop: 05/03/17 08:01 Last Admin: 05/03/17 08:53 Dose: 40 mg Sodium Chloride (Saline Flush) 10 ml FLUSH ASDIRECTED PRN PRN Reason: Keep Vein Open - Exam General: alert, oriented, cooperative, no acute distress, severe distress. No: mild distress, moderate distress, sedated, lethargic, obtunded HEENT: Pupils equal, Pupils reactive, EOMI, Mucous membr. moist/pink Neck: supple, trachea midline, no JVD Lungs: Normal respiratory effort, Rales (On the right side). No: Stridor, Wheezing Cardiovascular: Regular Rate, Regular Rhythm Abdomen: bowel sounds present, soft, no tenderness, no distension Extremities: no edema, no tenderness/swelling Skin: warm, dry, intact Neurological: no new focal deficit Psy/Mental Status: alert, normal affect, normal mood - Problem List Review Problem List Initiated/Reviewed/Updated: Yes - My Orders Last 24 Hours: My Active Orders 05/08/17 15:15 cefTRIAXone [Rocephin] 1 gm Sodium Chloride 0.9% [Normal Saline] 50 ml IV Q24H - Plan Plan:: Right lower lobe pneumonia, with bilateral r>l effusion on repeat CXR on 05/02 effusion resolved, still r. consolidation On repeat chest x-ray on 05/08/17 there was no improvement in his pneumonia, so Rocephin IV was added to oral Levaquin Repeated CBC on 05/08/17 showed improvement of the WBC continue with incentive spirometry and flutter valve Continue oxygen supplementation as needed -repeat CBC and chest x-ray on Monday Hypoglycemia Continue to watch his blood glucose Hyperglycemia on a patient with history of diet-controlled - Patient has been on steroids, continue glucose checks - use NovoLog sliding scale COPD, stable - Continue nebulizations with scheduled Pulmicort, DuoNeb, p.r.n. DuoNeb - Taper systemic steroids history of coronary artery disease - Chest pain-free, on Plavix Generalized weakness - PT OT treatment
[2017-05-08] MEDS: cefTRIAXone 1 GM in Sodium Chloride 0.9% 50 ML IV SCH (16:34)
[2017-05-08] MEDS ORDERED: Insulin Detemir 100 Units/ML 3 ML Pen SUBCUT SCH (18:45)
[2017-05-08] MEDS: Insulin Detemir 100 Units/ML 3 ML Pen SUBCUT SCH ×2 (19:00→22:30)
[2017-05-08] MEDS: Docusate Sodium 100 MG Cap **OWN MED PO SCH (22:15)
[2017-05-08] MEDS: LATANOPROST 0.005% EYEBOTH SCH (22:17)
[2017-05-08] MEDS: Benzonatate 100 MG Cap PO PRN (22:29)
[2017-05-09] MEDS: Pantoprazole 40 MG Tab.CR PO SCH (06:39)
[2017-05-09] MEDS: Heparin Sodium 5,000 Units/ML Vial SUBCUT SCH ×3 (06:39→21:05)
[2017-05-09] MEDS: Albuterol/Ipratropium 3.0-0.5 MG/3 ML Neb Soln NEB SCH ×3 (07:13→20:53)
[2017-05-09] MEDS: Budesonide 0.5 MG/2 ML Neb Susp NEB SCH ×2 (07:13→17:54)
[2017-05-09] MEDS: Clopidogrel 75 MG Tab PO SCH (08:23)
[2017-05-09] MEDS: predniSONE 20 MG Tab PO SCH (08:24)
[2017-05-09] MEDS: Fluconazole 100 MG Tab PO SCH (08:24)
[2017-05-09] MEDS: Levofloxacin 250 MG Tab PO SCH (08:24)
[2017-05-09] MEDS: Insulin Aspart 100 Units/ML 3 ML Pen SUBCUT SCH ×4 (08:25→21:15)
[2017-05-09] MEDS: Fluticasone Propionate Nasal Spray 16 GM Bottle NASBOTH SCH (08:28)
[2017-05-09] MEDS: Sodium Chloride 0.9% 10 ML Syringe FLUSH PRN ×2 (15:33→20:58)
[2017-05-09] MEDS: cefTRIAXone 1 GM in Sodium Chloride 0.9% 50 ML IV SCH (15:33)
[2017-05-09] MEDS: Insulin Detemir 100 Units/ML 3 ML Pen SUBCUT SCH (17:25)
[2017-05-09] MEDS: Benzonatate 100 MG Cap PO PRN (20:53)
[2017-05-09] MEDS: Docusate Sodium 100 MG Cap **OWN MED PO SCH (20:53)
[2017-05-09] MEDS: LATANOPROST 0.005% EYEBOTH SCH (20:54)
[2017-05-10] MEDS: Pantoprazole 40 MG Tab.CR PO SCH (05:18)
[2017-05-10] MEDS: Heparin Sodium 5,000 Units/ML Vial SUBCUT SCH ×3 (05:18→22:15)
[2017-05-10] MEDS: Budesonide 0.5 MG/2 ML Neb Susp NEB SCH ×3 (07:11→19:18)
[2017-05-10] MEDS: Albuterol/Ipratropium 3.0-0.5 MG/3 ML Neb Soln NEB SCH ×3 (07:11→20:42)
[2017-05-10] MEDS: Insulin Aspart 100 Units/ML 3 ML Pen SUBCUT SCH ×4 (10:32→21:24)
[2017-05-10] MEDS: Fluticasone Propionate Nasal Spray 16 GM Bottle NASBOTH SCH (10:33)
[2017-05-10] MEDS: Docusate Sodium 100 MG Cap **OWN MED PO PRN (10:34)
[2017-05-10] MEDS: predniSONE 20 MG Tab PO SCH (10:35)
[2017-05-10] MEDS: Levofloxacin 250 MG Tab PO SCH (10:37)
[2017-05-10] MEDS: Clopidogrel 75 MG Tab PO SCH (10:38)
[2017-05-10] MEDS: Fluconazole 100 MG Tab PO SCH (10:40)
[2017-05-10] MEDS: Nystatin Susp 100,000 Unit/ML 5 ML UD Cup PO SCH ×3 (13:28→20:43)
[2017-05-10] MEDS: cefTRIAXone 1 GM in Sodium Chloride 0.9% 50 ML IV SCH (15:57)
[2017-05-10] MEDS: Sodium Chloride 0.9% 10 ML Syringe FLUSH PRN (15:57)
[2017-05-10] MEDS: Insulin Detemir 100 Units/ML 3 ML Pen SUBCUT SCH (17:51)
[2017-05-10] MEDS: Docusate Sodium 100 MG Cap **OWN MED PO SCH (20:41)
[2017-05-10] MEDS: LATANOPROST 0.005% EYEBOTH SCH (20:43)
[2017-05-11] MEDS: Pantoprazole 40 MG Tab.CR PO SCH (05:38)
[2017-05-11] MEDS: Heparin Sodium 5,000 Units/ML Vial SUBCUT SCH ×3 (05:38→21:15)
[2017-05-11] MEDS: Albuterol/Ipratropium 3.0-0.5 MG/3 ML Neb Soln NEB SCH ×3 (07:44→21:12)
[2017-05-11] MEDS: Budesonide 0.5 MG/2 ML Neb Susp NEB SCH ×2 (07:56→18:09)
[2017-05-11] MEDS: Insulin Aspart 100 Units/ML 3 ML Pen SUBCUT SCH (08:02)
[2017-05-11] MEDS: predniSONE 20 MG Tab PO SCH (09:47)
[2017-05-11] MEDS: Clopidogrel 75 MG Tab PO SCH (09:52)
[2017-05-11] MEDS: Levofloxacin 250 MG Tab PO SCH (09:53)
[2017-05-11] MEDS: Fluticasone Propionate Nasal Spray 16 GM Bottle NASBOTH SCH (10:01)
[2017-05-11] MEDS: Fluconazole 100 MG Tab PO SCH (10:28)
[2017-05-11] MEDS: Nystatin Susp 100,000 Unit/ML 5 ML UD Cup PO SCH (10:29)
--- NOTE | 2017-05-11 10:54 | PCM.SN ---
- Free Text/Narrative Note: Patient stated that he is feeling better. However for the last 2 days he has been feeling tired in the morning. This morning he had low-grade fever at 99.3 Fahrenheit. He said his cough and sputum are better. He denies shortness breath except when he did some activities this morning. On exam he was alert, oriented , not in acute distress. I'm still a hearing crackles in the right field. He denies history of choking on food however he was placed on honey thick diet due to bedside evaluation by the occupational therapist Assessment and plan Pneumonia He was on Levaquin then early this week Rocephin was added Repeat CT scan, CBC, CMP Sputum culture to be ordered based on CAT scan results may consider adding Flagyl to cover anaerobic or possibly consult mechanical supervisor versus infectious disease. I will leave it up to the hospitalist/provider who is going to take over tomorrow.
[2017-05-11] MEDS: Sodium Chloride 0.9% 10 ML Syringe FLUSH PRN (16:27)
[2017-05-11] MEDS: cefTRIAXone 1 GM in Sodium Chloride 0.9% 50 ML IV SCH (16:27)
[2017-05-11] MEDS: Docusate Sodium 100 MG Cap **OWN MED PO SCH (21:14)
[2017-05-11] MEDS: LATANOPROST 0.005% EYEBOTH SCH (21:15)
[2017-05-12] MEDS: Albuterol 0.083% 2.5 MG/3 ML Neb Soln NEB PRN (02:55)
[2017-05-12] MEDS ORDERED: Meropenem 1 GM in Sodium Chloride 0.9% 100 ML IV SCH (03:00)
[2017-05-12] MEDS ORDERED: Acetaminophen 325 MG Tab PO PRN (03:07)
[2017-05-12] MEDS ORDERED: Sodium Chloride 0.9% 1,000 ML IV ONE (03:24)
[2017-05-12] MEDS ORDERED: Sodium Chloride 0.9% 500 ML IV ONE (03:35)
[2017-05-12] MEDS ORDERED: Ondansetron 4 MG/2 ML SDV IV PRN (03:43)
[2017-05-12 04:08] LABS: BASE EXCESS ARTERIAL 0 mmol/L ((-2)-(+3)); BICARBONATE,ARTERIAL 22.9 mmol/L (22-26); O2 DELIVERY DEVICE VENT MASK; O2 SATURATION ARTERIAL 91 % (95-100); PCO2 ARTERIAL 31 mmHg (35-45); PO2 ARTERIAL 63 mmHg (70-100)
[2017-05-12 04:11] LABS: ALLEN TEST POSITIVE
[2017-05-12] MEDS ORDERED: Sodium Chloride 0.9% 250 ML IV SCH (04:15)
[2017-05-12] MEDS ORDERED: Sodium Chloride 0.9% 500 ML IV SCH (04:15)
--- NOTE | 2017-05-12 04:47 | PCM.DCSUM1 ---
Discharge Summary - Hospital Course Free Text/Narrative:: the patient is an 81-year-old gentleman who was initially admitted with community-acquired pneumonia on 04/18/17. He was started on Levaquin in attention to COPD treatment including tapering steroids. His chest x-ray showed right mid lobe consolidation. His WBC were elevated. Highest WBC was 20,000. WBC was repeated last Monday and was 12,000. He is currently in swing bed. He has been on Levaquin since 04/01/17. CT abdomen, pelvis, chest, was done on and showed asymmetric mixed pneumonic like consolidation and atelectasis involving the entire right lower lobe was ipsilateral large dependent right pleural effusion. Also it showed cholelithiasis. Last Monday his repeated chest x-ray did not show an improvement so Rocephin was added to oral Levaquin. Yesterday morning patient felt more tired than usual but he is status cough improved and he had temp of 99.3. Early this morning he had acute respiratory distress and sats dropped to 79%. He required Ventimask on 30% off oxygen, then BiPAP. His chest x-ray today continued to show and changed consolidation from last Monday but worse than the one taken on 04/24/17. WBC increased to 15,000. Lactic acid 2.4. PH 7.48. PCO2 31. PO2 63. HCO3 22.9. O2 separation 91. CRP 9.9. Creatinine 1.2. BUN 28. Magnesium 1.6. Phosphorus 3.5. Patient received 1 L of normal saline as a bolus. I stopped his Levaquin and Rocephin as started on meropenem and vancomycin. I spoke to his daughter BOGDAN Argueta. I discussed with her continuing treatment here versus transferring to [facility]. She prefers that her father be transferred to [facility]. She still wants him to be full code. I spoke to Dr. Flores, hospitalist at [facility] who kindly accepted the patient. Patient will be transferred by ground ambulance ambulance and using CPAP Blood and Sputum cultures was done on 04/18/17 and 04/26/17 were negative. He finished his tapering steroids yesterday. He developed hyperglycemia after being started on steroids and required Levemir 15 units nightly and NovoLog per sliding scale - Discharge Data Discharge Date: 05/12/17 Discharge Disposition: Home, Self-Care 01 Condition: Good - Patient Summary/Data Consults: Consultations 04/27/17 10:30 OT Evaluation and Treatment [CONS] Routine PT Evaluation and Treatment [CONS] Routine - Discharge Plan Home Medications: Home Meds Pantoprazole [ProTONIX] 40 mg PO DAILY 09/15/15 [History] Albuterol/Ipratropium [DuoNeb 3.0-0.5 MG/3 ML] 3 ml NEB TID #90 neb 07/23/16 [Rx ] Budesonide [Pulmicort] 0.5 mg NEB BIDRT #60 neb 07/23/16 [Rx] Clopidogrel [Plavix] 75 mg PO DAILY 04/18/17 [History] Docusate Sodium [Colace] 100 mg PO DAILY PRN 04/18/17 [History] Fluticasone Propionate [Flonase] 1 spray NASBOTH DAILY 04/18/17 [History] Ranitidine HCl [Zantac] 150 mg PO BID 04/18/17 [History] Benzonatate [Tessalon Perles] 100 mg PO TID PRN 7 Days 04/24/17 [Rx] Methylprednisolone [IJD: Methylprednisolone] 4 mg PO DAILY #21 tab 04/24/17 [Rx] Albuterol [IJD: Albuterol] 2.5 mg NEB QID PRN #0 nebule 04/27/17 [Rx] Latanoprost [Xalatan 0.005% Ophth Soln] 1 drop EYEBOTH BEDTIME 05/04/17 [History ] Meropenem [Merrem] 1 gm IV Q8H sdv 05/12/17 [Rx] Patient Handouts: Thrush, Adult, Fluconazole tablets - Discharge Summary/Plan Comment DC Time >30 min.: Yes (45 minutes were spent discharging this patient and transferring him) - General Info Date of Service: 05/12/17 Subjective Update: Review of system is difficult to assess due to respiratory distress and being on BiPAP - Patient Data Vitals - Most Recent: Last Vital Signs Temp 37.1 C 05/11/17 21:00 Pulse 96 05/11/17 21:25 Resp 20 05/11/17 21:00 BP 101/51 L 05/11/17 21:00 Pulse Ox 95 05/11/17 21:00 Orthostatic Blood Pressure [ 74/40 Standing] Orthostatic Blood Pressure [ 98/50 Sitting] Orthostatic Blood Pressure [ 96/55 Supine] Weight - Most Recent: 68.492 kg I&O - Last 24 hours: Intake & Output 05/11/17 05/11/17 05/12/17 14:59 22:59 06:59 Intake Total 670 150 Output Total 400 425 Balance 270 150 -425 Lab Results - Last 24 hrs: Laboratory Results - last 24 hr 05/11/17 05/11/17 05/11/17 Range/Units 07:34 11:05 16:59 WBC (5.0-10.0) 10^3/uL RBC (4.6-6.2) 10^6/uL Hgb (14.0-18.0) g/dL Hct (40.0-54.0) % MCV (80-100) fL MCH (27.0-34.0) pg MCHC (33.0-35.0) g/dL Plt Count (150-450) 10^3/uL Neut % (Auto) (42.2-75.2) % Lymph % (Auto) (20.5-50.1) % Riley % (Auto) (2-8) % Eos % (Auto) (1.0-3.0) % Baso % (Auto) (0.0-1.0) % ABG pH (7.35-7.45) ABG pCO2 (35-45) mmHg ABG pO2 (70-100) mmHg ABG HCO3 (22-26) mmol/L ABG O2 Saturation (95-100) % ABG Base Excess ((-2)-(+3)) mmol/L Ryan Test O2 Delivery Device Sodium (135-145) mmol/L Potassium (3.6-5.0) mmol/L Chloride (101-111) mmol/L Carbon Dioxide (21.0-31.0) mmol/L Anion Gap BUN (7-18) mg/dL Creatinine (0.6-1.3) mg/dL Est Cr Clr Drug Dosing mL/min Estimated GFR (MDRD) BUN/Creatinine Ratio Glucose (74-105) mg/dL POC Glucose 70 L 234 H 210 H (83-110) mg/dl Lactic Acid (0.5-2.2) mmol/L Calcium (8.4-10.2) mg/dl Phosphorus (2.5-4.6) mg/dL Magnesium (1.8-2.5) mg/dL Total Bilirubin (0.2-1.0) mg/dL AST (10-42) IU/L ALT (10-60) IU/L Alkaline Phosphatase (42-121) IU/L Troponin I (0.00-0.02) ng/ml C-Reactive Protein (0.0-1.3) mg/dL Total Protein (6.7-8.2) g/dl Albumin (3.2-5.5) g/dl Globulin Albumin/Globulin Ratio 05/11/17 05/12/17 05/12/17 Range/Units 21:16 03:30 03:30 WBC 15.4 H (5.0-10.0) 10^3/uL RBC 3.46 L (4.6-6.2) 10^6/uL Hgb 10.9 L (14.0-18.0) g/dL Hct 32.7 L (40.0-54.0) % MCV 94.5 (80-100) fL MCH 31.5 (27.0-34.0) pg MCHC 33.3 (33.0-35.0) g/dL Plt Count 298 (150-450) 10^3/uL Neut % (Auto) 83.9 H (42.2-75.2) % Lymph % (Auto) 13.7 L (20.5-50.1) % Riley % (Auto) 2.2 (2-8) % Eos % (Auto) 0.1 L (1.0-3.0) % Baso % (Auto) 0.1 (0.0-1.0) % ABG pH (7.35-7.45) ABG pCO2 (35-45) mmHg ABG pO2 (70-100) mmHg ABG HCO3 (22-26) mmol/L ABG O2 Saturation (95-100) % ABG Base Excess ((-2)-(+3)) mmol/L Ryan Test O2 Delivery Device Sodium 138 (135-145) mmol/L Potassium 4.8 (3.6-5.0) mmol/L Chloride 100 L (101-111) mmol/L Carbon Dioxide 25.0 (21.0-31.0) mmol/L Anion Gap 17.8 BUN 28 H (7-18) mg/dL Creatinine 1.2 (0.6-1.3) mg/dL Est Cr Clr Drug Dosing 45.19 mL/min Estimated GFR (MDRD) 58 BUN/Creatinine Ratio 23.33 Glucose 132 H (74-105) mg/dL POC Glucose 235 H (83-110) mg/dl Lactic Acid (0.5-2.2) mmol/L Calcium 8.6 (8.4-10.2) mg/dl Phosphorus (2.5-4.6) mg/dL Magnesium (1.8-2.5) mg/dL Total Bilirubin 0.8 (0.2-1.0) mg/dL AST 19 (10-42) IU/L ALT 17 (10-60) IU/L Alkaline Phosphatase 45 (42-121) IU/L Troponin I (0.00-0.02) ng/ml C-Reactive Protein (0.0-1.3) mg/dL Total Protein 6.8 (6.7-8.2) g/dl Albumin 2.7 L (3.2-5.5) g/dl Globulin 4.1 Albumin/Globulin Ratio 0.66 05/12/17 05/12/17 05/12/17 Range/Units 03:30 03:30 03:30 WBC (5.0-10.0) 10^3/uL RBC (4.6-6.2) 10^6/uL Hgb (14.0-18.0) g/dL Hct (40.0-54.0) % MCV (80-100) fL MCH (27.0-34.0) pg MCHC (33.0-35.0) g/dL Plt Count (150-450) 10^3/uL Neut % (Auto) (42.2-75.2) % Lymph % (Auto) (20.5-50.1) % Riley % (Auto) (2-8) % Eos % (Auto) (1.0-3.0) % Baso % (Auto) (0.0-1.0) % ABG pH (7.35-7.45) ABG pCO2 (35-45) mmHg ABG pO2 (70-100) mmHg ABG HCO3 (22-26) mmol/L ABG O2 Saturation (95-100) % ABG Base Excess ((-2)-(+3)) mmol/L Ryan Test O2 Delivery Device Sodium (135-145) mmol/L Potassium (3.6-5.0) mmol/L Chloride (101-111) mmol/L Carbon Dioxide (21.0-31.0) mmol/L Anion Gap BUN (7-18) mg/dL Creatinine (0.6-1.3) mg/dL Est Cr Clr Drug Dosing mL/min Estimated GFR (MDRD) BUN/Creatinine Ratio Glucose (74-105) mg/dL POC Glucose (83-110) mg/dl Lactic Acid (0.5-2.2) mmol/L Calcium (8.4-10.2) mg/dl Phosphorus 3.5 (2.5-4.6) mg/dL Magnesium 1.6 L (1.8-2.5) mg/dL Total Bilirubin (0.2-1.0) mg/dL AST (10-42) IU/L ALT (10-60) IU/L Alkaline Phosphatase (42-121) IU/L Troponin I < 0.02 (0.00-0.02) ng/ml C-Reactive Protein 9.9 H (0.0-1.3) mg/dL Total Protein (6.7-8.2) g/dl Albumin (3.2-5.5) g/dl Globulin Albumin/Globulin Ratio 05/12/17 05/12/17 Range/Units 03:35 04:00 WBC (5.0-10.0) 10^3/uL RBC (4.6-6.2) 10^6/uL Hgb (14.0-18.0) g/dL Hct (40.0-54.0) % MCV (80-100) fL MCH (27.0-34.0) pg MCHC (33.0-35.0) g/dL Plt Count (150-450) 10^3/uL Neut % (Auto) (42.2-75.2) % Lymph % (Auto) (20.5-50.1) % Riley % (Auto) (2-8) % Eos % (Auto) (1.0-3.0) % Baso % (Auto) (0.0-1.0) % ABG pH 7.48 H (7.35-7.45) ABG pCO2 31 L (35-45) mmHg ABG pO2 63 L (70-100) mmHg ABG HCO3 22.9 (22-26) mmol/L ABG O2 Saturation 91 L (95-100) % ABG Base Excess 0 ((-2)-(+3)) mmol/L Ryan Test Positive O2 Delivery Device Vent mask Sodium (135-145) mmol/L Potassium (3.6-5.0) mmol/L Chloride (101-111) mmol/L Carbon Dioxide (21.0-31.0) mmol/L Anion Gap BUN (7-18) mg/dL Creatinine (0.6-1.3) mg/dL Est Cr Clr Drug Dosing mL/min Estimated GFR (MDRD) BUN/Creatinine Ratio Glucose (74-105) mg/dL POC Glucose (83-110) mg/dl Lactic Acid 2.4 H (0.5-2.2) mmol/L Calcium (8.4-10.2) mg/dl Phosphorus (2.5-4.6) mg/dL Magnesium (1.8-2.5) mg/dL Total Bilirubin (0.2-1.0) mg/dL AST (10-42) IU/L ALT (10-60) IU/L Alkaline Phosphatase (42-121) IU/L Troponin I (0.00-0.02) ng/ml C-Reactive Protein (0.0-1.3) mg/dL Total Protein (6.7-8.2) g/dl Albumin (3.2-5.5) g/dl Globulin Albumin/Globulin Ratio SMITH Results - Last 24 hrs: Microbiology 05/12/17 03:35 Anaerobic Blood Culture - Final Blood - Venous - Lab Draw 05/11/17 15:15 Gram Stain - Final Sputum - Expectorated Med Orders - Current: Current Medications Acetaminophen (Tylenol) 650 mg PO Q6H PRN PRN Reason: Fever Last Admin: 05/12/17 03:14 Dose: 650 mg Albuterol (Proventil Neb Soln) 2.5 mg NEB QIDRT PRN PRN Reason: Shortness of Breath Last Admin: 05/12/17 02:55 Dose: 2.5 mg Albuterol/Ipratropium (Duoneb 3.0-0.5 Mg/3 Ml) 3 ml NEB TIDRT [facility] Last Admin: 05/11/17 21:12 Dose: 3 ml Benzonatate (Tessalon Perles) 100 mg PO TID PRN PRN Reason: Cough Last Admin: 05/09/17 20:53 Dose: 100 mg Budesonide (Pulmicort) 0.5 mg NEB BIDRT [facility] Last Admin: 05/11/17 18:09 Dose: 0.5 mg Clopidogrel Bisulfate (Plavix) 75 mg PO DAILY [facility] Last Admin: 05/11/17 09:52 Dose: 75 mg Docusate Sodium (Colace) 100 mg PO DAILY PRN PRN Reason: Constipation Last Admin: 05/10/17 10:34 Dose: 100 mg Docusate Sodium (Colace) 100 mg PO BEDTIME [facility] Last Admin: 05/11/17 21:14 Dose: 100 mg Fluticasone Propionate (Flonase) 0 gm NASBOTH DAILY [facility] Last Admin: 05/11/17 10:01 Dose: 1 spray Heparin Sodium (Porcine) (Heparin Sodium) 5,000 units SUBCUT Q8HR [facility] Last Admin: 05/11/17 21:15 Dose: 5,000 units Meropenem 1 gm/ Sodium (Chloride) 100 mls @ 200 mls/hr IV Q8H [facility] Last Admin: 05/12/17 04:14 Dose: 200 mls/hr Vancomycin HCl 1.25 gm/ Sodium (Chloride) 250 mls @ 167 mls/hr IV ONETIME ONE Stop: 05/12/17 04:53 Sodium Chloride (Normal Saline) 500 mls @ 250 mls/hr IV ASDIRECTED [facility] Last Admin: 05/12/17 04:24 Dose: 250 mls/hr Latanoprost (Xalatan 0.005% Oph Soln) 0 ml EYEBOTH BEDTIME [facility] Last Admin: 05/11/17 21:15 Dose: 1 drop Ondansetron HCl (Zofran) 4 mg IV Q6H PRN PRN Reason: Nausea/Vomiting Pantoprazole Sodium (Protonix) 40 mg PO ACBRK [facility] Last Admin: 05/11/17 05:38 Dose: 40 mg Prednisone (Prednisone) 10 mg PO DAILY [facility] Stop: 05/15/17 09:01 Last Admin: 05/11/17 09:47 Dose: 10 mg Senna/Docusate Sodium (Senna Plus) 1 tab PO DAILY [facility] Last Admin: 05/11/17 10:03 Dose: 1 tab Sodium Chloride (Saline Flush) 10 ml FLUSH ASDIRECTED PRN PRN Reason: Keep Vein Open Last Admin: 05/11/17 16:27 Dose: 10 ml Discontinued Medications Docusate Sodium (Colace) 100 mg PO DAILY PRN PRN Reason: Constipation Last Admin: 04/28/17 21:57 Dose: 100 mg Docusate Sodium (Colace) 100 mg PO DAILY [facility] Last Admin: 05/03/17 08:55 Dose: 100 mg Famotidine (Pepcid) 20 mg PO BID [facility] Last Admin: 05/05/17 08:39 Dose: 20 mg Fluconazole (Diflucan) 100 mg PO DAILY [facility] Last Admin: 05/11/17 10:28 Dose: Not Given Sodium Chloride (Normal Saline) 1,000 mls @ 100 mls/hr IV ASDIRECTED [facility] Stop: 05/06/17 00:29 Last Admin: 05/05/17 14:30 Dose: 100 mls/hr Sodium Chloride (Normal Saline) 1,000 mls @ 75 mls/hr IV ASDIRECTED [facility] Last Admin: 05/06/17 00:36 Dose: 75 mls/hr Ceftriaxone Sodium 1 gm/ (Sodium Chloride) 50 mls @ 100 mls/hr IV Q24H [facility] Last Admin: 05/11/17 16:27 Dose: 100 mls/hr Sodium Chloride (Normal Saline) 500 mls @ 999 mls/hr IV .BOLUS ONE Stop: 05/12/17 04:05 Last Infusion: 05/12/17 04:20 Dose: Infused Insulin Aspart (Novolog) 0 unit SUBCUT ACBED [facility] PRN Reason: Protocol Last Admin: 05/10/17 17:10 Dose: 2 units Insulin Aspart (Novolog) 0 unit SUBCUT QID [facility] PRN Reason: Protocol Last Admin: 05/11/17 08:02 Dose: Not Given Insulin Detemir (Levemir) 15 unit SUBCUT DAILY [facility] Last Admin: 05/06/17 08:14 Dose: Not Given Insulin Detemir (Levemir) 15 unit SUBCUT DAILY@1800 [facility] Last Admin: 05/08/17 22:30 Dose: Not Given Insulin Detemir (Levemir) 10 unit SUBCUT DAILY [facility] Last Admin: 05/08/17 22:31 Dose: Not Given Insulin Detemir (Levemir) 10 unit SUBCUT DAILY@1800 [facility] Last Admin: 05/10/17 17:51 Dose: 10 units Levofloxacin (Levaquin) 750 mg PO DAILY [facility] Last Admin: 05/11/17 09:53 Dose: 750 mg Nystatin (Mycostatin) 5 ml PO QID [facility] Stop: 05/15/17 13:01 Last Admin: 05/11/17 10:29 Dose: Not Given Prednisone (Prednisone) 40 mg PO WITHBREAKFAST [facility] Prednisone (Prednisone) 20 mg PO WITHBREAKFAST [facility] Stop: 05/09/17 08:01 Last Admin: 05/09/17 08:24 Dose: 20 mg Prednisone (Prednisone) 40 mg PO WITHBREAKFAST [facility] Stop: 05/03/17 08:01 Last Admin: 05/03/17 08:53 Dose: 40 mg Sodium Chloride (Saline Flush) 10 ml FLUSH ASDIRECTED PRN PRN Reason: Keep Vein Open - Exam General: Reports: alert, oriented, cooperative, moderate distress. Denies: sedated, lethargic, obtunded HEENT: Reports: Pupils equal, Pupils reactive, EOMI, Mucous membr. moist/pink Neck: Reports: supple, no JVD Lungs: Reports: Crackles (On right side). Denies: Rhonchi, Rub, Stridor, Wheezing Cardiovascular: Reports: Regular Rhythm, Tachycardia Abdomen: Reports: bowel sounds present, soft, no tenderness, no distension (Male) Exam: Deferred Rectal (Males) Exam: Deferred Extremities: Reports: no edema, normal pulses, no tenderness/swelling, no clubbing, no cyanosis, no calf tenderness Skin: Reports: warm, dry, intact Neurological: Reports: no new focal deficit Psy/Mental Status: Reports: alert, normal affect *Q Meaningful Use (DIS) - VTE *Q VTE Criteria *Q: - Stroke *Q Stroke Criteria *Q: - AMI *Q AMI Criteria *Q:
[2017-05-12 09:50] VITALS: BP 100/45
--- NOTE | 2017-05-15 11:55 | EKG ---
05/12/2017 - [address] - EKG is sinus tachycardia with a rate of 113. Normal MA interval. Normal axis. There is an incomplete right bundle-branch block. IMPRESSION: Abnormal EKG as noted above. [facility] /[id number]
== END 2017-05-12 05:20 | DRG 947 ==
LOC: UNDOADMIN 09:54 → DL.MS 09:54
PROVIDERS: ADMIT Internal Medicine; ATTEND Internal Medicine
DX: R53.1 Weakness (principal); J18.9 Pneumonia, unspecified organism; J44.0 Chronic obstructive pulmonary disease with (acute) lower respiratory infection; J90 Pleural effusion, not elsewhere classified; B37.0 Candidal stomatitis; E11.65 Type 2 diabetes mellitus with hyperglycemia; E11.649 Type 2 diabetes mellitus with hypoglycemia without coma; R06.00 Dyspnea, unspecified; K80.20 Calculus of gallbladder without cholecystitis without obstruction; I25.10 Atherosclerotic heart disease of native coronary artery without angina pectoris; I10 Essential (primary) hypertension; E11.40 Type 2 diabetes mellitus with diabetic neuropathy, unspecified; Z88.0 Allergy status to penicillin; Z88.8 Allergy status to other drugs, medicaments and biological substances; Z79.899 Other long term (current) drug therapy; Z79.4 Long term (current) use of insulin; Z87.891 Personal history of nicotine dependence
CPT/HCPCS: 36415; 36600; 71010; 71020; 80048; 80053; 82803; 82962; 83605; 83735; 84100; 84484; 85025; 85027; 86140; 87040; 87070; 87205; 92610-GN; 93005; 93010; 94640; 94660; 94668; 97110-GO; 97110-GP; 97116-GP; 97161-GP; 97165-GO; 97530-GO; 97535-GO; A9270-GY; J0696; J1644; J1815-GY; J2185; J3370; J7030; J7040; J7050; J7620-GY

== ENCOUNTER 2017-06-06 20:29 | Emergency (ER) | payer MEDICARE, MEDICAID ==
[2017-06-06] MEDS ORDERED: Acetaminophen 650 MG Supp RECTAL STA (20:37)
[2017-06-06] MEDS ORDERED: Sodium Chloride 0.9% 1,000 ML IV ONE (20:38)
[2017-06-06] MEDS ORDERED: Piperacillin/Tazobactam 3.375 GM in Sodium Chloride 0.9% 100 ML IV ONE (21:21)
--- NOTE | 2017-06-06 21:21 | EDM.PDOC ---
ED HPI GENERAL MEDICAL PROBLEM - General Chief Complaint: General Stated Complaint: COMING BY AMBULANCE Time Seen by Provider: 06/06/17 21:00 Source of Information: Reports: EMS, Custodial Records, RN History Limitations: Reports: No Limitations, Other ([place]) - History of Present Illness INITIAL COMMENTS - FREE TEXT/NARRATIVE: ED via [facility], reported patient not feeling well today , reported from [facility] staff that pt had had hi glucose today and was given sliding scale insulin and was not ordered, NH unable to report amount given or what time. Onset: Today Left Upper Back Pain Score (Numeric/FACES): 7 - Related Data Allergies Allergy/AdvReac Type Severity Reaction Status Date / Time Penicillins Allergy Mild Rash Verified 06/06/17 21:46 roflumilast Allergy Mild Itching Verified 06/06/17 21:46 tiotropium bromide Allergy Unknown UNKNOWN Verified 06/06/17 21:46 [From [facility] with HandiHaler] cortisone Allergy Hallucinati Verified 06/06/17 21:46 ons diltiazem Allergy Rash Verified 06/06/17 21:46 simvastatin Allergy Itching Verified 06/06/17 21:46 tiotropium Allergy Itching Verified 06/06/17 21:46 Home Meds: Home Meds Pantoprazole [ProTONIX] 40 mg PO DAILY 09/15/15 [History] Albuterol/Ipratropium [DuoNeb 3.0-0.5 MG/3 ML] 3 ml NEB TID #90 neb 07/23/16 [Rx ] Budesonide [Pulmicort] 0.5 mg NEB BIDRT #60 neb 07/23/16 [Rx] Clopidogrel [Plavix] 75 mg PO DAILY 04/18/17 [History] Docusate Sodium [Colace] 100 mg PO DAILY PRN 04/18/17 [History] Fluticasone Propionate [Flonase] 1 spray NASBOTH DAILY 04/18/17 [History] Ranitidine HCl [Zantac] 150 mg PO BID 04/18/17 [History] Benzonatate [Tessalon Perles] 100 mg PO TID PRN 7 Days 04/24/17 [Rx] Methylprednisolone [IJD: Methylprednisolone] 4 mg PO DAILY #21 tab 04/24/17 [Rx] Albuterol [IJD: Albuterol] 2.5 mg NEB QID PRN #0 nebule 04/27/17 [Rx] Latanoprost [Xalatan 0.005% Ophth Soln] 1 drop EYEBOTH BEDTIME 05/04/17 [History ] Meropenem [Merrem] 1 gm IV Q8H sdv 05/12/17 [Rx] Past Medical History HEENT History: Reports: Hard of Hearing Cardiovascular History: Reports: CAD, Hypertension Respiratory History: Reports: COPD, Pneumonia, Recurrent Gastrointestinal History: Reports: Colon Polyp, Diverticulosis, GERD, Other ( See Below) Other Gastrointestinal History: angiodysplasiaof the colon Musculoskeletal History: Reports: Other (See Below) Other Musculoskeletal History: neuropathy, Dupuytren's contracture, spdondylosis Neurological History: Reports: Neuropathy, Diabetic, Other (See Below) Other Neuro History: carpal tunnel syndrome Endocrine/Metabolic History: Reports: Diabetes, Type II Hematologic History: Reports: Anemia Dermatologic History: Reports: Other (See Below) Other Dermatologic History: hump to right side of upper back. - Past Surgical History Cardiovascular Surgical History: Reports: None Respiratory Surgical History: Reports: None GI Surgical History: Reports: Colonoscopy Social & Family History - Family History Family Medical History: Noncontributory - Tobacco Use Smoking Status *Q: Former Smoker Years of Tobacco use: 20 Used Tobacco, but Quit: No Month Tobacco Last Used: unknown Second Hand Smoke Exposure: No - Caffeine Use Caffeine Use: Reports: None - Alcohol Use Days Per Week of Alcohol Use: 1 Number of Drinks Per Day: 1 Total Drinks Per Week: 1 - Recreational Drug Use Recreational Drug Use: No - Living Situation & Occupation Living situation: Reports: Single, , Alone Occupation: Retired ED ROS GENERAL - Review of Systems Review Of Systems: See Below Constitutional: Reports: Fever HEENT: Reports: No Symptoms Respiratory: Reports: Other (recent pneumonia) Cardiovascular: Reports: Other (tachycardia) GI/Abdominal: Reports: No Symptoms : Reports: No Symptoms Musculoskeletal: Reports: No Symptoms Neurological: Reports: No Symptoms ED EXAM, GENERAL - Physical Exam Exam: See Below Exam Limited By: No Limitations General Appearance: Alert, No Apparent Distress, Thin, Other (hard of hearing) Eye Exam: Bilateral Eye: EOMI Ears: Normal External Exam, Normal TMs Nose: Normal Inspection Throat/Mouth: Normal Inspection Head: Atraumatic, Normocephalic Neck: Normal Inspection Respiratory/Chest: Decreased Breath Sounds (bilateral mid to base, exchange greater on left) Cardiovascular: Regular Rate, Rhythm, Tachycardia GI/Abdominal: Normal Bowel Sounds, Soft Back Exam: No: Other (large soft mass mid upper back) Extremities: Normal Inspection Neurological: Alert, Oriented (person place), Slow to Respond Psychiatric: Normal Mood Skin Exam: Warm, Dry, Intact, Normal Color, No Rash Course - Vital Signs Last Recorded V/S: Last Vital Signs Temp 100.6 F 06/06/17 21:45 Pulse 125 H 06/06/17 21:45 Resp 29 H 06/06/17 21:45 BP 112/51 L 06/06/17 21:45 Pulse Ox 92 L 06/06/17 21:45 - Orders/Labs/Meds Orders: Active Orders 24 hr Category Date Time Status EKG 12 Lead [EKG Documentation Completion] [RC] URGENT Care 06/06/17 20:39 Active CULTURE BLOOD [BC] Stat Lab 06/06/17 21:00 Results CULTURE BLOOD [BC] Stat Lab 06/06/17 21:07 Results Blood Culture x2 Reflex Set [OM.PC] Stat Oth 06/06/17 20:36 Ordered Code Status [Resuscitation Status] Stat Resus Stat 06/06/17 21:17 Ordered Labs: Laboratory Tests 06/06/17 06/06/17 06/06/17 Range/Units 20:31 21:00 21:07 WBC 13.2 H (5.0-10.0) 10^3/uL RBC 3.83 L (4.6-6.2) 10^6/uL Hgb 12.0 L (14.0-18.0) g/dL Hct 36.4 L (40.0-54.0) % MCV 95.0 (80-100) fL MCH 31.3 (27.0-34.0) pg MCHC 33.0 (33.0-35.0) g/dL Plt Count 387 (150-450) 10^3/uL Neut % (Auto) 76.4 H (42.2-75.2) % Lymph % (Auto) 17.5 L (20.5-50.1) % Sac % (Auto) 5.4 (2-8) % Eos % (Auto) 0.5 L (1.0-3.0) % Baso % (Auto) 0.2 (0.0-1.0) % Sodium (135-145) mmol/L Potassium (3.6-5.0) mmol/L Chloride (101-111) mmol/L Carbon Dioxide (21.0-31.0) mmol/L Anion Gap BUN (7-18) mg/dL Creatinine (0.6-1.3) mg/dL Est Cr Clr Drug Dosing mL/min Estimated GFR (MDRD) BUN/Creatinine Ratio Glucose (74-105) mg/dL POC Glucose 89 (83-110) mg/dl Lactic Acid 1.5 (0.5-2.2) mmol/L Calcium (8.4-10.2) mg/dl Total Bilirubin (0.2-1.0) mg/dL AST (10-42) IU/L ALT (10-60) IU/L Alkaline Phosphatase (42-121) IU/L B-Natriuretic Peptide (0-100) pg/ml Total Protein (6.7-8.2) g/dl Albumin (3.2-5.5) g/dl Globulin Albumin/Globulin Ratio // Range/Units 21:07 WBC (5.0-10.0) 10^3/uL RBC (4.6-6.2) 10^6/uL Hgb (14.0-18.0) g/dL Hct (40.0-54.0) % MCV (80-100) fL MCH (27.0-34.0) pg MCHC (33.0-35.0) g/dL Plt Count (150-450) 10^3/uL Neut % (Auto) (42.2-75.2) % Lymph % (Auto) (20.5-50.1) % Sac % (Auto) (2-8) % Eos % (Auto) (1.0-3.0) % Baso % (Auto) (0.0-1.0) % Sodium 138 (135-145) mmol/L Potassium 4.4 (3.6-5.0) mmol/L Chloride 104 (101-111) mmol/L Carbon Dioxide 22.0 (21.0-31.0) mmol/L Anion Gap 16.4 BUN 30 H (7-18) mg/dL Creatinine 1.1 (0.6-1.3) mg/dL Est Cr Clr Drug Dosing 48.22 mL/min Estimated GFR (MDRD) > 60 BUN/Creatinine Ratio 27.27 Glucose 81 (74-105) mg/dL POC Glucose (83-110) mg/dl Lactic Acid (0.5-2.2) mmol/L Calcium 8.8 (8.4-10.2) mg/dl Total Bilirubin 0.9 (0.2-1.0) mg/dL AST 25 (10-42) IU/L ALT 17 (10-60) IU/L Alkaline Phosphatase 49 (42-121) IU/L B-Natriuretic Peptide 63 (0-100) pg/ml Total Protein 7.3 (6.7-8.2) g/dl Albumin 3.0 L (3.2-5.5) g/dl Globulin 4.3 Albumin/Globulin Ratio 0.70 Meds: Medications Discontinued Medications Generic Name Dose Route Start Last Admin Trade Name Freq PRN Reason Stop Dose Admin Acetaminophen 650 mg 06/06/17 20:37 06/06/17 21:08 Tylenol RECTAL 06/06/17 20:38 650 mg NOW STA Administration Sodium Chloride 1,000 mls @ 100 mls/hr 06/06/17 20:38 06/06/17 21:06 Normal Saline IV 06/07/17 06:37 100 mls/hr .BOLUS ONE Administration Piperacillin Sod/Tazobactam 100 mls @ 200 mls/hr 06/06/17 21:21 06/06/17 21: 40 Sod 3.375 gm/ Sodium Chloride IV 06/06/17 21:50 200 mls/hr ONETIME ONE Administration Norepinephrine Bitartrate 4 mg 250 mls @ 3.75 mls/hr 06/06/17 22:30 06/06/17 22:30 / Dextrose/Water IV 1 mcg/min TITRATE TERESA 3.75 mls/hr Protocol Administration 1 MCG/MIN - Re-Assessments/Exams Free Text/Narrative Re-Assessment/Exam: 06/06/17 21:17 NH reported contact with patient's daughter Ellie vaca and code status confirmed as full code. Departure - Departure Time of Disposition: 22:45 Disposition: DC/Tfer to Acute Hospital 02 Clinical Impression: Tachycardia Bilateral pneumonia Qualifiers: Pneumonia type: due to unspecified organism Lung location: lower lobe of lung Qualified Code(s): J18.9 - Pneumonia, unspecified organism Sepsis Qualifiers: Sepsis type: sepsis due to unspecified organism Qualified Code(s): A41.9 - Sepsis, unspecified organism Chronic obstructive pulmonary disease Qualifiers: COPD type: chronic bronchitis Chronic bronchitis type: unspecified Qualified Code(s): J42 - Unspecified chronic bronchitis - Discharge Information Forms: ED Department Discharge - My Orders Last 24 Hours: My Active Orders 06/06/17 20:36 Blood Culture x2 Reflex Set [OM.PC] Stat 06/06/17 20:39 EKG 12 Lead [EKG Documentation Completion] [RC] URGENT 06/06/17 21:00 CULTURE BLOOD [BC] Stat 06/06/17 21:07 CULTURE BLOOD [BC] Stat 06/06/17 21:17 Code Status [Resuscitation Status] Stat - Assessment/Plan Last 24 Hours: My Active Orders 06/06/17 20:36 Blood Culture x2 Reflex Set [OM.PC] Stat 06/06/17 20:39 EKG 12 Lead [EKG Documentation Completion] [RC] URGENT 06/06/17 21:00 CULTURE BLOOD [BC] Stat 06/06/17 21:07 CULTURE BLOOD [BC] Stat 06/06/17 21:17 Code Status [Resuscitation Status] Stat
[2017-06-06 21:35] LABS: CHLORIDE,CL 104 mmol/L (101-111); SODIUM,NA 138 mmol/L (135-145)
[2017-06-06 21:46] VITALS: BP 112/51
[2017-06-06] MEDS ORDERED: Norepinephrine 4 MG in Dextrose 5% in Water 246 ML IV SCH ×2 (22:30)
--- NOTE | 2017-06-07 11:26 | EKG ---
06/06/2017 - EB LANE - TIME OF EK hours. FINDINGS: EKG shows supraventricular tachycardia at rate of 171 per minute. [facility] /[id number]
== END 2017-06-06 22:45 ==
LOC: DL.ED 20:29
DX: A41.9 Sepsis, unspecified organism (principal); J18.9 Pneumonia, unspecified organism; J42 Unspecified chronic bronchitis; R00.0 Tachycardia, unspecified; I25.10 Atherosclerotic heart disease of native coronary artery without angina pectoris; J44.9 Chronic obstructive pulmonary disease, unspecified; I10 Essential (primary) hypertension; Z88.0 Allergy status to penicillin; E11.40 Type 2 diabetes mellitus with diabetic neuropathy, unspecified; Z88.8 Allergy status to other drugs, medicaments and biological substances; Z79.899 Other long term (current) drug therapy; Z86.2 Personal history of diseases of the blood and blood-forming organs and certain disorders involving the immune mechanism; Z87.891 Personal history of nicotine dependence
CPT/HCPCS: 36415; 71010; 80053; 82962; 83605; 83880; 85025; 87040; 93005; 93010; 96365; 96366; 96368; 96375; 99285; A9270; J2543; J7030; J7050; J7060